=== PATIENT | female | born 1985 | race African-American/Black ===

== ENCOUNTER 2016-09-02 09:17 | Emergency (ER) | payer MEDICAID ==
[2016-09-02] MEDS ORDERED: NORMAL SALINE 1000 ML 1,000 ML IV ONE (11:27)
[2016-09-02] MEDS ORDERED: ACETAMINOPHEN 325 MG TABLET PO ONE (11:27)
[2016-09-02] MEDS ORDERED: DIPHENHYDRAMINE HCL 50 MG/ML VIAL IV ONE (11:27)
[2016-09-02 11:41] LABS: ABSOLUTE EOSINOPHILS # (AUTO) 0.1 10^3/uL (0.0-0.6); ABSOLUTE LYMPHOCYTES (AUTO) 2.1 10^3/uL (0.5-4.7); ABSOLUTE MONOCYTES (AUTO) 0.3 10^3/uL (0.1-1.4); ABSOLUTE NEUT (AUTO) 4.3 10^3/uL (1.7-8.2); BASOPHILS % (AUTO) 0.5 % (0-2); EOSINOPHILS % (AUTO) 0.8 % (0-6); HEMATOCRIT 40.6 % (36.0-47.0); HEMOGLOBIN 12.8 g/dL (12.0-15.5); HGB HCT DIFFERENCE -2.2; LYMPHOCYTES % (AUTO) 30.5 % (13-45); MEAN CORPUSCULAR HEMOGLOBIN 24.3 pg (27.0-33.4); MEAN CORPUSCULAR HGB CONC 31.4 g/dL (32.0-36.0); MEAN CORPUSCULAR VOLUME 77 fl (80-97); RED BLOOD COUNT 5.26 10^6/uL (3.72-5.28); RED CELL DISTRIBUTION WIDTH 18.1 % (11.5-14.0); SEGMENTED NEUTROPHILS % (AUTO) 63.2 % (42-78); WHITE BLOOD COUNT 6.9 10^3/uL (4.0-10.5)
[2016-09-02 12:00] LABS: ADD ON TESTING BLD IN LAB ACKNOWLEDGE; ALANINE AMINOTRANSFERASE 39 U/L (9-52); ALBUMIN 4.6 g/dL (3.5-5.0); ALKALINE PHOSPHATASE 85 U/L (38-126); ANION GAP 15 (5-19); ASPARTATE AMINO TRANSFERASE 22 U/L (14-36); BILIRUBIN,TOTAL 0.9 mg/dL (0.2-1.3); BLOOD UREA NITROGEN 7 mg/dL (7-20); CALCIUM 9.8 mg/dL (8.4-10.2); CARBON DIOXIDE 22 mmol/L (22-30); CHLORIDE 102 mmol/L (98-107); CREATININE RESULT 0.82 mg/dL (0.52-1.25); GLUCOSE 80 mg/dL (75-110); LIPASE 46.3 U/L (23-300); POTASSIUM 3.8 mmol/L (3.6-5.0); SODIUM 139.3 mmol/L (137-145)
[2016-09-02 12:26] LABS: AMORPHOUS SEDIMENT,URINE TRACE /HPF; APPEARANCE,URINE TURBID; BILIRUBIN,URINE NEGATIVE (NEGATIVE); GLUCOSE, URINE NEGATIVE (NEGATIVE); KETONES,URINE TRACE mg/dL (NEGATIVE); LEUKOCYTE ESTERASE,URINE NEGATIVE (NEGATIVE); NITRITE,URINE NEGATIVE (NEGATIVE); PROTEIN,URINE 30 mg/dL (NEGATIVE); URINE SPECIFIC GRAVITY 1.027; UROBILINOGEN,URINE NEGATIVE mg/dL (<2.0)
--- NOTE | 2016-09-02 12:34 | ER Document Report ---
ED GI/ - General Chief Complaint: Vomiting Stated Complaint: NAUSEA/HEADACHE Mode of Arrival: Ambulatory Information source: Patient Notes: Patient presents complaining of headache pain off and on daily for the past 2 months. Patient also reports nausea and vomiting for the past week. Patient reports vomiting 2 episodes today. Patient denies any fever or urinary symptoms. Patient does report lower abdominal pain for the past 2-3 days that wraps around to her lower back area. Patient denies any vaginal bleeding or discharge. Patient is concerned that she may be as her last menstrual period was in June. TRAVEL OUTSIDE OF THE [place] IN LAST 30 DAYS: No - HPI Patient complains to provider of: Abdominal pain. No: Vaginal bleeding, Vaginal discharge Onset: Other - Abdominal pain x1 week, headache 2 months off and on Timing/Duration: Gradual Quality of pain: Cramping Pain Level: 5 Location: Low back, Pelvis Vaginal bleeding (Compared to normal period): None Sexual history: Active, Unprotected intercourse Associated symptoms: Nausea, Vomiting. denies: Dysuria, Fever, Urinary hesitancy, Urinary frequency, Urinary retention, Urinary urgency, Vaginal discharge Exacerbated by: Denies Relieved by: Denies Similar symptoms previously: Yes Recently seen / treated by doctor: No - Related Data Allergies/Adverse Reactions: No Known Allergies Allergy (Verified 09/02/16 09:34) Past Medical History - General Information source: Patient Last Menstrual Period: 06/2016 - Social History Smoking Status: Current Some Day Smoker Chew tobacco use (# tins/day): No Frequency of alcohol use: None Drug Abuse: None Occupation: none Lives with: Family Family History: Reviewed & Not Pertinent Patient has suicidal ideation: No Patient has homicidal ideation: No - Past Medical History Cardiac Medical History: Reports: Hx Hypertension - preclampsia Pulmonary Medical History: Denies: Hx Tuberculosis Endocrine Medical History: Reports: Hx Diabetes Mellitus Type 2 - gestational Renal/ Medical History: Denies: Hx Peritoneal Dialysis Skin Medical History: Reports Hx MRSA Surgical Hx: Negative - Immunizations Immunizations up to date: Yes Hx Diphtheria, Pertussis, Tetanus Vaccination: Yes Review of Systems - Review of Systems Constitutional: No symptoms reported. denies: Fever, Recent illness EENT: No symptoms reported. denies: Blurred vision Cardiovascular: No symptoms reported. denies: Chest pain Respiratory: No symptoms reported. denies: Cough, Short of breath Gastrointestinal: Abdominal pain, Nausea, Vomiting Genitourinary: No symptoms reported. denies: Dysuria, Flank pain Female Genitourinary: - Possible. denies: Vaginal discharge, Vaginal bleeding Musculoskeletal: Back pain Skin: No symptoms reported Hematologic/Lymphatic: No symptoms reported Neurological/Psychological: No symptoms reported Physical Exam - Vital signs Vitals: Temp Pulse Resp BP Pulse Ox 98.0 F 77 18 149/85 H 100 09/02/16 09:32 09/02/16 09:32 09/02/16 09:32 09/02/16 09:32 09/02/16 09:32 - General General appearance: Appears well, Alert In distress: None Notes: PHYSICAL EXAMINATION: GENERAL: Morbidly obese, Well-appearing and in no acute distress. HEAD: Atraumatic, normocephalic. EYES: sclera anicteric, conjunctiva are normal.PERRL ENT: nares patent. Moist mucous membranes. NECK: Normal range of motion, supple without lymphadenopathy, no meningismus LUNGS: CTAB and equal. No wheezes rales or rhonchi. HEART: Regular rate and rhythm without murmurs ABDOMEN: Soft, lower pelvic tenderness, normal bowel sounds, no guarding. EXTREMITIES: Normal range of motion, no pitting edema. No cyanosis. BACK: No midline tenderness, no step-off or deformity. No CVA tenderness, lower lumbar paraspinal tenderness NEUROLOGICAL: Cranial nerves grossly intact. Normal speech. Normal gait. PSYCH: Normal mood, normal affect. SKIN: Warm, Dry, normal turgor, no rashes or lesions noted Course - Re-evaluation Re-evalutation: 09/02/16 12:[address] Perez regarding patient presentation, exam findings and history. Agrees with plan for US of abd if preg test positive and recommends CT imaging of the head. 09/02/16 15:09 Reviewed patient's diagnostic studies as well as repeat blood pressure with Dr. Perez. Manual blood pressure 152/89. Recommends consultation with [facility] [employer] on- call. Consulted with Dr. Hauser and discussed patient's history, presentation symptoms. Reviewed patient's diagnostics. Recommends having patient start labetalol 200 mg orally twice a day and to follow-up with the health department on Monday. 09/02/16 15:[address] Perez consultation with Dr. Hauser, and the planned medication regimen. Advises only placing patient on labetalol 100 mg orally twice a day (given BP reading) and to have the [facility] service titrate her medication as needed. Discussed plan of care with patient. Patient encouraged to follow-up with health Department on Monday for further evaluation. - Vital Signs Vital signs: Temp Pulse Resp BP Pulse Ox 97.8 F 64 18 139/67 H 100 09/02/16 15:27 09/02/16 15:27 09/02/16 15:27 09/02/16 15:27 09/02/16 15:27 - Laboratory Result Diagrams: 09/02/16 09:50 09/02/16 09:50 Laboratory results interpreted by me: 09/02/16 09/02/16 09/02/16 09:50 09:50 09:50 MCV 77 L MCH 24.3 L MCHC 31.4 L RDW 18.1 H Serum HCG, Qual POSITIVE H Beta HCG, Quant Urine Protein 30 H Urine Ketones TRACE H 09/02/16 09:50 MCV MCH MCHC RDW Serum HCG, Qual Beta HCG, Quant 58983.00 H Urine Protein Urine Ketones 09/02/16 14:49 Labs- Entire Visit 09/02/16 09/02/16 09/02/16 09:50 09:50 09:50 WBC 6.9 RBC 5.26 Hgb 12.8 Hct 40.6 MCV 77 L MCH 24.3 L MCHC 31.4 L RDW 18.1 H Plt Count 446 Seg Neutrophils % 63.2 Lymphocytes % 30.5 Monocytes % 5.0 Eosinophils % 0.8 Basophils % 0.5 Absolute Neutrophils 4.3 Absolute Lymphocytes 2.1 Absolute Monocytes 0.3 Absolute Eosinophils 0.1 Absolute Basophils 0.0 Sodium 139.3 Potassium 3.8 Chloride 102 Carbon Dioxide 22 Anion Gap 15 BUN 7 Creatinine 0.82 Est GFR ( Amer) > 60 Est GFR (Non-Af Amer) > 60 Glucose 80 Calcium 9.8 Total Bilirubin 0.9 Direct Bilirubin 0.0 AST 22 ALT 39 Alkaline Phosphatase 85 Total Protein 8.0 Albumin 4.6 Lipase 46.3 Serum HCG, Qual POSITIVE H Beta HCG, Quant Total Beta HCG Urine Color Urine Appearance Urine pH Ur Specific [place] Urine Protein Urine Glucose (UA) Urine Ketones Urine Blood Urine Nitrite Urine Bilirubin Urine Urobilinogen Ur Leukocyte Esterase Urine WBC (Auto) Urine RBC (Auto) Squamous Epi Cells Auto Amorphous Sediment Auto Urine Mucus (Auto) Urine Ascorbic Acid 09/02/16 09/02/16 09:50 09:50 WBC RBC Hgb Hct MCV MCH MCHC RDW Plt Count Seg Neutrophils % Lymphocytes % Monocytes % Eosinophils % Basophils % Absolute Neutrophils Absolute Lymphocytes Absolute Monocytes Absolute Eosinophils Absolute Basophils Sodium Potassium Chloride Carbon Dioxide Anion Gap BUN Creatinine Est GFR ( Amer) Est GFR (Non-Af Amer) Glucose Calcium Total Bilirubin Direct Bilirubin AST ALT Alkaline Phosphatase Total Protein Albumin Lipase Serum HCG, Qual Beta HCG, Quant 66953.00 H Total Beta HCG POSITIVE Urine Color YELLOW Urine Appearance TURBID Urine pH 5.0 Ur Specific [place] 1.027 Urine Protein 30 H Urine Glucose (UA) NEGATIVE Urine Ketones TRACE H Urine Blood NEGATIVE Urine Nitrite NEGATIVE Urine Bilirubin NEGATIVE Urine Urobilinogen NEGATIVE Ur Leukocyte Esterase NEGATIVE Urine WBC (Auto) 4 Urine RBC (Auto) 1 Squamous Epi Cells Auto 7 Amorphous Sediment Auto TRACE Urine Mucus (Auto) MANY Urine Ascorbic Acid NEGATIVE 09/02/16 14:50 09/02/16 15:10 09/02/16 18:54 - Diagnostic Test Radiology reviewed: Reports reviewed Discharge - Discharge Clinical Impression: Hypertension affecting in first trimester Qualifiers: Weeks of gestation: 8 weeks Qualified Code(s): Z3A.08 - 8 weeks gestation of Head ache Qualifiers: Headache type: unspecified Headache chronicity pattern: unspecified pattern Intractability: not intractable Qualified Code(s): R51 - Headache Subchorionic bleed Qualifiers: Fetus number: single or unspecified fetus Trimester: first trimester Qualified Code(s): O41.8X10 - Other specified disorders of amniotic fluid and membranes, first trimester, not applicable or unspecified Condition: Stable Disposition: HOME, SELF-CARE Instructions: ([facility]), Pelvic Pain in ([facility]), Hypertension in ([facility]), Headache ([facility]), Nausea or Vomiting, Nonspecific ([facility]), Use of Diphenhydramine Additional Instructions: Return immediately for any new or worsening symptoms Followup with the health department on Monday for recheck You may take Benadryl [id number] as directed to help with her nausea and vomiting symptoms Take Tylenol [id number] to help with headache pain. Prescriptions: Labetalol HCl 100 mg PO BID #60 tablet Labetalol HCl [Normodyne 200 mg Tablet] 200 mg PO Q12 #60 tablet Referrals: JOAO ROLLE MD [Primary Care Provider] - Follow up as needed [facility]NO LOCAL MD] - 09/05/16
[2016-09-02 15:39] VITALS: BP 139/67
== END 2016-09-02 15:45 | disposition home or self-care (01) ==
LOC: ER 09:17
DX: O16.1 Unspecified maternal hypertension, first trimester (principal); O26.891 Other specified pregnancy related conditions, first trimester; R51 Headache; R10.30 Lower abdominal pain, unspecified; O20.8 Other hemorrhage in early pregnancy; O99.331 Smoking (tobacco) complicating pregnancy, first trimester; F17.200 Nicotine dependence, unspecified, uncomplicated; Z86.14 Personal history of Methicillin resistant Staphylococcus aureus infection; Z3A.08 8 weeks gestation of pregnancy
CPT/HCPCS: 99284; 96361; 96374; 36415; 84702; 83690; 84703; 85025; 80053; 81001; 76817; 70450; J3490; J1200; J7030

== ENCOUNTER 2017-01-28 17:53 | Outpatient (CLI) | payer MEDICAID ==
[2017-01-28 18:45] LABS: APPEARANCE,URINE SLIGHTLY-CLOUDY; BILIRUBIN,URINE NEGATIVE (NEGATIVE); GLUCOSE, URINE NEGATIVE (NEGATIVE); KETONES,URINE NEGATIVE (NEGATIVE); LEUKOCYTE ESTERASE,URINE NEGATIVE (NEGATIVE); NITRITE,URINE NEGATIVE (NEGATIVE); PROTEIN,URINE 30 mg/dL (NEGATIVE); URINE SPECIFIC GRAVITY 1.034
[2017-01-28 19:06] LABS: URINE BARBITURATES SCREEN NEGATIVE; URINE METHADONE SCREEN NEGATIVE; URINE OPIATES LOW NEGATIVE; URINE PHENCYCLIDINE SCREEN NEGATIVE
[2017-01-28] MEDS ORDERED: HYDROXYZINE PAMOATE 50 MG CAPSULE PO PRN (19:07)
[2017-01-28 20:09] LABS: ABSOLUTE BASOPHILS # (AUTO) 0.1 10^3/uL (0.0-0.2); ABSOLUTE EOSINOPHILS # (AUTO) 0.1 10^3/uL (0.0-0.6); ABSOLUTE LYMPHOCYTES (AUTO) 2.1 10^3/uL (0.5-4.7); ABSOLUTE MONOCYTES (AUTO) 0.7 10^3/uL (0.1-1.4); ABSOLUTE NEUT (AUTO) 7.3 10^3/uL (1.7-8.2); BASOPHILS % (AUTO) 0.5 % (0-2); EOSINOPHILS % (AUTO) 1.3 % (0-6); HEMATOCRIT 33.2 % (36.0-47.0); HEMOGLOBIN 10.8 g/dL (12.0-15.5); HGB HCT DIFFERENCE -0.8; LYMPHOCYTES % (AUTO) 20.3 % (13-45); MEAN CORPUSCULAR HEMOGLOBIN 26.7 pg (27.0-33.4); MEAN CORPUSCULAR HGB CONC 32.4 g/dL (32.0-36.0); MEAN CORPUSCULAR VOLUME 82 fl (80-97); MONOCYTES % (AUTO) 6.6 % (3-13); RED BLOOD COUNT 4.03 10^6/uL (3.72-5.28); RED CELL DISTRIBUTION WIDTH 15.1 % (11.5-14.0); SEGMENTED NEUTROPHILS % (AUTO) 71.3 % (42-78); WHITE BLOOD COUNT 10.3 10^3/uL (4.0-10.5)
[2017-01-28 20:25] LABS: ALANINE AMINOTRANSFERASE 22 U/L (9-52); ALBUMIN 3.4 g/dL (3.5-5.0); ALKALINE PHOSPHATASE 103 U/L (38-126); ANION GAP 9 (5-19); ASPARTATE AMINO TRANSFERASE 14 U/L (14-36); BILIRUBIN,DIRECT 0.3 mg/dL (0.0-0.4); BILIRUBIN,TOTAL 0.4 mg/dL (0.2-1.3); BLOOD UREA NITROGEN 8 mg/dL (7-20); CALCIUM 9.1 mg/dL (8.4-10.2); CARBON DIOXIDE 22 mmol/L (22-30); CHLORIDE 108 mmol/L (98-107); CREATININE RESULT 0.71 mg/dL (0.52-1.25); GLUCOSE 70 mg/dL (75-110); LDH 373 U/L (313-618); POTASSIUM 4.3 mmol/L (3.6-5.0); SODIUM 139.2 mmol/L (137-145); URIC ACID 2.6 mg/dL (2.5-6.2)
[2017-01-28 20:38] LABS: URINE PROTEIN 10.1 mg/dL (<12)
--- NOTE | 2017-01-28 20:53 | RADIOLOGY REPORT (SQ) ---
EXAM DESCRIPTION: U/S OB LIMITED COMPLETED DATE/TIME: 01/28/2017 8:33 pm REASON FOR STUDY: 29.6wk IUP, cramping, cervical length, placenta COMPARISON: None. TECHNIQUE: Limited transabdominal grayscale ultrasound for evaluation of specific requested obstetri ashely parameters. LIMITATIONS: None. FINDINGS: CERVICAL LENGTH: 3.1 cm Closed. BELKIS: Not performed. FHR: 143 beats per minute. PRESENTATION: Transverse OTHER: No other significant findings. IMPRESSION: LIMITED OBSTETRICAL ULTRASOUND WITH MEASURED PARAMETERS DELINEATED ABOVE. Trimester of : Third trimester - 28 weeks to delivery. TECHNICAL DOCUMENTATION: JOB ID: [id number] [employer]- All Rights Reserved
[2017-01-28 21:12] LABS: ADD HIVPANEL? NO; HIV (1 AND 2) ANTIBODY NEGATIVE (NEGATIVE)
[2017-01-28 21:29] LABS: URINE CREATININE 380.2 mg/dL (16-327)
[2017-01-30 15:37] LABS: HEPATITIS C VIRUS AB <0.1 s/co ratio (0.0-0.9)
== END 2017-01-28 20:49 | disposition home or self-care (01) ==
LOC: EDSTATUS 18:20 → LC 18:22
PROVIDERS: ATTEND Obstetrics & Gynecology
DX: O47.02 False labor before 37 completed weeks of gestation, second trimester (principal); O24.419 Gestational diabetes mellitus in pregnancy, unspecified control; Z3A.29 29 weeks gestation of pregnancy
CPT/HCPCS: 36415; 76815; 80053; 80307; 81001; 82570; 82962; 83036; 83615; 84156; 84550; 85025; 86592; 86701; 86762; 86803; 86804; 87340

== ENCOUNTER 2017-02-06 14:14 | Emergency (ER) | payer MEDICAID ==
--- NOTE | 2017-02-06 15:54 | ER Document Report ---
ED Medical Screen (RME) - General Chief Complaint: Rectal Pain Stated Complaint: BACK PAIN Time Seen by Provider: 02/06/17 15:49 Notes: Is a 31-year-old female, 31 weeks , presents with rectal pain and feeling like there is a nail in her rectum for the past week. She said that she swallowed a nail when she was younger and thinks that this may be causing her symptoms. She noticed a small amount of blood in her stool the other day. She is having soft stools. PE: NAD. Abdomen soft and non-tender. I have greeted and performed a rapid initial assessment of this patient. A comprehensive ED assessment and evaluation of the patient, analysis of test results and completion of the medical decision making process will be conducted by additional ED providers. TRAVEL OUTSIDE OF THE [place] IN LAST 30 DAYS: No - Related Data Allergies/Adverse Reactions: No Known Allergies Allergy (Verified 02/06/17 14:20) Past Medical History - Past Medical History Cardiac Medical History: Reports: Hx Hypertension - preclampsia Pulmonary Medical History: Denies: Hx Tuberculosis Endocrine Medical History: Reports: Hx Diabetes Mellitus Type 2 - gestational Renal/ Medical History: Denies: Hx Peritoneal Dialysis Skin Medical History: Reports Hx MRSA - Immunizations Immunizations up to date: Yes Hx Diphtheria, Pertussis, Tetanus Vaccination: Yes Physical Exam - Vital signs Vitals: Temp Pulse Resp BP Pulse Ox 97.9 F 104 H 20 145/85 H 98 02/06/17 14:20 02/06/17 14:20 02/06/17 14:20 02/06/17 14:20 02/06/17 14:20 Course - Vital Signs Vital signs: Temp Pulse Resp BP Pulse Ox 97.9 F 104 H 20 145/85 H 98 02/06/17 14:20 02/06/17 14:20 02/06/17 14:20 02/06/17 14:20 02/06/17 14:20
--- NOTE | 2017-02-06 16:30 | ER Document Report ---
ED General - General Mode of Arrival: Ambulatory Information source: Patient TRAVEL OUTSIDE OF THE [place] IN LAST 30 DAYS: No - HPI Onset: Other - 1 week Quality of pain: Achy, Burning, Sharp, Stabbing, Throbbing Exacerbated by: Other - pain is worse at night time - General Chief Complaint: Rectal Pain Stated Complaint: BACK PAIN Time Seen by Provider: 02/06/17 15:49 Notes: 1616 Patient is a 31 year old female who presents to the ED with complaints of rectal pain followed by low back pain with onset 1 week ago. Patient states the pain is in the bilateral sides of her back and is constant and worse at night. Patient states the pain is sharp, stabbing, aching, burning and throbbing. Patient states when she was younger she swallowed a 9cm nail and upon being evaluated she was told it disappeared and it was unknown where it was located. Patient states she believes the nail is in her bowels and that is causing the pain she is feeling. Patient states she has dealt with constipation ever since this incident. Patient is currently 31 weeks . Patient is G6, P3, A2. Patient denies any burning with urination or hematuria. Patient states 2 days ago she had blood in her stool. Patient states her only complication with is that she has protein in her urine that she was informed of 2 days ago. Patient states she was being seen at the health department but was given a referral to [facility]. Patient states she has had normal movement. Patient has not taken Tylenol or anything for her pain and denies pain medication at this time. No other concerns or complaints at this time. (JOVITA BASHIR) - Related Data Allergies/Adverse Reactions: No Known Allergies Allergy (Verified 02/06/17 14:20) Past Medical History - General Information source: Patient - Social History Smoking Status: Current Every Day Smoker Cigarette use (# per day): Yes Chew tobacco use (# tins/day): No Frequency of alcohol use: None Drug Abuse: None Family History: Reviewed & Not Pertinent Patient has suicidal ideation: No Patient has homicidal ideation: No - Medical History Medical History: Negative - Past Medical History Cardiac Medical History: Reports: Hx Hypertension - preclampsia Pulmonary Medical History: Denies: Hx Tuberculosis Endocrine Medical History: Reports: Hx Diabetes Mellitus Type 2 - gestational Renal/ Medical History: Denies: Hx Peritoneal Dialysis Skin Medical History: Reports Hx MRSA - Immunizations Immunizations up to date: Yes Hx Diphtheria, Pertussis, Tetanus Vaccination: Yes Review of Systems - Review of Systems Constitutional: No symptoms reported EENT: No symptoms reported Cardiovascular: No symptoms reported Respiratory: No symptoms reported Gastrointestinal: See HPI, Constipation, Rectal bleeding - 2 days ago Genitourinary: No symptoms reported. denies: Burning, Hematuria Female Genitourinary: No symptoms reported Musculoskeletal: See HPI, Back pain - low Skin: No symptoms reported Hematologic/Lymphatic: No symptoms reported Neurological/Psychological: No symptoms reported Physical Exam - Vital signs Vitals: Temp Pulse Resp BP Pulse Ox 97.9 F 104 H 20 145/85 H 98 02/06/17 14:20 02/06/17 14:20 02/06/17 14:20 02/06/17 14:20 02/06/17 14:20 - Notes Notes: GENERAL: Alert, interacts well. No acute distress. Overweight HEAD: Normocephalic, atraumatic. EYES: Pupils equal, round, and reactive to light. Extraocular movements intact. ENT: Oral mucosa moist, tongue midline. NECK: Full range of motion. Supple. Trachea midline. LUNGS: Clear to auscultation bilaterally, no wheezes, rales, or rhonchi. No respiratory distress. HEART: Regular rate and rhythm. No murmurs, gallops, or rubs. ABDOMEN: Abdomen is gravid consistent with dates, RLQ tenderness to palpation. Bowel sounds present in all 4 quadrants. No guarding, rebound or rigidity. BACK: tenderness to palpation over right SI joint RECTAL: appears to have mild tenderness on rectal exam, no blood present, 1 non thrombosed external hemorrhoid at the 6 o'clock position, no evidence of nail foreign body in rectum after ingestion of foreign body 15 years ago; Chaperoned by Justina Singh EXTREMITIES: Moves all 4 extremities spontaneously. No edema, radial and dorsalis pedis pulses 2/4 bilaterally. No cyanosis. NEUROLOGICAL: Alert and oriented x3. Normal speech. Biceps and patellar DTRs 2+ bilaterally. PSYCH: Normal affect, normal mood. SKIN: Warm, dry, normal turgor. No rashes or lesions noted. (JOVITA BASHIR) Course - Re-evaluation Re-evalutation: 02/06/17 17:55 Urinalysis shows minimal protein but no signs of infection or blood. At present symptoms are not consistent with a nail that she swallowed 15 years ago possibly causing her pain. Given the fact that she is I do not feel it is prudent to perform an x-ray to look for radiopaque foreign body that was ingested 15 years ago. Presentation is more consistent with SI joint pain related to . Discussed stretches and positioning techniques that can reduce this pain. Discharged home. (GABRIEL GARCIA) - Vital Signs Vital signs: Temp Pulse Resp BP Pulse Ox 97.9 F 101 H 19 132/82 H 99 02/06/17 14:20 02/06/17 18:15 02/06/17 18:15 02/06/17 18:15 02/06/17 18:15 - Laboratory Laboratory results interpreted by me: 02/06/17 16:35 Urine Protein 30 H Urine Urobilinogen 4.0 H Discharge - Discharge Clinical Impression: Pain of right sacroiliac joint, Third trimester Condition: Stable Disposition: HOME, SELF-CARE Additional Instructions: Please try sleeping on your side with a pillow between her knees. This can decrease some of the pain that you are having in your back. Please also try arching her back into a cat like position several times a day to stretch your back. This can also help to relieve your pain. Referrals: SHAI ACUNA MD [ACTIVE STAFF] - Follow up as needed Scribe Attestation: 02/06/17 20:20 I personally performed the services described in the documentation, reviewed and edited the documentation which was dictated to the scribe in my presence, and it accurately records my words and actions. (GABRIEL GARCIA) Scribe Documentation - Scribe Written by Rachel:: rachel Walton, 02/06/2017, 1809 acting as scribe for :: Tiffany
[2017-02-06 16:51] LABS: APPEARANCE,URINE SLIGHTLY-CLOUDY; BILIRUBIN,URINE NEGATIVE (NEGATIVE); GLUCOSE, URINE NEGATIVE (NEGATIVE); KETONES,URINE NEGATIVE (NEGATIVE); LEUKOCYTE ESTERASE,URINE NEGATIVE (NEGATIVE); NITRITE,URINE NEGATIVE (NEGATIVE); PROTEIN,URINE 30 mg/dL (NEGATIVE); URINE SPECIFIC GRAVITY 1.031
[2017-02-06 18:16] VITALS: BP 132/82
== END 2017-02-06 18:15 | disposition home or self-care (01) ==
LOC: ER 14:14
DX: O26.893 Other specified pregnancy related conditions, third trimester (principal); M53.3 Sacrococcygeal disorders, not elsewhere classified; O99.333 Smoking (tobacco) complicating pregnancy, third trimester; F17.213 Nicotine dependence, cigarettes, with withdrawal; O14.93 Unspecified pre-eclampsia, third trimester; O24.419 Gestational diabetes mellitus in pregnancy, unspecified control; Z3A.31 31 weeks gestation of pregnancy; Z86.14 Personal history of Methicillin resistant Staphylococcus aureus infection
CPT/HCPCS: 81001; 99283

== ENCOUNTER → 2017-02-09 | Outpatient (CLI) | payer MEDICAID ==
--- NOTE | 2017-02-09 18:03 | RADIOLOGY REPORT (SQ) ---
EXAM DESCRIPTION: U/S OB 14+ TRNABD 1GES W/O DOP COMPLETED DATE/TIME: 02/09/2017 5:09 pm REASON FOR STUDY: THIRD TRIMESTER SIZE AND DATES AND ANATOMY SCAN Z34.83 ENCOUNTER FOR SUPRVSN OF N ORMAL , THIRD TRIM COMPARISON: 09/02/2016, 01/28/2017 TECHNIQUE: Static and Dynamic grayscale imaging performed of gravid uterus using transabdominal appr oach. Additional selected color Doppler and spectral images recorded. All stored on PACS. LIMITATIONS: None. FINDINGS: EGA: By multiple measurements, estimated age is 31 weeks 4 days ELIANA: 04/09/2017 EFW: 1739 g PERCENTILE: 42nd percentile BELKIS: 7.7 cm PLACENTA: Fundal PRESENTATION: Breech ANATOMY: HEART RATE: 162 beats per minute. FOUR CHAMBER HEART: Visualized. THREE VESSEL CORD: Yes. CORD INSERTION: Visualized. KIDNEYS AND BLADDER: Visualized. Appear normal. STOMACH: Visualized. Appears normal. SPINE: Normal as visualized. BRAIN AND LATERAL VENTRICLES: Visualized. Appear normal. OTHER: No other significant finding. MATERNAL ADNEXA: Maternal ovaries not visualized. CERVICAL LENGTH: 3.7 cm Closed. OTHER: No other significant finding. IMPRESSION: LIVING INTRAUTERINE . ESTIMATED GESTATIONAL AGE 31 weeks 4 days NO VISUALIZED ANOMALIES. Trimester of : Third trimester - 28 weeks to delivery. TECHNICAL DOCUMENTATION: JOB ID: [id number] [employer]- All Rights Reserved
== END ==
LOC: RAD 15:06
PROVIDERS: ATTEND Nurse Practitioner Women's Health
DX: Z34.83 Encounter for supervision of other normal pregnancy, third trimester (principal)
CPT/HCPCS: 76805

== ENCOUNTER 2017-02-10 22:04 | Outpatient (CLI) | payer MEDICAID ==
[2017-02-10 22:53] LABS: APPEARANCE,URINE SLIGHTLY-CLOUDY; BILIRUBIN,URINE NEGATIVE (NEGATIVE); GLUCOSE, URINE NEGATIVE (NEGATIVE); KETONES,URINE 20 mg/dL (NEGATIVE); LEUKOCYTE ESTERASE,URINE SMALL (NEGATIVE); NITRITE,URINE NEGATIVE (NEGATIVE); PROTEIN,URINE 100 mg/dL (NEGATIVE); URINE SPECIFIC GRAVITY 1.035
[2017-02-10 23:02] LABS: URINE BARBITURATES SCREEN NEGATIVE; URINE METHADONE SCREEN NEGATIVE; URINE OPIATES LOW NEGATIVE; URINE PHENCYCLIDINE SCREEN NEGATIVE
[2017-02-10] MEDS ORDERED: ACETAMINOPHEN 325 MG TABLET PO ONE (23:08)
[2017-02-10] MEDS ORDERED: PROCHLORPERAZINE MALEATE 10 MG TABLET PO ONE (23:08)
[2017-02-10] MEDS ORDERED: PROCHLORPERAZINE MALEATE 10 MG TABLET ONE (23:12)
[2017-02-10] MEDS ORDERED: ACETAMINOPHEN 325 MG TABLET ONE (23:13)
== END 2017-02-11 00:15 | disposition home or self-care (01) ==
LOC: LC 22:04
PROVIDERS: ATTEND Obstetrics & Gynecology
PROC: 4A1HXCZ Monitoring of Products of Conception, Cardiac Rate, External Approach (ICD-10-PCS; principal; 2017-02-10)
DX: O47.03 False labor before 37 completed weeks of gestation, third trimester (principal); Z3A.31 31 weeks gestation of pregnancy
CPT/HCPCS: 59899; 81001; 80307; J3490; S0183

== ENCOUNTER 2017-02-14 08:15 | Emergency (ER) | payer MEDICAID ==
[2017-02-14] MEDS ORDERED: DIPH/PERTUSS(ACELL)/TETANUS VAC/PF 0.5 ML SYR (>=10YO) IM ONE (08:59)
--- NOTE | 2017-02-14 09:17 | ER Document Report ---
ED Animal Bite - General Chief Complaint: Cat Bite Stated Complaint: LEFT HAND CAT BITE Time Seen by Provider: 02/14/17 08:41 Mode of Arrival: Ambulatory Information source: Patient Notes: Pt is a 31 year old female 32 weeks , who presents to the ER today for bite to her left hand that occurred 2 days ago while trying to help a friend get a stray cat out of her car. Patient's daughter was also with her and bitten by the cat. She states that they did not catch the cat as it ran away after the incident. She states the animal control is aware and still has not coughed. She went to her STAFF FIELD ENGINEER who recommended that she be seen by someone. She denies any redness, drainage from the bite, fever or chills. She states that it does not really hurt anymore. TRAVEL OUTSIDE OF THE [place] IN LAST 30 DAYS: No - Related Data Allergies/Adverse Reactions: No Known Allergies Allergy (Verified 02/06/17 14:20) Past Medical History - General Information source: Patient - Social History Smoking Status: Never Smoker Chew tobacco use (# tins/day): No Frequency of alcohol use: None Drug Abuse: None Family History: Reviewed & Not Pertinent - Past Medical History Cardiac Medical History: Reports: Hx Hypertension - preclampsia Pulmonary Medical History: Denies: Hx Tuberculosis Endocrine Medical History: Reports: Hx Diabetes Mellitus Type 2 - gestational Renal/ Medical History: Denies: Hx Peritoneal Dialysis Skin Medical History: Reports Hx MRSA - Immunizations Immunizations up to date: Yes Hx Diphtheria, Pertussis, Tetanus Vaccination: Yes Review of Systems - Review of Systems Constitutional: No symptoms reported EENT: No symptoms reported Cardiovascular: No symptoms reported Respiratory: No symptoms reported Gastrointestinal: No symptoms reported Genitourinary: No symptoms reported Female Genitourinary: No symptoms reported Musculoskeletal: No symptoms reported Skin: See HPI Hematologic/Lymphatic: No symptoms reported Neurological/Psychological: No symptoms reported Physical Exam - Vital signs Vitals: Temp Pulse Resp BP Pulse Ox 98.1 F 87 16 141/80 H 97 02/14/17 08:22 02/14/17 08:22 02/14/17 08:22 02/14/17 08:22 02/14/17 08:22 - Notes Notes: PHYSICAL EXAMINATION: GENERAL: Well-appearing and in no acute distress. HEAD: Atraumatic, normocephalic. EYES: Pupils equal round and reactive to light, extraocular movements intact, sclera anicteric, conjunctiva are normal. NECK: Normal range of motion, supple without lymphadenopathy LUNGS: CTAB and equal. No wheezes rales or rhonchi. HEART: Regular rate and rhythm without murmurs EXTREMITIES: Normal range of motion, no pitting edema. No cyanosis. NEUROLOGICAL: Cranial nerves grossly intact. Normal sensory/motor exams. PSYCH: Normal mood, normal affect. SKIN: Warm, Dry, normal turgor, 3 tiny puncture anthony with scabs overlying to left dorsal hand at base of 1st digit, no drainage, no erythema, no tenderness to palpation Course - Re-evaluation Re-evalutation: 02/14/17 10:29 Pt refused rabies prophylaxis although I strongly encouraged it due to not having the cat to observe for rabies. She states her STAFF FIELD ENGINEER sent her here to be admitted for rabies injections to "monitor the baby." I did advise her that there is no risk noted with rabies post exposure prophylaxis and that there is no reason to admit her for rabies immunoglobulin and vaccination, she still wants to go back to [place] where her STAFF FIELD ENGINEER is. She states that " [facility] will admit me." I did start her on Augmentin. - Vital Signs Vital signs: Temp Pulse Resp BP Pulse Ox 98.1 F 80 16 142/79 H 98 02/14/17 08:22 02/14/17 09:37 02/14/17 09:37 02/14/17 09:37 02/14/17 09:37 Discharge - Discharge Clinical Impression: Cat bite Qualifiers: Encounter type: initial encounter Qualified Code(s): W55.01XA - Bitten by cat, initial encounter Condition: Stable Disposition: HOME, SELF-CARE Additional Instructions: Return immediately for any new or worsening symptoms. Follow up with primary care provider, call tomorrow to make followup appointment. Prescriptions: Amox Tr/Potassium Clavulanate [Augmentin 875-125 Tablet] 1 tab PO BID 10 Days
[2017-02-14 09:42] VITALS: BP 142/79
== END 2017-02-14 09:38 | disposition home or self-care (01) ==
LOC: ER 08:15
DX: O9A.213 Injury, poisoning and certain other consequences of external causes complicating pregnancy, third trimester (principal); S61.452A Open bite of left hand, initial encounter; W55.01XA Bitten by cat, initial encounter; Z3A.32 32 weeks gestation of pregnancy; Z20.3 Contact with and (suspected) exposure to rabies
CPT/HCPCS: 99283

== ENCOUNTER 2017-04-04 07:16 | Inpatient (IN) | payer MEDICAID ==
[2017-04-04 07:46] LABS: APPEARANCE,URINE SLIGHTLY-CLOUDY; BILIRUBIN,URINE NEGATIVE (NEGATIVE); GLUCOSE, URINE NEGATIVE (NEGATIVE); KETONES,URINE NEGATIVE (NEGATIVE); LEUKOCYTE ESTERASE,URINE MODERATE (NEGATIVE); NITRITE,URINE NEGATIVE (NEGATIVE); PROTEIN,URINE 30 mg/dL (NEGATIVE); URINE SPECIFIC GRAVITY 1.016; UROBILINOGEN,URINE NEGATIVE mg/dL (<2.0)
[2017-04-04 08:05] LABS: URINE BARBITURATES SCREEN NEGATIVE; URINE METHADONE SCREEN NEGATIVE; URINE OPIATES LOW NEGATIVE; URINE PHENCYCLIDINE SCREEN NEGATIVE
[2017-04-04 09:25] LABS: ABSOLUTE BASOPHILS # (AUTO) 0.1 10^3/uL (0.0-0.2); ABSOLUTE EOSINOPHILS # (AUTO) 0.1 10^3/uL (0.0-0.6); ABSOLUTE LYMPHOCYTES (AUTO) 1.6 10^3/uL (0.5-4.7); ABSOLUTE MONOCYTES (AUTO) 0.5 10^3/uL (0.1-1.4); ABSOLUTE NEUT (AUTO) 8.8 10^3/uL (1.7-8.2); BASOPHILS % (AUTO) 0.7 % (0-2); HEMATOCRIT 34.2 % (36.0-47.0); HEMOGLOBIN 11.1 g/dL (12.0-15.5); HGB HCT DIFFERENCE -0.9; LYMPHOCYTES % (AUTO) 14.7 % (13-45); MEAN CORPUSCULAR HEMOGLOBIN 25.7 pg (27.0-33.4); MEAN CORPUSCULAR HGB CONC 32.4 g/dL (32.0-36.0); MEAN CORPUSCULAR VOLUME 79 fl (80-97); MONOCYTES % (AUTO) 4.2 % (3-13); RED BLOOD COUNT 4.31 10^6/uL (3.72-5.28); RED CELL DISTRIBUTION WIDTH 16.2 % (11.5-14.0); SEGMENTED NEUTROPHILS % (AUTO) 79.4 % (42-78)
[2017-04-04 09:43] LABS: URINE CREATININE 223.3 mg/dL (16-327); URINE PROTEIN 17.1 mg/dL (<12)
[2017-04-04 09:45] LABS: ALANINE AMINOTRANSFERASE 21 U/L (9-52); ALBUMIN 3.6 g/dL (3.5-5.0); ALKALINE PHOSPHATASE 172 U/L (38-126); ANION GAP 10 (5-19); ASPARTATE AMINO TRANSFERASE 17 U/L (14-36); BILIRUBIN,DIRECT 0.4 mg/dL (0.0-0.4); BILIRUBIN,TOTAL 0.5 mg/dL (0.2-1.3); BLOOD UREA NITROGEN 5 mg/dL (7-20); CALCIUM 9.3 mg/dL (8.4-10.2); CARBON DIOXIDE 21 mmol/L (22-30); CHLORIDE 107 mmol/L (98-107); CREATININE RESULT 0.63 mg/dL (0.52-1.25); GLUCOSE 74 mg/dL (75-110); LDH 447 U/L (313-618); SODIUM 138.2 mmol/L (137-145); TOTAL PROTEIN 7.2 g/dL (6.3-8.2); URIC ACID 2.8 mg/dL (2.5-6.2)
[2017-04-04 10:26] LABS: ADD HIVPANEL? NO; HIV (1 AND 2) ANTIBODY NEGATIVE (NEGATIVE)
[2017-04-04 10:35] LABS: CHLAM PCR NOT DETECTED (NOT DETECT)
[2017-04-04] MEDS ORDERED: CITRIC ACID/SODIUM CITRATE ORAL SOLN 15 ML UDCUP ONE (12:07)
[2017-04-04] MEDS ORDERED: CEFAZOLIN 2 GM/D5W RTU 2 GM/50 ML RTUPB IV ONE (12:07)
[2017-04-04] MEDS ORDERED: PROPOFOL INJ 200 MG/20 ML VIAL IV ONE (12:11)
[2017-04-04] MEDS ORDERED: OXYTOCIN 10 UNIT/ML VIAL ONE (12:11)
[2017-04-04] MEDS ORDERED: FENTANYL CITRATE INJ/PF 100 MCG/2 ML AMPUL ONE (12:12)
[2017-04-04] MEDS ORDERED: MIDAZOLAM 2 MG/2 ML INJ ONE (12:12)
[2017-04-04] MEDS ORDERED: EPHEDRINE SULFATE INJ 50 MG/1 ML AMPULE ONE (12:12)
[2017-04-04] MEDS ORDERED: KETAMINE HCL INJ 500 MG/10 ML VIAL ONE (12:20)
[2017-04-04] MEDS ORDERED: NALBUPHINE HCL INJ 10 MG/1 ML AMPULE ONE (12:59)
[2017-04-04] MEDS ORDERED: NA PHOS,M-B/NA PHOS,DI-BA (ADULT) 133 ML ENEMA PR PRN (13:15)
[2017-04-04] MEDS ORDERED: BENZOCAINE/MENTHOL AEROSOL SPRAY 56 ML TOP PRN (13:15)
[2017-04-04] MEDS ORDERED: DIPH/PERTUSS(ACELL)/TETANUS VAC/PF 0.5 ML SYR (>=10YO) IM PRN (13:15)
[2017-04-04] MEDS ORDERED: OXYTOCIN/NORMAL SALINE 20 UNIT/1,000 ML RTUINJ IV PRN (13:15)
[2017-04-04] MEDS ORDERED: PROMETHAZINE HCL 25 MG TABLET PO PRN (13:15)
[2017-04-04] MEDS ORDERED: MEASLES,MUMPS&RUBELLA VACC/PF 0.5 ML VIAL SUBCUT PRN (13:15)
[2017-04-04] MEDS ORDERED: PROMETHAZINE HCL INJ 25 MG/1 ML VIAL IV PRN (13:15)
[2017-04-04] MEDS ORDERED: GLYCERIN/WITCH HAZEL LEAF 1 EACH MED..PAD TP PRN (13:15)
[2017-04-04] MEDS ORDERED: MAGNESIUM HYDROXIDE SUSP 30 ML UDCUP PO PRN (13:15)
[2017-04-04] MEDS ORDERED: ZOLPIDEM TARTRATE 5 MG TABLET PO PRN (13:15)
[2017-04-04] MEDS ORDERED: ACETAMINOPHEN WITH CODEINE #3 TABLET PO PRN (13:15)
[2017-04-04] MEDS ORDERED: DIBUCAINE 1% OINTMENT 28 GM TP PRN (13:15)
[2017-04-04] MEDS ORDERED: PSEUDOEPHEDRINE HCL 30 MG TABLET PO PRN (13:15)
[2017-04-04] MEDS ORDERED: DIPHENHYDRAMINE HCL 25 MG CAPSULE PO PRN (13:15)
[2017-04-04] MEDS ORDERED: ACETAMINOPHEN 650 MG SUPP.RECT PR PRN (13:15)
[2017-04-04] MEDS ORDERED: PROMETHAZINE HCL 25 MG SUPP.RECT PR PRN (13:15)
--- NOTE | 2017-04-04 13:32 | OPERATIVE REPORT E ---
Operative Report NAME: KRISTA GALVEZ : 1985 AGE: 31Y DATE OF SURGERY: 04/04/2017 ROOM: LR200 SURGEON: JOLANTA PUGH M.D. DESCRIPTION OF PROCEDURE: I was called emergently to the patient's room for a term labor with ruptured membranes, completely dilated, and a palpable foot in the vagina. At this point, I called emergency . Anesthesia arrived and we were taking her back to the OR when she began pushing and the foot and leg came out of the vagina while she was still in the hospital bed prior to moving her to the OR table. With a subsequent push, both legs were out with the babys' waist at the vagina. At this point, we abandoned the effort to do a and I asked the nurses available to call Dr. Huitron for assistance to have a second doctor in the room. Next, we had the patient push to deliver the baby up to the level of the scapula. After several pushes, she was able to push the baby out to the level of the scapula. The baby's left arm was reduced and delivered. The right arm was very high and difficult to reach at this point. Therefore, I rotated the baby in a counter clockwise motion to attempt to bring the arm down and was able to grasp the elbow and deliver the right arm. We had Piper forceps available. I had the nurse try to hold the baby up so I could place the Piper forceps, but the application was very difficult and the space was very tight. At this point, Dr. Huitron arrived and I held the baby up while he applied the Piper forceps with some difficulty, but he was able to get a good application and deliver the baby. During this time, we also had someone on the abdomen trying to flex the baby's head. The baby was delivered, the cord was cut, and the baby was taken to the nursery. The placenta spontaneously delivered. I examined the perineum and cervix vaginal wu and I saw no lacerations and bleeding was not very heavy. Her uterus was well contracted at this point. The patient was taken back to her room and her care was continued. DICTATING PHYSICIAN: JOLANTA PUGH M.D. [id number] PHY#: [id number] ID: [id number] JOB#: [id number] ACCT: [id number] cc:JOLANTA PUGH M.D. > ERAN
[2017-04-04] MEDS: IBUPROFEN 800 MG TABLET PO SCH (14:00)
[2017-04-04] MEDS ORDERED: ACETAMINOPHEN 100 ML IV ONE (14:06)
[2017-04-04] MEDS ORDERED: ACETAMINOPHEN 100 ML IV SCH (14:45)
[2017-04-04] MEDS ORDERED: MISOPROSTOL 0.2 MG TABLET ONE (15:02)
--- NOTE | 2017-04-04 15:29 | Delivery Summary ---
Del Sum A-C Datetime Report Generated by CPN: 04/04/2017 15:28 DELIVERY PERSONNEL DELIVERY PERSONNEL: ,[id number] Delivery Doctor:: Lavon Huitron MD Anesthesiologist:: Solitario Elizalde MD AUTOMATIC BUFFER:: Brook Olivier CRNA Labor and Delivery Nurse:: ASHOK Amin Labor and Delivery Nurse:: Nicole Leggett RN Environmental Tech:: ASHOK Amin Nurse Practitioner:: HERIBERTO Moody Nursery Nurse:: Nicole Veliz RN Nursery Nurse:: Aby Mitchell RN Student Observers:: [facility] [employer] TECHNICAL MANAGER: ST Becky [employer] TECHNICAL MANAGER: Denise Story CST Additional Personnel: : Dr Elo Singh MATERNAL INFORMATION Delivery Anesthesia: None Medications During Delivery: Ketamine pushed by anesthesia at delivery Medications After Delivery: Pitocin Drip 20 Units/1000ml NSS; Other-Please Comment Meds After Delivery Comment: Cytotec 1000 per rectum placed by Bernard Cross CNM Maternal Complications: Precipitous Labor (<3hrs); Other Other Maternal Complications: Breech No care LABOR SUMMARY EDC: 04/09/2017 00:00 No. Babies in Womb: 1 Attempted: No Labor Anesthesia: None LABOR INFORMATION Reason for Induction: Not Applicable Onset of Labor: 04/03/2017 01:00 Complete Dilatation: 04/04/2017 12:12 Oxytocin: N/A Group B Beta Strep: unknown Antibiotics # of Doses: ancef Antibiotics Time of Last Dose: 1210 Name of Antibiotic Given: Ancef Steroids Given: None Reason Steroids Not Administered: Not Applicable MEMBRANES Membranes Rupture Method: Spontaneous Rupture of Membranes: 04/04/2017 12:00 Length of Rupture (hr): 0.45 Amniotic Fluid Color: Clear Amniotic Fluid Amount: Large Amniotic Fluid Odor: Normal STAGES OF LABOR Stage 1 hr: 35 Stage 1 min: 12 Stage 2 hr: 0 Stage 2 min: 15 Stage 3 hr: 0 Stage 3 min: 4 Total Time in Labor hr: 35 Total Time in Labor min: 31 VAGINAL DELIVERY Episiotomy: None Laceration Extension: N/A Laceration Type: None Laceration Repair: Not Applicable Sponge Count Correct: Yes Sharps Count Correct: Yes BABY A INFORMATION Infant Delivery Date/Time: 04/04/2017 12:27 Method of Delivery: Vaginal Born in Route : No : N/A Forceps: Outlet Vacuum Extraction: N/A Shoulder Dystocia : No SHOULDER DYSTOCIA BABY A Shoulder Dystocia Comments: Delivery of feet and body of baby boy up to underarms with spontaneous push by patient at 1213 and maneuvers to resolve; suprapubic;forceps/pipers;Praneeth by MDs x 2 [address] Tomy called and in OR to help Nuchal cord reduced PRESENTATION/POSITION BABY A Presentation: Breech Cephalic Presentation: N/A Breech Presentation: Double Footling PLACENTA INFORMATION BABY A Placenta Delivery Time : 04/04/2017 12:31 Placenta Method of Delivery: Spontaneous Placenta Status: Delivered SCORES BABY A Heart Rate 1 min: Slow, Below 100 bpm Resp Effort 1 min: Absent Reflex Irritability 1 min: No Response Muscle Tone 1 min: Flaccid Color 1 min: Blue/Pale Resuscitation Effort 1 min: Tactile Stimulation; Oxygen SCORE 1 MIN: 1 Heart Rate 5 min: >100 bpm Resp Effort 5 min: Good Cry Reflex Irritability 5 min: No Response Muscle Tone 5 min: Flaccid Color 5 min: Body [place], Extremities Blue Resuscitation Effort 5 min: PPV/NCPAP; Endotracheal Intubation SCORE 5 MIN: 5 Heart Rate 10 min: >100 bpm Resp Effort 10 min: Good Cry Reflex Irritability 10 min: Grimace Muscle Tone 10 min: Some Flexion of Extremities Color 10 min: Body [place], Extremities Blue Resuscitation Effort 10 min: PPV/NCPAP SCORE 10 MIN: 7 INFANT INFORMATION BABY A Gestational Age at Delivery: 39.2 Gestational Status: Full Term- 39- 40.6 Weeks Outcome : Liveborn (Annotations: Data stored by [facility] on behalf of user) Condition : Stable Sex: Male IDENTIFICATION BABY A Verification Date/Time: 04/04/2017 12:44 ID Band Number: [id number] Mother's Name Verified: Yes Infant RN Verifying : V Monk RN Additional Verifying Personnel: Binh Javier RN WEIGHT/LENGTH BABY A Infant Birthweight (gm): 2670 Infant Weight (lb): 5 Infant Weight (oz): 14 Infant Length (in): 18.50 Infant Length (cm): 46.99 CORD INFORMATION BABY A No. Cord Vessels: 3 Nuchal Cord : Around Neck x1, Tight Cord Blood Taken: Yes-For Storage (Mom's Blood type +) Suction: Mouth; Nose ASSESSMENT BABY A Complications: Cord Prolapse; Other Complications- Other: Head entrapment Physical Findings at Delivery: Within Normal Limits Skin to Skin: No Medical Assistant Secretary/ALS Called : Yes Care By: Binh Joseph RUCHING MACHINE OPERATOR Transferred To: NICU RESUSCITATION BABY A Resuscitation Effort: see nicu record
[2017-04-04] MEDS ORDERED: MISOPROSTOL 0.2 MG TABLET PR ONE (15:33)
[2017-04-04] MEDS ORDERED: OXYTOCIN/NORMAL SALINE 20 UNIT/1,000 ML RTUINJ ONE (15:39)
--- NOTE | 2017-04-04 16:05 | L&D Progress Notes ---
PROGRESS NOTES Datetime Report Generated by CPN: 04/04/2017 16:05 PROGRESS NOTE Impression Other: hemorrhage Procedures: Sterile Vag Exam Procedures: Sterile Vag Exam Plan Other: manual removal of clots at cervix Informed Consent Obtained: Risks, Benefits and Alternatives Discussed Comment: Called into room -Pt. with increased bleeding and clots with fundual massage. fundus firm with massage. Large amount of clots noted on chux pad vaginal exam with large amounts of clots at cervix, clots out and bleeding stable 1000mcg cytotec placed rectally VAGINAL EXAM Dilatation: 10 Effacement: 100 Station: breech Contractions: irregular MEMBRANES Membranes: Ruptured Amniotic Fluid Color: Bloody FETUS A Presentation: Breech SIGNATURE SIGNATURE: ,[id number] SIGNATURE: [id number] Assignment: Leatha Singh MD Signature: with User ID: [email or web address] : with User ID: [email or web address]
[2017-04-04 16:11] LABS: ABSOLUTE BASOPHILS # (AUTO) 0.1 10^3/uL (0.0-0.2); ABSOLUTE LYMPHOCYTES (AUTO) 1.1 10^3/uL (0.5-4.7); ABSOLUTE MONOCYTES (AUTO) 0.4 10^3/uL (0.1-1.4); ABSOLUTE NEUT (AUTO) 15.2 10^3/uL (1.7-8.2); BASOPHILS % (AUTO) 0.3 % (0-2); EOSINOPHILS % (AUTO) 0.3 % (0-6); HEMATOCRIT 32.3 % (36.0-47.0); HEMOGLOBIN 10.3 g/dL (12.0-15.5); HGB HCT DIFFERENCE -1.4; LYMPHOCYTES % (AUTO) 6.5 % (13-45); MEAN CORPUSCULAR HEMOGLOBIN 25.5 pg (27.0-33.4); MEAN CORPUSCULAR HGB CONC 31.8 g/dL (32.0-36.0); MEAN CORPUSCULAR VOLUME 80 fl (80-97); MONOCYTES % (AUTO) 2.4 % (3-13); RED BLOOD COUNT 4.02 10^6/uL (3.72-5.28); RED CELL DISTRIBUTION WIDTH 16.5 % (11.5-14.0); SEGMENTED NEUTROPHILS % (AUTO) 90.5 % (42-78); WHITE BLOOD COUNT 16.7 10^3/uL (4.0-10.5)
[2017-04-04] MEDS ORDERED: CARBOPROST TROMETHAMINE INJ 250 MCG/1 ML AMPULE ONE (16:40)
[2017-04-04] MEDS ORDERED: HYDROMORPHONE HCL INJ/PF 2 MG/ML AMPULE ONE (16:51)
[2017-04-04] MEDS ORDERED: METHYLERGONOVINE MALEATE 0.2 MG TABLET ONE (18:05)
[2017-04-04] MEDS ORDERED: ACETAMINOPHEN WITH CODEINE #3 TABLET ONE (20:39)
[2017-04-04] MEDS: ACETAMINOPHEN WITH CODEINE #3 TABLET PO PRN (20:41)
--- NOTE | 2017-04-04 21:38 | Admission Physical ---
Datetime Report Generated by CPN: 04/04/2017 21:38 CURRENT ADMISSION Hx Assessment: No Care Chief Complaint: Uterine Contractions Indication for Induction: Not Applicable Admit Plan: Admit to Unit; Initiate Labor Protocol; Initiate Section Protocol ALLERGIES Medication Allergies: No Medication Allergies: No Known Allergies (04/04/2017) Medication Allergies: No Known Allergies (02/06/2017) Medication Allergies: No Known Allergies (01/28/2017) Latex: No Latex Allergies Food Allergies: None Environmental Allergies: None OBSTETRICAL HISTORY EDC: 04/09/2017 00:00 : 6 Para: 4 Term: 3 : 1 SAB: 1 IAB: 0 Ectopic: 0 Livin Cesareans: 0 VBACs: 0 Multiple Births: 0 Gestational Diabetes: Yes Rh Sensitization: No Incompetent Cervix: No KOLTON: No Infertility: No ART Treatment: No Uterine Anomaly: No IUGR: Yes Hx Previous C/S: No Macrosomia: No Hx Loss/Stillborn: Yes PIH: Yes Hx : No Placenta Previa/Abruption: No Depression/PP Depression: No PTL/PROM: Yes Post Hemorrhage: No Current Procedures: Ultrasound Obstetrical History Comments: G1 - 2010 - 5lbs 6oz, PreE, GDM - uncontrolled G2 - 2012 - 5lbs 7oz, GDM - uncontrolled G3 - 2013 - IUFD, 20wks G4 - 2015 - , 5lbs 11oz - GDM G5 - 2015 - SAB 2016 - current , no care SEE RECORDS Alcohol: No Marijuana : No Cocaine: No Other Illicit Drugs: No Cigarettes: Former Smoker. [id number] MEDICAL HISTORY Diabetes: Yes Diabetes Type: Gestational Diabetes Blood Transfusion: No Pulmonary Disease (Asthma, TB): No Breast Disease: No Hypertension: No Can Capper Surgery: No Heart Disease: No Hosp/Surgery: Yes Autoimmune Disorder: No Anesthetic Complications: No Kidney Disease: No Abnormal Pap Smear: No Neuro/Epilepsy: No Psychiatric Disorders: No Other Medical Diseases: No Hepatitis/Liver Disease: No Significant Family History: No Varicosities/Phlebitis: No Trauma/Violence : No Thyroid Dysfunction: No Medical History Comments: Hospitalized for childbirth INFECTIOUS HISTORY Gonorrhea: Yes Genital Herpes: No Chlamydia: Yes Tuberculosis: No Syphilis: No Hepatitis: No HIV/AIDS Exposure: No Rash or Viral Illness: No HPV: No PHYSICAL EXAM General: Normal HEENT: Deferred Neurologic: Normal Thyroid: Deferred Heart: Normal Lungs: Normal Breast: Deferred Back: Normal Abdomen: Normal Genitourinary Exam: Normal Extremities: Normal DTRs: Normal Pelvic Type: Adequate Vital Signs: Reviewed Details Vital Signs: normal-mild range with hx of PIH/mild pre-e VAGINAL EXAM Dilatation: 10 Effacement: 100 Station: breech Contraction Comments: irregular MEMBRANES Membranes: Ruptured Amniotic Fluid Color: Bloody FETUS A EGA: 39.2 Monitoring: External US FHR- Baseline: 140 FHR Comments: difficulty tracing Presentation: Breech Admit Comment: 31yo A pos, rubella immune, GBS unknown with no care. Presented to L_D this am with contractions and found to be 1cm dilated. No care labs ordered and U/S found in system from 02/09/17 which dates her at 39.2 today. Baby was breech on that u/s. Pt. was rechecked at 1027 per RN and found to be 2cm with bloody show. U/S brought to room to establish position and patient found to be in a lot more pain and asking for pain medication. Pt. found to be complete and breech with foot as the presenting part. SROM on exam. Dr. Singh called to unit for STAT . Medical hx is also significant for obesity, hx of GDM x2 and treated with insulin and hx of PIH/pre-e. Mild range BPs today will continue to observe. PIH Labs drawn on admission. PLANS FOR LABOR AND DELIVERY Labor and Delivery: None Pain Management: Epidural Feeding Preference: Both Benefit of Breast Feed Discussed: Yes Circumcision: N/A INFORMED CONSENT Informed Consent Obtained: Risks, Benefits and Alternatives Discussed Assignment: Leatha Singh MD Signature: with User ID: Ela : with User ID: [email or web address]
[2017-04-04] MEDS ORDERED: DIPHENOXYLATE HCL/ATROP SULF 2.5-0.025 MG TABLET PO PRN (23:45)
[2017-04-05] MEDS: DOCUSATE SODIUM 100 MG CAPSULE PO SCH ×3 (00:52→18:13)
[2017-04-05] MEDS: IBUPROFEN 800 MG TABLET PO SCH ×4 (00:52→21:36)
[2017-04-05] MEDS: FERROUS SULFATE 325 MG TABLET PO SCH ×3 (00:52→18:13)
[2017-04-05] MEDS: FAMOTIDINE 20 MG TABLET PO SCH ×3 (00:52→21:37)
[2017-04-05] MEDS: ACETAMINOPHEN WITH CODEINE #3 TABLET PO PRN ×4 (05:26→20:42)
[2017-04-05 07:51] LABS: HEMOGLOBIN 9.1 g/dL (12.0-15.5); HGB HCT DIFFERENCE -0.7; MEAN CORPUSCULAR HGB CONC 32.6 g/dL (32.0-36.0); MEAN CORPUSCULAR VOLUME 80 fl (80-97); RED BLOOD COUNT 3.51 10^6/uL (3.72-5.28); WHITE BLOOD COUNT 11.5 10^3/uL (4.0-10.5)
[2017-04-05] MEDS: PRENATAL VITAMIN W-O CA NO5/FE FUMARATE/FA CAPSULE PO SCH (10:05)
[2017-04-05] MEDS: SENNOSIDES/DOCUSATE 8.6-50 MG 1 EACH TABLET PO SCH (10:06)
--- NOTE | 2017-04-05 11:50 | PDOC PROGRESS REPORT ---
Subjective-OB Subjective: Post Delivery Day: 31 year old. Denies any needs at this time Sitting up in bed, plan to breast feed, baby coming back form [facility] today, no increase in bleeding, no c/o Physical Exam (OB) Vital Signs: Temp Pulse Resp BP Pulse Ox 98.3 F 81 18 147/78 H 100 04/05/17 08:20 04/05/17 08:20 04/05/17 08:20 04/05/17 08:20 04/05/17 08:20 Intake & Output 04/04/17 04/05/17 04/06/17 06:59 06:59 06:59 Intake Total 100 Output Total 1999 275 Balance -1900 -275 Weight 122.45 kg - PIH/Pre-Eclampsia DTR's: 1 + Clonus: Negative Headache: Present Epigastric Pain: No Visual Changes: No - Lochia Lochia Amount: Scant < 10 ml Lochia Color: Rubra/Red - Abdomen Description: Soft Hernia Present: No Fundal Description: Firm, Midline Fundal Height: u/u - u/2 Objective-Diagnostic Laboratory: 04/05/17 07:43 04/04/17 09:14 04/04/17 04/05/17 16:00 07:43 WBC 16.7 H 11.5 H RBC 4.02 3.51 L Hgb 10.3 L 9.1 L Hct 32.3 L 28.0 L MCV 80 80 MCH 25.5 L 26.0 L MCHC 31.8 L 32.6 RDW 16.5 H 16.0 H Plt Count 336 321 Seg Neutrophils % 90.5 H Lymphocytes % 6.5 L Monocytes % 2.4 L Eosinophils % 0.3 Basophils % 0.3 Absolute Neutrophils 15.2 H Absolute Lymphocytes 1.1 Absolute Monocytes 0.4 Absolute Eosinophils 0.0 Absolute Basophils 0.1 Assessment and Plan(PN) - Assessment and Plan (1) Breech presentation of fetus delivered Is this a current diagnosis for this admission?: Yes (2) Mental health impairment Is this a current diagnosis for this admission?: Yes (3) No care in current Qualifiers: Trimester: third trimester Qualified Code(s): O09.33 - Supervision of with insufficient care, third trimester Is this a current diagnosis for this admission?: Yes Plan: no care - Time Spent with Patient Time with patient: Less than 15 minutes Medications reviewed and adjusted accordingly: Yes - Disposition Anticipated Discharge: Home Within: within 24 hours
[2017-04-05 15:32] LABS: HEPATITIS C VIRUS AB <0.1 s/co ratio (0.0-0.9)
[2017-04-06] MEDS: IBUPROFEN 800 MG TABLET PO SCH ×2 (05:04→13:59)
[2017-04-06] MEDS: FAMOTIDINE 20 MG TABLET PO SCH (10:19)
[2017-04-06] MEDS: FERROUS SULFATE 325 MG TABLET PO SCH ×2 (10:19→18:54)
[2017-04-06] MEDS: PRENATAL VITAMIN W-O CA NO5/FE FUMARATE/FA CAPSULE PO SCH (10:19)
[2017-04-06] MEDS: SENNOSIDES/DOCUSATE 8.6-50 MG 1 EACH TABLET PO SCH (10:20)
[2017-04-06] MEDS: ACETAMINOPHEN WITH CODEINE #3 TABLET PO PRN (10:20)
[2017-04-06] MEDS: DOCUSATE SODIUM 100 MG CAPSULE PO SCH ×2 (10:20→18:54)
--- NOTE | 2017-04-06 11:56 | PDOC PROGRESS REPORT ---
Subjective-OB Subjective: Post Delivery Day: 2 31 year old. Denies any needs at this time, states lump on left breast. Physical Exam (OB) Vital Signs: Temp Pulse Resp BP Pulse Ox 97.9 F 78 16 135/88 H 100 04/06/17 07:48 04/06/17 07:48 04/06/17 07:48 04/06/17 07:48 04/06/17 07:48 Intake & Output 04/05/17 04/06/17 04/07/17 06:59 06:59 06:59 Intake Total 100 500 Output Total 1999 275 Balance -1900 225 Weight 122.45 kg - PIH/Pre-Eclampsia DTR's: 1 + Clonus: Negative Headache: Absent Epigastric Pain: No Visual Changes: No - Lochia Lochia Amount: Scant < 10 ml Lochia Color: Rubra/Red - Abdomen Description: Tender, Soft Hernia Present: No Fundal Description: Firm, Midline Fundal Height: u/u - u/2 - Skin Skin note:: left breast enlarged gland above nipple, rx for keflex and rev. warning sign Objective-Diagnostic Laboratory: 04/05/17 07:43 04/04/17 09:14 04/04/17 08:50 Vaginal/Anorectal Group B Streptococcus Culture - Final GROUP B BETA HEMOLYTIC STREPTOCOCCUS RECOVERED Assessment and Plan(PN) - Assessment and Plan (1) Acute blood loss anemia Is this a current diagnosis for this admission?: Yes Plan: ferrous sulfate increase dietary iron (2) Breech presentation of fetus delivered Is this a current diagnosis for this admission?: Yes Plan: routine pp care (3) Mental health impairment Is this a current diagnosis for this admission?: Yes Plan: discharger kit planner (4) No care in current Qualifiers: Trimester: third trimester Qualified Code(s): O09.33 - Supervision of with insufficient care, third trimester Is this a current diagnosis for this admission?: Yes Plan: discharge planning (5) Vaginal delivery Is this a current diagnosis for this admission?: Yes Plan: routine pp care - Time Spent with Patient Time with patient: Less than 15 minutes Critical Time spent with patient: Less than 15 minutes Medications reviewed and adjusted accordingly: Yes - Disposition Anticipated Discharge: Home Within: within 24 hours - late discharge home tonight, nesting room as she would like to breastfeed
--- NOTE | 2017-04-06 12:02 | PDOC DISCHARGE SUMMARY ---
Final Diagnosis Discharge Date: 04/06/17 - Final Diagnosis (1) Acute blood loss anemia Is this a current diagnosis for this admission?: Yes (2) Breech presentation of fetus delivered Is this a current diagnosis for this admission?: Yes (3) Mental health impairment Is this a current diagnosis for this admission?: Yes (4) No care in current Is this a current diagnosis for this admission?: Yes (5) Vaginal delivery Is this a current diagnosis for this admission?: Yes Discharge Data - Discharge Medication Home Medications: Vit#96/Ferrous Fum/FA [ Tablet] 1 tab PO DAILY 01/28/17 Cephalexin Monohydrate [Keflex 500 mg Capsule] 500 mg PO QID #28 capsule Docusate Sodium [Colace 100 mg Capsule] 100 mg PO BID #60 capsule 04/06/17 Ferrous Sulfate [Feosol 325 mg Tablet] 325 mg PO BID #60 tablet 04/06/17 Ibuprofen [Motrin 800 mg Tablet] 800 mg PO Q8 #60 tablet 04/06/17 Gestational Age: 39.2 Reason(s) for Admission: Onset of Labor - gbs unk Procedures: NST Intrapartum Procedure(s): Forceps-to Extract Breech - Data Baby 1 Male at 1 minute: 1 at 5 minutes: 5 at 10 minutes: 7 Weight: 2670 kg Home with Mother: No Complications: Yes - breech ext. need resuc, transfer to special care hospital - Diagnosis Test Laboratory: Temp Pulse Resp BP Pulse Ox 97.9 F 78 16 135/88 H 100 04/06/17 07:48 04/06/17 07:48 04/06/17 07:48 04/06/17 07:48 04/06/17 07:48 04/04/17 04/04/17 04/04/17 07:25 09:14 16:00 RBC 4.31 4.02 Hgb 11.1 L 10.3 L Hct 34.2 L 32.3 L Urine Opiates Screen NEGATIVE 04/05/17 07:43 RBC 3.51 L Hgb 9.1 L Hct 28.0 L Urine Opiates Screen - Discharge information/Instructions Discharge Activity: Activity As Tolerated, Pelvic Rest, No tub bath Discharge Diet: Regular Disposition: HOME, SELF-CARE Follow up with: [facility] in: 1, Weeks - needs week follow up
[2017-04-06 17:20] VITALS: BP 136/80
== END 2017-04-06 19:30 | disposition home or self-care (01) | DRG 775 ==
LOC: LC 07:16 → LR 12:06 → 2N 21:35
PROVIDERS: ADMIT Obstetrics & Gynecology; ATTEND Obstetrics & Gynecology
PROC: 10D07Z3 Extraction of Products of Conception, Low Forceps, Via Natural or Artificial Opening (ICD-10-PCS; principal; 2017-04-04)
PROC: 0UCG7ZZ Extirpation of Matter from Vagina, Via Natural or Artificial Opening (ICD-10-PCS; 2017-04-04)
PROC: 4A1HXCZ Monitoring of Products of Conception, Cardiac Rate, External Approach (ICD-10-PCS; 2017-04-04)
DX: O32.8XX0 Maternal care for other malpresentation of fetus, not applicable or unspecified (principal); D62 Acute posthemorrhagic anemia; Z68.41 Body mass index [BMI] 40.0-44.9, adult; Z37.0 Single live birth; O99.02 Anemia complicating childbirth; F79 Unspecified intellectual disabilities; O75.89 Other specified complications of labor and delivery; O62.3 Precipitate labor; O69.1XX0 Labor and delivery complicated by cord around neck, with compression, not applicable or unspecified; O69.0XX0 Labor and delivery complicated by prolapse of cord, not applicable or unspecified; O99.214 Obesity complicating childbirth; E66.09 Other obesity due to excess calories; Z87.891 Personal history of nicotine dependence; Z3A.39 39 weeks gestation of pregnancy
CPT/HCPCS: 36415; 80053; 80307; 81005; 82570; 83615; 84156; 84550; 85025; 85027; 86592; 86701; 86762; 86803; 86804; 86850; 86900; 86901; 87077; 87081; 87340; 87491; 87591; 88307; J0131; J0690; J1170; J2250; J2300; J2590; J2704; J3010; J3490

== ENCOUNTER 2017-07-31 12:18 | Emergency (ER) | payer MEDICAID ==
--- NOTE | 2017-07-31 13:30 | ER Document Report ---
ED GI/ - General Chief Complaint: Vag Bleeding, +preg <12wks Stated Complaint: VAGINAL CRAMPING AND BLEEDING Time Seen by Provider: 07/31/17 13:10 Mode of Arrival: Ambulatory Information source: Patient TRAVEL OUTSIDE OF THE [place] IN LAST 30 DAYS: No - HPI Patient complains to provider of: Pelvic pain, Vaginal bleeding Onset: This morning Timing/Duration: Sudden Quality of pain: Cramping Severity at maximum: Moderate Severity in ED: Mild Vaginal bleeding (Compared to normal period): Similar Menstrual period history: LMP: 05/2017 : 7 Para: 4 Abortions: 2 Sexual history: Active Associated symptoms: Nausea. denies: Chest pain, Shortness of breath, Vomiting Exacerbated by: Denies Relieved by: Denies Similar symptoms previously: No Recently seen / treated by doctor: No - Related Data Allergies/Adverse Reactions: No Known Allergies Allergy (Verified 07/31/17 12:21) Home Medications: Current Home Medications No Home Medications 07/31/17 [History] Past Medical History - General Information source: Patient - Social History Smoking Status: Current Every Day Smoker Smoking Education Provided: No Frequency of alcohol use: None Drug Abuse: None Lives with: Spouse/Significant other Family History: Reviewed & Not Pertinent Patient has suicidal ideation: No Patient has homicidal ideation: No - Past Medical History Cardiac Medical History: Reports: Hx Hypertension - preclampsia Pulmonary Medical History: Reports: None Denies: Hx Tuberculosis EENT Medical History: Reports: None Neurological Medical History: Reports: None Endocrine Medical History: Reports: Hx Diabetes Mellitus Type 2 - gestational Renal/ Medical History: Denies: Hx Peritoneal Dialysis Malignancy Medical History: Reports: None GI Medical History: Reports: None Musculoskeltal Medical History: Reports None Skin Medical History: Reports Hx MRSA Psychiatric Medical History: Reports: None Surgical Hx: Negative - Immunizations Immunizations up to date: Yes Hx Diphtheria, Pertussis, Tetanus Vaccination: Yes Review of Systems - Review of Systems Constitutional: No symptoms reported EENT: No symptoms reported Cardiovascular: No symptoms reported. denies: Chest pain, Dizziness, Lightheaded, Edema Respiratory: No symptoms reported Gastrointestinal: No symptoms reported Genitourinary: No symptoms reported Female Genitourinary: See HPI Musculoskeletal: No symptoms reported Skin: No symptoms reported Neurological/Psychological: No symptoms reported Physical Exam - Vital signs Vitals: Temp Pulse Resp BP Pulse Ox 98.4 F 116 H 18 149/103 H 99 07/31/17 12:34 07/31/17 12:34 07/31/17 12:34 07/31/17 12:34 07/31/17 12:34 Interpretation: Hypertensive, Tachycardic. No: Hypoxic, Tachypneic - General General appearance: Appears well, Alert In distress: None - HEENT Head: Normocephalic Eyes: Normal Conjunctiva: Normal Ears: Normal Nasal: Normal Mouth/Lips: Normal Mucous membranes: Normal Pharynx: Normal Neck: Normal - Respiratory Respiratory status: No respiratory distress Breath sounds: Normal - Cardiovascular Rhythm: Regular - Abdominal Inspection: Normal Distension: No distension - Extremities General upper extremity: Normal inspection General lower extremity: Normal inspection. No: Tender - Neurological Neuro grossly intact: Yes Cognition: Normal Orientation: AAOx4 - Psychological Associated symptoms: Normal affect, Normal mood - Skin Skin Temperature: Warm Skin Moisture: Dry Skin Color: Normal Skin Turgor: Elastic Course - Vital Signs Vital signs: Temp Pulse Resp BP Pulse Ox 98.4 F 116 H 18 149/103 H 99 07/31/17 12:34 07/31/17 12:34 07/31/17 12:34 07/31/17 12:34 07/31/17 12:34 - Laboratory Result Diagrams: 07/31/17 14:00 07/31/17 14:00 Laboratory results interpreted by me: 07/31/17 07/31/17 07/31/17 14:00 14:00 14:14 WBC 10.9 H Hgb 10.1 L Hct 32.0 L MCV 63 L MCH 19.8 L MCHC 31.5 L RDW 25.9 H Absolute Neutrophils 8.5 H Potassium 3.4 L Beta HCG, Quant 531733.00 H Urine Protein 100 H Urine Ketones 80 H Urine Bilirubin SMALL H Urine Urobilinogen 4.0 H Urine Ascorbic Acid 20 H Blood type is A+, program not indicated. - Diagnostic Test Radiology reviewed: Image reviewed, Reports reviewed - Consults DR. TAVERAS Time consulted: 16:20 Consulted provider: follow-up in office Discharge - Discharge Clinical Impression: Vaginal bleeding in patient at less than 20 weeks gestation Condition: Stable Disposition: HOME, SELF-CARE Instructions: Bleeding During Early ([facility]), Threatened Miscarriage ( [facility]) Additional Instructions: STRICT BED REST WITH FEET ELEVATED, NO SEX, NO TAMPONS, NO DOUCHES. FOLLOW UP TOMORROW (MONDAY) WITH [facility], CALL AFTER 8: 30 A.M. FOR APPOINTMENT TIME. RETURN TO E.R. PROMPTLY IF YOU GET WORSE IN ANY WAY, ANY TIME. Referrals: CARLOS TAVERAS MD [[facility]] - Follow up tomorrow
[2017-07-31 14:05] LABS: ABSOLUTE BASOPHILS # (AUTO) 0.1 10^3/uL (0.0-0.2); ABSOLUTE EOSINOPHILS # (AUTO) 0.1 10^3/uL (0.0-0.6); ABSOLUTE LYMPHOCYTES (AUTO) 1.8 10^3/uL (0.5-4.7); ABSOLUTE MONOCYTES (AUTO) 0.5 10^3/uL (0.1-1.4); ABSOLUTE NEUT (AUTO) 8.5 10^3/uL (1.7-8.2); BASOPHILS % (AUTO) 0.8 % (0-2); EOSINOPHILS % (AUTO) 0.5 % (0-6); HEMOGLOBIN 10.1 g/dL (12.0-15.5); HGB HCT DIFFERENCE -1.7; LYMPHOCYTES % (AUTO) 16.2 % (13-45); MEAN CORPUSCULAR HEMOGLOBIN 19.8 pg (27.0-33.4); MEAN CORPUSCULAR HGB CONC 31.5 g/dL (32.0-36.0); MONOCYTES % (AUTO) 4.9 % (3-13); RED CELL DISTRIBUTION WIDTH 25.9 % (11.5-14.0); SEGMENTED NEUTROPHILS % (AUTO) 77.6 % (42-78); WHITE BLOOD COUNT 10.9 10^3/uL (4.0-10.5)
[2017-07-31 14:08] LABS: MEAN CORPUSCULAR VOLUME 63 fl (80-97)
[2017-07-31 14:24] LABS: ALANINE AMINOTRANSFERASE 44 U/L (9-52); ALBUMIN 4.1 g/dL (3.5-5.0); ALKALINE PHOSPHATASE 74 U/L (38-126); ANION GAP 14 (5-19); ASPARTATE AMINO TRANSFERASE 19 U/L (14-36); BILIRUBIN,DIRECT 0.2 mg/dL (0.0-0.4); BILIRUBIN,TOTAL 0.7 mg/dL (0.2-1.3); BLOOD UREA NITROGEN 7 mg/dL (7-20); CALCIUM 9.6 mg/dL (8.4-10.2); CARBON DIOXIDE 24 mmol/L (22-30); CHLORIDE 103 mmol/L (98-107); CREATININE RESULT 0.72 mg/dL (0.52-1.25); GLUCOSE 78 mg/dL (75-110); POTASSIUM 3.4 mmol/L (3.6-5.0); SODIUM 141.3 mmol/L (137-145); TOTAL PROTEIN 7.5 g/dL (6.3-8.2)
[2017-07-31 14:30] LABS: ANISOCYTOSIS 3+; HYPOCHROMASIA 3+; MICROCYTOSIS 3+; OVALOCYTES 1+; POIKILOCYTOSIS 1+
[2017-07-31 14:31] LABS: ROULEAUX SLIGHT; TARGET CELLS SLIGHT
[2017-07-31 14:37] LABS: APPEARANCE,URINE SLIGHTLY-CLOUDY; BILIRUBIN,URINE SMALL (NEGATIVE); GLUCOSE, URINE NEGATIVE (NEGATIVE); KETONES,URINE 80 mg/dL (NEGATIVE); LEUKOCYTE ESTERASE,URINE NEGATIVE (NEGATIVE); NITRITE,URINE NEGATIVE (NEGATIVE); PROTEIN,URINE 100 mg/dL (NEGATIVE); URINE SPECIFIC GRAVITY 1.033
--- NOTE | 2017-07-31 16:00 | RADIOLOGY REPORT (SQ) ---
EXAM DESCRIPTION: U/S OB TRANSVAGINAL W/O DOP COMPLETED DATE/TIME: 07/31/2017 3:50 pm REASON FOR STUDY: PELVIC PAIN, BLEEDING, LMP 05/2017 COMPARISON: None. TECHNIQUE: Transvaginal static and realtime grayscale images acquired of the pelvis. Additional bong cted spectral and color Doppler images recorded. All images stored on PACs. bHCG: Not applicable. LIMITATIONS: None. FINDINGS: FETUS: EGA: 10 week 5 day. ELIANA: 02/21/2018. EFW: Not applicable. FHR: 180 beats per minute. BELKIS: Adequate amount. PLACENTA: Early placental development. Currently has the appearance of placenta previa. CERVICAL LENGTH: 2.7 cm. Closed. UTERUS: No masses. RIGHT ADNEXA: Ovary not identified. No adnexal free fluid. No adnexal masses. LEFT ADNEXA: Ovary not identified. No adnexal free fluid. No adnexal masses. FREE FLUID: None. OTHER: No other significant finding. IMPRESSION: LIVING INTRAUTERINE . ESTIMATED GESTATIONAL AGE:10 WEEK 5 DAY. EARLY PLACENTAL DEVELOPMENT. CURRENTLY THE PLACENTA IS OVERLYING THE INTERNAL CERVICAL OS CONSISTENT WITH PREVIA. RECOMMEND FOLLOW-UP ULTRASOUND LATER DURING TO DETERMINE IF FINDINGS OF PREV IA RESOLVE THE PLACENTA FURTHER DEVELOPS. Trimester of : First trimester - 0 to 13 weeks. TECHNICAL DOCUMENTATION: JOB ID: [id number] Contactually- All Rights Reserved
[2017-07-31 16:42] VITALS: BP 136/78
[2017-08-01 11:04] LABS: PATH REVIEW PATHOLOGIST REVIEWED
== END 2017-07-31 16:43 | disposition home or self-care (01) ==
LOC: ER 12:18
DX: O20.9 Hemorrhage in early pregnancy, unspecified (principal); O99.331 Smoking (tobacco) complicating pregnancy, first trimester
CPT/HCPCS: 36415; 76817; 80053; 81001; 84702; 85025; 86900; 86901; 99284

== ENCOUNTER 2017-08-28 15:55 | Emergency (ER) | payer MEDICAID ==
--- NOTE | 2017-08-28 16:47 | ER Document Report ---
ED Medical Screen (RME) - General Chief Complaint: Vaginal Bleeding Stated Complaint: VAGINAL BLEEDING, BACK PAIN Time Seen by Provider: 08/28/17 16:46 TRAVEL OUTSIDE OF THE [place] IN LAST 30 DAYS: No - HPI Notes: 08/28/17 16:48 Patient is a 31-year-old female with 2 abortions who presents the ED approximately 15 weeks complaining of continued vaginal bleeding, lower pelvic cramping, and lower back pain. Patient states that she has had intermittent bleeding since her visit on . Patient has not been evaluated by an VALIDATION TECHNICIAN as of yet. Patient states that she has gone through about 5 pads since this morning around 8 AM. Patient states that the bleeding worsened today. She is still eating and drinking without any difficulties otherwise. She is urinating normally and having normal bowel movements. No other concerns or complaints. Denies any headache, fever, neck pain, URI, sore throat, chest pain, palpitations, syncope, cough, shortness of breath, wheeze, dyspnea, nausea/vomiting/diarrhea, urinary retention, dysuria, hematuria, loss of control of bowel or bladder, numbness/tingling, saddle anesthesia, muscle paralysis/weakness, or rash. I have treated and performed a rapid initial assessment of this patient. A comprehensive ED assessment and evaluation of the patient, analysis of test results and completion of medical decision making process will be conducted by additional ED providers. - Related Data Allergies/Adverse Reactions: No Known Allergies Allergy (Verified 07/31/17 12:21) Past Medical History - Past Medical History Cardiac Medical History: Reports: Hx Hypertension - preclampsia Pulmonary Medical History: Denies: Hx Tuberculosis Endocrine Medical History: Reports: Hx Diabetes Mellitus Type 2 - gestational Renal/ Medical History: Denies: Hx Peritoneal Dialysis Skin Medical History: Reports Hx MRSA - Immunizations Immunizations up to date: Yes Hx Diphtheria, Pertussis, Tetanus Vaccination: Yes Physical Exam - Vital signs Vitals: Temp Pulse Resp BP Pulse Ox 98.5 F 121 H 20 147/98 H 100 08/28/17 15:59 08/28/17 15:59 08/28/17 15:59 08/28/17 15:59 08/28/17 15:59 - Respiratory Respiratory status: No respiratory distress Breath sounds: Normal - Cardiovascular Rhythm: Regular Heart sounds: Normal auscultation Course - Vital Signs Vital signs: Temp Pulse Resp BP Pulse Ox 98.5 F 121 H 20 147/98 H 100 08/28/17 15:59 08/28/17 15:59 08/28/17 15:59 08/28/17 15:59 08/28/17 15:59
[2017-08-28] MEDS ORDERED: NORMAL SALINE 1000 ML 1,000 ML IV ONE (16:50)
[2017-08-28 17:45] LABS: ABSOLUTE BASOPHILS # (AUTO) 0.1 10^3/uL (0.0-0.2); ABSOLUTE EOSINOPHILS # (AUTO) 0.1 10^3/uL (0.0-0.6); ABSOLUTE LYMPHOCYTES (AUTO) 2.5 10^3/uL (0.5-4.7); ABSOLUTE MONOCYTES (AUTO) 0.5 10^3/uL (0.1-1.4); ABSOLUTE NEUT (AUTO) 7.5 10^3/uL (1.7-8.2); APPEARANCE,URINE CLOUDY; BASOPHILS % (AUTO) 0.6 % (0-2); BILIRUBIN,URINE SMALL (NEGATIVE); GLUCOSE, URINE NEGATIVE (NEGATIVE); HEMATOCRIT 33.2 % (36.0-47.0); HEMOGLOBIN 10.5 g/dL (12.0-15.5); KETONES,URINE NEGATIVE (NEGATIVE); LEUKOCYTE ESTERASE,URINE MODERATE (NEGATIVE); LYMPHOCYTES % (AUTO) 23.5 % (13-45); MEAN CORPUSCULAR HEMOGLOBIN 20.9 pg (27.0-33.4); MEAN CORPUSCULAR HGB CONC 31.8 g/dL (32.0-36.0); MEAN CORPUSCULAR VOLUME 66 fl (80-97); MONOCYTES % (AUTO) 4.7 % (3-13); NITRITE,URINE NEGATIVE (NEGATIVE); PLATELET COUNT 533 10^3/uL (150-450); PROTEIN,URINE 30 mg/dL (NEGATIVE); RED BLOOD COUNT 5.05 10^6/uL (3.72-5.28); RED CELL DISTRIBUTION WIDTH 27.2 % (11.5-14.0); SEGMENTED NEUTROPHILS % (AUTO) 70.2 % (42-78); TOTAL CELLS COUNTED % (AUTO) 100 %; URINE SPECIFIC GRAVITY 1.033; WHITE BLOOD COUNT 10.7 10^3/uL (4.0-10.5)
[2017-08-28 17:46] LABS: COLOR,URINE DARK YELLOW
[2017-08-28 18:02] LABS: ALANINE AMINOTRANSFERASE 25 U/L (9-52); ALBUMIN 3.8 g/dL (3.5-5.0); ALKALINE PHOSPHATASE 72 U/L (38-126); ANION GAP 9 (5-19); ASPARTATE AMINO TRANSFERASE 18 U/L (14-36); BILIRUBIN,DIRECT 0.2 mg/dL (0.0-0.4); BILIRUBIN,TOTAL 0.4 mg/dL (0.2-1.3); BLOOD UREA NITROGEN 7 mg/dL (7-20); CALCIUM 9.6 mg/dL (8.4-10.2); CARBON DIOXIDE 22 mmol/L (22-30); CHLORIDE 106 mmol/L (98-107); GLUCOSE 87 mg/dL (75-110); POTASSIUM 3.7 mmol/L (3.6-5.0); SODIUM 137.2 mmol/L (137-145); TOTAL PROTEIN 7.2 g/dL (6.3-8.2)
[2017-08-28 18:10] LABS: ANISOCYTOSIS 2+; HYPOCHROMASIA 2+; POIKILOCYTOSIS 1+; TOXIC GRANULATION SLIGHT
[2017-08-28 18:11] LABS: OVALOCYTES SLIGHT; PLATELET COMMENT INCREASED; TARGET CELLS SLIGHT
--- NOTE | 2017-08-28 21:41 | RADIOLOGY REPORT (SQ) ---
EXAM DESCRIPTION: U/S OB 14+ TRNABD 1GES W/O DOP COMPLETED DATE/TIME: 08/28/2017 9:30 pm REASON FOR STUDY: and bleeding COMPARISON: 07/31/2017. TECHNIQUE: Static and Dynamic grayscale imaging performed of gravid uterus using transabdominal appr oach. Additional selected color Doppler and spectral images recorded. All stored on PACS. LIMITATIONS: Markedly limited study due to the patient's obesity. FINDINGS: EGA: 15 week 2 day. ELIANA: 02/17/2018. BELKIS: Largest pocket 4.4 cm. PLACENTA: Posterior. Placenta previa is present. PRESENTATION: Variable. ANATOMY: HEART RATE: 165 beats per minute. FOUR CHAMBER HEART: Not adequately visualized. THREE VESSEL CORD: Not adequately visualized. CORD INSERTION: Visualized. KIDNEYS AND BLADDER: Not adequately visualized. STOMACH: Not adequately visualized. SPINE: Not adequately visualized. BRAIN AND LATERAL VENTRICLES: Not adequately visualize. OTHER: No other significant finding. MATERNAL ADNEXA: Maternal ovaries not visualized. CERVICAL LENGTH: Not adequately visualized. OTHER: No other significant finding. IMPRESSION: LIVING INTRAUTERINE . ESTIMATED GESTATIONAL AGE 15 WEEK 2 DAY. MARKEDLY LIMITED STUDY. PLACENTA PREVIA IS PRESENT. Trimester of : Second trimester - 13 weeks 1 day to 27 weeks 6 days. TECHNICAL DOCUMENTATION: JOB ID: [id number] [employer]- All Rights Reserved
--- NOTE | 2017-08-28 21:51 | ER Document Report ---
ED General - General Chief Complaint: Vaginal Bleeding Stated Complaint: VAGINAL BLEEDING, BACK PAIN Time Seen by Provider: 08/28/17 16:46 Notes: Patient is a 31-year-old female at 15 weeks by LMP, has not established OB /DOOR HANGER follow-up who presents with ongoing vaginal bleeding. Patient was first seen in the emergency department for this complaint on July 31, 2017. She states that since that time she has continued to have bleeding when she wipes but denies ever saturating through a pad. Nothing seems to improve or worsen her bleeding. She does note an intermittent dull, aching, cramping pain to her lower abdomen. Denies a history of similar symptoms during her prior pregnancies. She denies any syncope or lightheadedness. No abdominal trauma. No fever or constitutional symptoms. TRAVEL OUTSIDE OF THE [place] IN LAST 30 DAYS: No - Related Data Allergies/Adverse Reactions: No Known Allergies Allergy (Verified 07/31/17 12:21) Past Medical History - General Information source: Patient - Social History Smoking Status: Former Smoker Frequency of alcohol use: None Drug Abuse: None Lives with: Family Family History: Reviewed & Not Pertinent Patient has suicidal ideation: No Patient has homicidal ideation: No - Past Medical History Cardiac Medical History: Reports: Hx Hypertension - preclampsia Pulmonary Medical History: Denies: Hx Tuberculosis Endocrine Medical History: Reports: Hx Diabetes Mellitus Type 2 - gestational Renal/ Medical History: Denies: Hx Peritoneal Dialysis Skin Medical History: Reports Hx MRSA - Immunizations Immunizations up to date: Yes Hx Diphtheria, Pertussis, Tetanus Vaccination: Yes Review of Systems - Review of Systems Notes: Constitutional: Negative for fever. HENT: Negative for sore throat. Eyes: Negative for visual changes. Cardiovascular: Negative for chest pain. Respiratory: Negative for shortness of breath. Gastrointestinal: Positive for abdominal cramping Genitourinary: Positive for vaginal bleeding Musculoskeletal: Negative for back pain. Skin: Negative for rash. Neurological: Negative for headaches, weakness or numbness. 10 point ROS negative except as marked above and in HPI. Physical Exam - Vital signs Vitals: Temp Pulse Resp BP Pulse Ox 98.5 F 121 H 20 147/98 H 100 08/28/17 15:59 08/28/17 15:59 08/28/17 15:59 08/28/17 15:59 08/28/17 15:59 Interpretation: Tachycardic Notes: PHYSICAL EXAMINATION: GENERAL: Well-appearing, well-nourished and in no acute distress. HEAD: Atraumatic, normocephalic. EYES: Pupils equal round and reactive to light, extraocular movements intact, sclera anicteric, conjunctiva are normal. ENT: nares patent, oropharynx clear without exudates. Moist mucous membranes. NECK: Normal range of motion, supple without lymphadenopathy LUNGS: Breath sounds clear to auscultation bilaterally and equal. No wheezes rales or rhonchi. HEART: Regular rate and rhythm without murmurs ABDOMEN: Soft, nontender, normoactive bowel sounds. No guarding, no rebound. No masses appreciated. EXTREMITIES: Normal range of motion, no pitting or edema. No cyanosis. NEUROLOGICAL: No focal neurological deficits. Moves all extremities spontaneously and on command. PSYCH: Normal mood, normal affect. SKIN: Warm, Dry, normal turgor, no rashes or lesions noted. Course - Re-evaluation Re-evalutation: 08/28/17 21:49 Patient presents with ongoing vaginal bleeding in the setting of a central previa confirmed an ultrasound with a viable intrauterine . Her hemoglobin is improved from 07/31/17. Her abdominal exam is otherwise benign. Pelvic exam deferred given placenta previa. I have provided the patient a copy of her ultrasound report and emphasized with her the critical importance that she follow up with health department given her very high risk . She is Rh+. No indication for RhoGam. At this time will discharge with return precautions and follow-up recommendations. Verbal discharge instructions given a the bedside and opportunity for questions given. Medication warnings reviewed. Patient is in agreement with this plan and has verbalized understanding of return precautions and the need for primary care follow-up in the next 24-72 hours. I also discussed this case with the attending QUOTATION CHECKER on- call Dr. Perdomo who recommended health department follow-up. - Vital Signs Vital signs: Temp Pulse Resp BP Pulse Ox 98.7 F 78 18 155/87 H 100 08/28/17 18:14 08/28/17 21:53 08/28/17 21:53 08/28/17 21:53 08/28/17 21:53 - Laboratory Result Diagrams: 08/28/17 17:24 08/28/17 17:24 Laboratory results interpreted by me: 08/28/17 08/28/17 08/28/17 17:24 17:24 17:24 WBC 10.7 H Hgb 10.5 L Hct 33.2 L MCV 66 L MCH 20.9 L MCHC 31.8 L RDW 27.2 H Plt Count 533 H Beta HCG, Quant 93806.00 H Urine Protein 30 H Urine Blood MODERATE H Urine Bilirubin SMALL H Urine Urobilinogen 4.0 H Ur Leukocyte Esterase MODERATE H Urine Ascorbic Acid 40 H - Diagnostic Test Radiology reviewed: Reports reviewed Discharge - Discharge Clinical Impression: Vaginal bleeding during , antepartum Placenta previa Qualifiers: Trimester: second trimester Qualified Code(s): O44.02 - Complete placenta previa NOS or without hemorrhage, second trimester No care in current Qualifiers: Trimester: second trimester Qualified Code(s): O09.32 - Supervision of with insufficient care, second trimester Condition: Good Disposition: HOME, SELF-CARE Additional Instructions: You have a placenta that is sitting in front of your cervix. The skull placenta previa and is why you are bleeding. You need to follow-up with health department as we discussed. It is very important that she get OB follow-up as this is an extremely high risk . Please return if you develop severe abdominal pain, bleeding that goes through more than 2 pads for more than 2 hours, pass out, or have any other symptoms that are concerning to you. Please follow-up closely with your OBGYN regarding todays visit.
[2017-08-28 21:54] VITALS: BP 155/87
== END 2017-08-28 22:05 | disposition home or self-care (01) ==
LOC: ER 15:55
DX: O44.12 Complete placenta previa with hemorrhage, second trimester (principal); O26.892 Other specified pregnancy related conditions, second trimester; R10.30 Lower abdominal pain, unspecified; O09.32 Supervision of pregnancy with insufficient antenatal care, second trimester; Z3A.15 15 weeks gestation of pregnancy; Z87.891 Personal history of nicotine dependence
CPT/HCPCS: 99284; 96360; 36415; 87086; 84702; 85025; 87088; 80053; 81001; 76805; J7030

== ENCOUNTER 2017-11-26 17:56 | Emergency (ER) | payer MEDICAID ==
[2017-11-26 18:15] VITALS: BP 143/73
[2017-11-26] MEDS ORDERED: LIDOCAINE 1% INJ-PF (10 MG/ML) 30 ML SDV INJ ONE (19:34)
--- NOTE | 2017-11-26 19:35 | ER Document Report ---
HPI - HPI Pain Level: 4 Context: Patient is a 30 week 32-year-old female presents emergency department the chief complaint of abscess in her right axilla. Patient states it has been there for a closer to a month but increased in size and started hurting 3 days ago. She denies any active drainage, redness or surrounding swelling, fevers or chills. She denies any previous history of abscesses. Denies any previous history of MRSA. - CONSTITUTIONAL Constitutional: DENIES: Fever, Chills - EENT EENT: DENIES: Sore Throat, Ear Pain, Eye problems - NEURO Neurology: DENIES: Headache, Weakness, Vision blurred, Dizzinesss / Vertigo - CARDIOVASCULAR Cardiovascular: DENIES: Chest pain - RESPIRATORY Respiratory: DENIES: Trouble Breathing, Coughing - GASTROINTESTINAL Gastrointestinal: DENIES: Abdominal Pain, Black / Bloody Stools - URINARY Urinary: DENIES: Dysuria, Urgency, Frequency - REPRODUCTIVE Reproductive: REPORTS: : - MUSCULOSKELETAL Musculoskeletal: DENIES: Extremity pain Past Medical History - Social History Smoking Status: Unknown if Ever Smoked Family History: Reviewed & Not Pertinent Patient has suicidal ideation: No Patient has homicidal ideation: No - Past Medical History Cardiac Medical History: Reports: Hx Hypertension - preclampsia Pulmonary Medical History: Denies: Hx Tuberculosis Endocrine Medical History: Reports: Hx Diabetes Mellitus Type 2 - gestational Renal/ Medical History: Denies: Hx Peritoneal Dialysis Skin Medical History: Reports Hx MRSA - Immunizations Immunizations up to date: Yes Hx Diphtheria, Pertussis, Tetanus Vaccination: Yes Vertical Provider Document - CONSTITUTIONAL Agree With Documented VS: Yes Notes: PHYSICAL EXAM GENERAL: Alert, interacts well. HEAD: Normocephalic, atraumatic. EXTREMITIES: Moves all 4 extremities spontaneously. No edema, radial and dorsalis pedis pulses 2/4 bilaterally. No cyanosis. NEUROLOGICAL: Alert and oriented x4. Normal speech. PSYCH: Normal affect, normal mood. SKIN: Warm, dry, normal turgor. Right axilla with a 3 cm in diameter with central fluctuance. No surrounding erythema, induration. - INFECTION CONTROL TRAVEL OUTSIDE OF THE [place] IN LAST 30 DAYS: No Course - Re-evaluation Re-evalutation: 11/26/17 20:39 Patient is a 30 week 32-year-old female is hemodynamically stable, no acute distress afebrile. Wound was I&D for purulent material. Wound culture sent. Patient stable for discharge home - Vital Signs Vital signs: Temp Pulse Resp BP Pulse Ox 98.0 F 99 16 143/73 H 100 11/26/17 18:14 11/26/17 18:14 11/26/17 18:14 11/26/17 18:14 11/26/17 18:14 Procedures - Incision and Drainage Right Arm Type: Simple Anesthetic type: 1% Lidocaine mL's of anesthetic: 10 Blade size: 11 I&D procedure: Betadine prep applied Incision Method: Incision made by scalpel Amount/type of drainage: 10cc purulent material Discharge - Discharge Clinical Impression: Abscess Condition: Good Disposition: HOME, SELF-CARE Instructions: Abscess ([facility]), Post Incision and Drainage Referrals: RISA PATEL MD [Primary Care Provider] - Follow up as needed
== END 2017-11-26 20:57 | disposition home or self-care (01) ==
LOC: ER 17:56
DX: O99.713 Diseases of the skin and subcutaneous tissue complicating pregnancy, third trimester (principal); Z3A.30 30 weeks gestation of pregnancy; L02.411 Cutaneous abscess of right axilla; Z86.14 Personal history of Methicillin resistant Staphylococcus aureus infection
CPT/HCPCS: 99283; 87070; 87205; 87075; 87077; 10060; J3490

== ENCOUNTER 2018-08-28 23:47 | Emergency (ER) | payer MEDICAID ==
[2018-08-29] MEDS ORDERED: ACETAMINOPHEN 325 MG TABLET PO ONE (07:14)
--- NOTE | 2018-08-29 07:20 | ER Document Report ---
ED General - General Chief Complaint: Headache Stated Complaint: HEADACHE Time Seen by Provider: 08/29/18 07:13 Primary Care Provider: RISA PATEL MD [Primary Care Provider] - Follow up as needed TRAVEL OUTSIDE OF THE [place] IN LAST 30 DAYS: No - HPI Notes: Patient is a 32-year-old female that presents to the emergency department for chief complaint of headache. Patient reports intermittent headaches over the last 3-4 weeks. She states are usually located on the right side but sometimes they are on the left. Her current headache started last night. She describes it as a throbbing sensation in the right side of her head. She denies associated photophobia, phonophobia, vision changes, numbness, weakness, nausea and vomiting. She denies any fevers, chills and neck pain. She states she has had headaches in the past but this is more severe. She states she took a Tylenol one time but it did not help so she stopped taking any medications. She states she does not like to take medications. She has not seen a specialist for her headaches in the past. She denies head injury. Past Medical History: Negative Past Surgical History: Social History: Denies drug use. Daily tobacco. Denies alcohol. Family History: Reviewed and noncontributory for presenting illness Allergies: Reviewed, see documented allergy list. REVIEW OF SYSTEMS: CONSTITUTIONAL : No fever No chills No diaphoresis No recent illness EENT: No vision changes No congestion No sore throat CARDIOVASCULAR: No chest pain No palpitations RESPIRATORY: No shortness of breath No cough No difficulty breathing GASTROINTESTINAL: No abdominal pain No nausea No vomiting No diarrhea GENITOURINARY: No dysuria No hematuria No difficulty urinating MUSCULOSKELETAL: No back pain No leg pain No arm pain SKIN: No rashes No lesions LYMPHATIC: No swollen, enlarged glands. NEUROLOGICAL: No lightheadedness headache No weakness No paresthesias PSYCHIATRIC: No anxiety No depression PHYSICAL EXAMINATION: Vital signs reviewed, nursing noted reviewed. GENERAL: Well-appearing, well-nourished and in no acute distress. HEAD: Atraumatic, normocephalic. EYES: Eyes appear normal, extraocular movements intact, sclera anicteric, conjunctiva are normal. ENT: nares patent, oropharynx clear without exudates. Moist mucous membranes. NECK: Normal range of motion, supple without lymphadenopathy LUNGS: Breath sounds clear to auscultation bilaterally and equal. No wheezes rales or rhonchi. HEART: Regular rate and rhythm without murmurs ABDOMEN: Soft, nontender, normoactive bowel sounds. No rebound, guarding, or rigidity. No masses appreciated. EXTREMITIES: Nontender, good range of motion, no pitting or edema. NEUROLOGICAL: No focal neurological deficits. Moves all extremities spontaneously Motor and sensory grossly intact on exam. PSYCH: Normal mood, normal affect. SKIN: Warm, Dry, normal turgor, no rashes or lesions noted on exposed skin - Related Data Allergies/Adverse Reactions: No Known Allergies Allergy (Verified 11/26/17 17:56) Past Medical History - Social History Smoking Status: Unknown if Ever Smoked Family History: Reviewed & Not Pertinent Patient has suicidal ideation: No Patient has homicidal ideation: No - Past Medical History Cardiac Medical History: Reports: Hx Hypertension - preclampsia Pulmonary Medical History: Denies: Hx Tuberculosis Endocrine Medical History: Reports: Hx Diabetes Mellitus Type 2 - gestational Renal/ Medical History: Denies: Hx Peritoneal Dialysis Skin Medical History: Reports Hx MRSA - Immunizations Immunizations up to date: Yes Hx Diphtheria, Pertussis, Tetanus Vaccination: Yes Physical Exam - Vital signs Vitals: Temp Pulse Resp BP Pulse Ox 98.2 F 74 16 151/94 H 100 08/29/18 00:11 08/29/18 00:11 08/29/18 00:11 08/29/18 00:11 08/29/18 00:11 Course - Re-evaluation Re-evalutation: 08/29/18 07:22 Vitals reviewed. Nursing notes reviewed. Patient afebrile and nontoxic in appearance. She has been sleeping in the emergency room for the last 6 hours. She has been here for over 7 hours total. Patient has not requested pain medication since arrival. She is nontoxic in appearance. She is afebrile with no neck pain and I do not suspect meningitis. Chart review does show she has had [address] brain's at this facility in the past. I do not suspect intracranial mass lesion or bleeding. She has no history of trauma to necessitate further imaging of her brain. Patient was given Tylenol for her headache. She was counseled on the importance of primary care and return precautions. She will be discharged home in stable condition. - Vital Signs Vital signs: Temp Pulse Resp BP Pulse Ox 98.2 F 74 16 151/94 H 100 08/29/18 00:11 08/29/18 00:11 08/29/18 00:11 08/29/18 00:11 08/29/18 00:11 Discharge - Discharge Clinical Impression: Cephalgia Qualifiers: Headache type: unspecified Headache chronicity pattern: acute headache Intractability: not intractable Qualified Code(s): R51 - Headache Condition: Stable Disposition: HOME, SELF-CARE Instructions: Headache ([facility]), Family Physicians / Practices Additional Instructions: Please return to the emergency department if you have any worsening, or concern of your symptoms. Please return to the emergency department if you develop chest pain, difficulty breathing, severe abdominal pain, or ongoing vomiting. Please follow-up with your primary care physician in 2-3 days and any other recommended physicians. If prescribed, take all medications as directed. If you have any questions or concerns do not hesitate to return the emergency department for evaluation. Take Tylenol or ibuprofen at home for your headaches Return to the emergency room if your headaches are not improving with home medications or if you have new concerning symptoms including vision changes, intractable vomiting, and new numbness or weakness Referrals: RISA PATEL MD [Primary Care Provider] - Follow up in 3-5 days
[2018-08-29 08:15] VITALS: BP 152/98
== END 2018-08-29 08:15 | disposition home or self-care (01) ==
LOC: ER 23:47
DX: R51 Headache (principal); I10 Essential (primary) hypertension
CPT/HCPCS: 99283

== ENCOUNTER 2018-10-23 10:11 | Emergency (ER) | payer MEDICAID ==
[2018-10-23 10:46] LABS: ABSOLUTE BASOPHILS # (AUTO) 0.1 10^3/uL (0.0-0.2); ABSOLUTE EOSINOPHILS # (AUTO) 0.1 10^3/uL (0.0-0.6); ABSOLUTE LYMPHOCYTES (AUTO) 1.8 10^3/uL (0.5-4.7); ABSOLUTE MONOCYTES (AUTO) 0.4 10^3/uL (0.1-1.4); ABSOLUTE NEUT (AUTO) 4.8 10^3/uL (1.7-8.2); BASOPHILS % (AUTO) 1.8 % (0-2); HEMATOCRIT 33.7 % (36.0-47.0); HEMOGLOBIN 10.9 g/dL (12.0-15.5); LYMPHOCYTES % (AUTO) 25.2 % (13-45); MEAN CORPUSCULAR HEMOGLOBIN 22.3 pg (27.0-33.4); MEAN CORPUSCULAR HGB CONC 32.3 g/dL (32.0-36.0); MEAN CORPUSCULAR VOLUME 69 fl (80-97); MONOCYTES % (AUTO) 5.3 % (3-13); PLATELET COUNT 435 10^3/uL (150-450); RED BLOOD COUNT 4.87 10^6/uL (3.72-5.28); RED CELL DISTRIBUTION WIDTH 21.7 % (11.5-14.0); SEGMENTED NEUTROPHILS % (AUTO) 66.7 % (42-78); TOTAL CELLS COUNTED % (AUTO) 100 %; WHITE BLOOD COUNT 7.2 10^3/uL (4.0-10.5)
[2018-10-23 11:09] LABS: ACETAMINOPHEN < 10 ug/mL (10-30); ALANINE AMINOTRANSFERASE 30 U/L (9-52); ALBUMIN 4.2 g/dL (3.5-5.0); ALKALINE PHOSPHATASE 83 U/L (38-126); ANION GAP 11 (5-19); ASPARTATE AMINO TRANSFERASE 20 U/L (14-36); BILIRUBIN,DIRECT 0.2 mg/dL (0.0-0.4); BILIRUBIN,TOTAL 0.6 mg/dL (0.2-1.3); BLOOD UREA NITROGEN 11 mg/dL (7-20); CALCIUM 9.6 mg/dL (8.4-10.2); CARBON DIOXIDE 24 mmol/L (22-30); CHLORIDE 104 mmol/L (98-107); GLUCOSE 103 mg/dL (75-110); POTASSIUM 3.8 mmol/L (3.6-5.0); SODIUM 138.6 mmol/L (137-145); TOTAL PROTEIN 7.8 g/dL (6.3-8.2)
[2018-10-23 11:41] LABS: AMORPHOUS SEDIMENT,URINE 1+ /HPF; APPEARANCE,URINE TURBID; BILIRUBIN,URINE NEGATIVE (NEGATIVE); COLOR,URINE YELLOW; GLUCOSE, URINE NEGATIVE (NEGATIVE); KETONES,URINE TRACE mg/dL (NEGATIVE); LEUKOCYTE ESTERASE,URINE NEGATIVE (NEGATIVE); NITRITE,URINE NEGATIVE (NEGATIVE); PROTEIN,URINE 30 mg/dL (NEGATIVE)
[2018-10-23 11:43] LABS: URINE AMPHETAMINES SCREEN NEGATIVE; URINE BARBITURATES SCREEN NEGATIVE; URINE BENZODIAZEPINES SCREEN NEGATIVE; URINE COCAINE SCREEN NEGATIVE; URINE MARIJUANA (THC) SCREEN UNCONFIRMED POSITIVE; URINE METHADONE SCREEN NEGATIVE; URINE PHENCYCLIDINE SCREEN NEGATIVE
[2018-10-23 12:45] LABS: CHLAM PCR NOT DETECTED (NOT DETECT); GON PCR NOT DETECTED (NOT DETECT)
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
[2018-10-23 16:37] VITALS: BP 136/75
--- NOTE | 2018-10-23 16:53 | RADIOLOGY REPORT (SQ) ---
EXAM DESCRIPTION: U/S [id number] TRNABD 1GES W/ODOP COMPLETED DATE/TIME: 10/23/2018 4:12 pm REASON FOR STUDY: Pelvic pain with nausea and vomiting COMPARISON: None. TECHNIQUE: Transabdominal static and realtime grayscale images acquired of the pelvis. Additional se lected spectral and color Doppler images recorded. All images stored on PACs. bHCG: Not available. CLINICAL DATES: The patient is unsure of her last LMP. LIMITATIONS: None. FINDINGS: FETUS: Single Living intrauterine . ULTRASOUND EGA: 7 weeks 1 day ULTRASOUND ELIANA: 06/10/2019 EFW: Not applicable less than 20 weeks. CRL: 1.0 cm FHR: 152 beats per minute. SURVEY: To early to access. AMNIOTIC FLUID: Adequate amount. PLACENTA: Not yet developed due to early gestation. SUBCHORIONIC BLEED: Yes. SIZE OF BLEED: 3.1 x 1.9 x 1.3 cm UTERUS: The uterus measures 10.0 x 7.6 x 6.7 cm. No masses. No anomalies. CERVICAL LENGTH: 3.5 cm Closed. RIGHT ADNEXA: The right ovary measures 3.1 x 3.0 x 2.4 cm. A small 1.1 x 1.6 x 1.3 cm corpus luteum cyst of . No adnexal free fluid. LEFT ADNEXA: Not visualized due to overlying bowel gas. FREE FLUID: None. OTHER: No other significant finding. IMPRESSION: LIVING INTRAUTERINE . EGA: 7 weeks 1 day Subchorionic bleed as above. Trimester of : First - 0 to 13 weeks. TECHNICAL DOCUMENTATION: JOB ID: [id number]- All Rights Reserved rev-12/22 Reading location - IP/workstation name: [email or web address]
--- NOTE | 2018-10-23 17:42 | ER Document Report ---
Entered by LESLI GOVEA SCRIBE 10/23/18 1019 Acting as scribe for:OMER SALEH MD ED GI/ <MECCA HARGROVE - Last Filed: 10/23/18 15:31> - General Mode of Arrival: Medic Information source: Patient, [facility] Records TRAVEL OUTSIDE OF THE [place] IN LAST 30 DAYS: No <OMER SALEH - Last Filed: 10/23/18 16:19> - General Stated Complaint: ABDOMINAL PAIN Time Seen by Provider: 10/23/18 10:15 Primary Care Provider: [facility] [Provider Group] - Follow up as needed RISA PATEL MD [ACTIVE STAFF] - Follow up as needed Notes: 32-year-old female who presents to the emergency department today with complaints of lower abdomen and pelvic pain beginning x4 days ago with associated nausea and vomiting which began a few hours later. Patient states that her last menstrual period was in early August although she cannot remember a specific date. Patient states she is not sure if she is or not. Patient is A2. Patient received Zofran in route by EMS which she states did relieve her nausea. Patient also mentions that she has had white vaginal discharge for approximately x1 week that she describes as "cottage cheese or spoiled milk". Patient denies fevers. (LESLI GOVEA) 32-year-old female who presents to the emergency department today with complaints of lower abdomen and pelvic pain beginning x4 days ago with associated nausea and vomiting which began a few hours later. Patient states that her last menstrual period was in early August although she cannot remember a specific date. Patient states she is not sure if she is or not. Patient is A2. Patient received Zofran in route by EMS which she states did relieve her nausea. Patient also mentions that she has had white vaginal discharge for approximately x1 week that she describes as "cottage cheese or spoiled milk". Patient denies fevers. Patient also reports that she has been feeling depressed for at least the last 2 weeks without any particular trigger. He states "I just feel suicidal" for the past few days. She states the only reason she does not do anything are her children. She does have 5 children at home, and she lives with her mother in a 2 bedroom apartment. She states she has not felt suicidal in the past other than many years ago in her teenage years. She denies having a plan. (OMER SALEH) - Related Data Allergies/Adverse Reactions: No Known Allergies Allergy (Verified 11/26/17 17:56) Past Medical History - General Information source: Patient, [facility] Records - Social History Smoking Status: Current Every Day Smoker - 1/2 ppd Cigarette use (# per day): Yes Frequency of alcohol use: None Drug Abuse: None Occupation: unemployed Family History: Reviewed & Not Pertinent - Past Medical History Cardiac Medical History: Reports: Hx Hypertension - preclampsia Endocrine Medical History: Reports: Hx Diabetes Mellitus Type 2 - gestational Skin Medical History: Reports Hx MRSA Past Surgical History: Reports: Hx Section - x1 - Immunizations Immunizations up to date: Yes Hx Diphtheria, Pertussis, Tetanus Vaccination: Yes <OMER SALEH - Last Filed: 10/23/18 16:19> Review of Systems - Review of Systems Constitutional: denies: Fever EENT: No symptoms reported Cardiovascular: No symptoms reported Respiratory: No symptoms reported Gastrointestinal: See HPI, Abdominal pain, Nausea, Vomiting Genitourinary: No symptoms reported Female Genitourinary: See HPI, Last menstrual period - Early August, unsure of date, - ? Musculoskeletal: No symptoms reported Skin: No symptoms reported Hematologic/Lymphatic: No symptoms reported Neurological/Psychological: No symptoms reported -: Yes All other systems reviewed and negative <OMER SALEH - Last Filed: 10/23/18 16:19> Physical Exam <OMER SALEH - Last Filed: 10/23/18 16:19> - Vital signs Vitals: Temp Pulse BP Pulse Ox 97.8 F 97 168/88 H 99 10/23/18 10:15 10/23/18 10:15 10/23/18 10:15 10/23/18 10:15 - Notes Notes: Physical Exam: General: Alert, obese. HEENT: Normocephalic. Atraumatic. PERRL. Extraocular movements intact. Oropharynx clear. Neck: Supple. Non-tender. Respiratory: No respiratory distress. Clear and equal breath sounds bilaterally. Cardiovascular: Regular rate and rhythm. Abdominal: Diffuse lower abdominal tenderness with palpation, worsened in the suprapubic region and right lower quadrant. No distension. Normal Bowel Sounds. Back: Non-tender. No deformity or step off. Extremities: Moves all four extremities. Upper extremities: Normal inspection. Normal ROM. Lower extremities: Normal inspection. No edema. Normal ROM. Neurological: Normal cognition. AAOx4. Normal speech. Psychological: Normal affect. Normal Mood. Skin: Warm. Dry. Normal color. (LESLI GOVEA) Physical Exam: General: Alert, obese. HEENT: Normocephalic. Atraumatic. PERRL. Extraocular movements intact. Oropharynx clear. Neck: Supple. Non-tender. Respiratory: No respiratory distress. Clear and equal breath sounds bilaterally. Cardiovascular: Regular rate and rhythm. Abdominal: Diffuse lower abdominal tenderness with palpation, worsened in the suprapubic region and right lower quadrant. No distension. Normal Bowel Sounds. Back: Non-tender. No deformity or step off. Extremities: Moves all four extremities. Upper extremities: Normal inspection. Normal ROM. Lower extremities: Normal inspection. No edema. Normal ROM. Neurological: Normal cognition. AAOx4. Normal speech. Psychological: Normal affect. Normal Mood. Skin: Warm. Dry. Normal color. (OMER SALEH) Course - Laboratory Result Diagrams: 10/23/18 10:20 10/23/18 10:20 <MECCA HARGROVE - Last Filed: 10/23/18 15:31> - Laboratory Result Diagrams: 10/23/18 10:20 10/23/18 10:20 - Diagnostic Test Radiology reviewed: Image reviewed, Reports reviewed - Ultrasound shows a 7-week 5-day intrauterine with a heart rate of 152. There is a subchorionic bleed. <OMER SALEH - Last Filed: 10/23/18 16:19> - Vital Signs Vital signs: Temp Pulse Resp BP Pulse Ox 97.8 F 80 16 140/90 H 100 10/23/18 10:15 10/23/18 15:06 10/23/18 15:06 10/23/18 15:06 10/23/18 15:06 - Laboratory Laboratory results interpreted by va: 10/23/18 10/23/18 10/23/18 10:20 10:20 10:20 Hgb 10.9 L Hct 33.7 L MCV 69 L MCH 22.3 L RDW 21.7 H Serum HCG, Qual POSITIVE H Beta HCG, Quant Urine Protein Urine Ketones Urine Urobilinogen Acetaminophen < 10 L 10/23/18 10/23/18 10:20 10:20 Hgb Hct MCV MCH RDW Serum HCG, Qual Beta HCG, Quant 62210.00 H Urine Protein 30 H Urine Ketones TRACE H Urine Urobilinogen 2.0 H Acetaminophen Discharge <MECCA HARGROVE - Last Filed: 10/23/18 15:31> <OMER SALEH - Last Filed: 10/23/18 16:19> - Discharge Clinical Impression: Pelvic pain affecting in first trimester, antepartum, with 7 completed weeks gestation Depression Qualifiers: Depression Type: unspecified Qualified Code(s): F32.9 - Major depressive disorder, single episode, unspecified Condition: Stable Disposition: HOME, SELF-CARE Additional Instructions: (1) Pelvic Pain in : Lower abdominal pain during can have many causes. We look for serious causes such as appendicitis, tubal , miscarriage, placental separation, or urinary tract infection. Less serious causes of pain include corpus luteum cyst (ovarian cyst of ) or stretching of the pelvic tissues by the enlarging uterus. Sometimes the pain comes from the bowels. Call us or come back for reexamination if any problems occur, such as: (1) Pain that becomes more severe, steady, or becomes concentrated in one specific area. Also, pain that is more severe with movement or coughing. (2) Vomiting that persists or becomes more frequent. (3) Blood in the vomitus, urine, or bowel movements. Blood in the stool may have a tarry or black appearance. (4) Shaking chills or fever greater than 100 degrees. (5) The abdomen becomes more distended or swollen. (6) Bowel movements cease. (7) Vaginal bleeding. (2) You have been evaluated and assessed at [facility] Emergency Department by both the medical and behavioral health teams after presenting for depression and suicidal thoughts and are now deemed appropriate for discharge. While in the ED, you received an initial medical screening, lab work, EKG, medications, direct staff observation, clinical evaluation, physician assessment, and outpatient resources. You were cleared from both services and Mobile crisis resources were provided to you for when these situations arise. You are encouraged to develop positive coping skills through outpatient counseling. You were also provided resources for women and children. DEPRESSION: Your evaluation reveals that you have mental depression. While symptoms may be vague, they often include disturbance of sleep, fatigue, loss of appetite, and general loss of interest in life. While depression may be a side effect of drugs, or a reaction to a major change in your life, many cases have no known cause. If depression is acute, and related to a major loss in your life, you can expect it to clear completely with time. If you have been depressed a long gabriela e, are prone to repeated bouts of depression or low mood, or have been thinking of suicide, get help. Depression can be treated with anti-depressant medication and counselling. Long-term depression will often take a few weeks to clear, even with appropriate medication. Follow-up care is important. SUICIDAL IDEATION: Suicidal ideation is a common medical term for thoughts about suicide, which may be as detailed as a formulated plan, without the suicidal act itself. Although most people who undergo suicidal ideation do not commit suicide, some go on to make suicide attempts. The range of suicidal ideation varies greatly from fleeting to detailed planning, role playing, and unsuccessful attempts. While thoughts about suicide are common, most people do not carry out serious actions to commit suicide. Based upon your evaluation and discussion with you, we do not believe you are currently at risk to act upon your thoughts of suicide. You have agreed to return to the Emergency Department, at any time, if you feel inclined to act upon your suicidal thoughts. FOLLOW-UP CARE: If you have been referred to a physician for follow-up care, call the physicians office for an appointment as you were instructed or within the next two days. If you experience worsening or a significant change in your symptoms, notify the physician immediately or return to the Emergency Department at any time for re-evaluation. Your ultrasound shows a 7-week 5-day intrauterine with a normal heartbeat. There is also a small subchorionic bleed. Testing for chlamydia and gonorrhea was negative. Take Tylenol for pelvic pain. Drink plenty of fluids. [facility] for recheck of your pelvic pain. Referrals: [facility] [Provider Group] - Follow up as needed RISA PATEL MD [ACTIVE STAFF] - 10/25/18 Scribe Attestation: 10/23/18 11:48 I personally performed the services described in the documentation, reviewed and edited the documentation which was dictated to the scribe in my presence, and it accurately records my words and actions. (OMER SALEH) I personally performed the services described in the documentation, reviewed and edited the documentation which was dictated to the scribe in my presence, and it accurately records my words and actions.
== END 2018-10-23 16:37 | disposition home or self-care (01) ==
LOC: ER 10:11
DX: O26.891 Other specified pregnancy related conditions, first trimester (principal); R10.2 Pelvic and perineal pain; O99.341 Other mental disorders complicating pregnancy, first trimester; F32.9 Major depressive disorder, single episode, unspecified; O21.9 Vomiting of pregnancy, unspecified; O20.8 Other hemorrhage in early pregnancy; O99.331 Smoking (tobacco) complicating pregnancy, first trimester; F17.210 Nicotine dependence, cigarettes, uncomplicated; O99.211 Obesity complicating pregnancy, first trimester; E66.9 Obesity, unspecified; Z3A.01 Less than 8 weeks gestation of pregnancy; N89.8 Other specified noninflammatory disorders of vagina; Z86.32 Personal history of gestational diabetes
CPT/HCPCS: 36415; 76801; 80053; 80307; 81001; 84702; 84703; 85025; 87491; 87591; 99285

== ENCOUNTER 2018-12-18 08:36 | Emergency (ER) | payer MEDICAID ==
[2018-12-18] MEDS ORDERED: NORMAL SALINE 1000 ML 1,000 ML IV ONE (09:21)
[2018-12-18] MEDS ORDERED: PYRIDOXINE HCL INJ 100 MG/1 ML VIAL IM ONE (09:22)
[2018-12-18] MEDS ORDERED: METOCLOPRAMIDE HCL INJ/PF 10 MG/2 ML SDV IV ONE (09:22)
--- NOTE | 2018-12-18 09:24 | ER Document Report ---
ED Medical Screen (RME) - General Chief Complaint: Abdominal Pain Stated Complaint: VOMITING Time Seen by Provider: 12/18/18 09:21 Mode of Arrival: Ambulatory Information source: Patient Notes: 33-year-old female presented to ED for complaint of nausea vomiting diarrhea and stomach cramping she is 15 weeks . She states she is at least vomited 30 times over the last 24 hours and had 15 diarrhea stools. She states she is not able to keep anything down. She states she is 15 weeks . Will repeat blood work IV fluids vitamin B6 and Reglan. I have greeted and performed a rapid initial assessment of this patient. A comprehensive ED assessment and evaluation of the patient, analysis of test results and completion of medical decision making process will be conducted by a n additional ED providers. Dictation of this chart was performed using voice recognition software; therefore, there may be some unintended grammatical errors. TRAVEL OUTSIDE OF THE [place] IN LAST 30 DAYS: No - Related Data Allergies/Adverse Reactions: No Known Allergies Allergy (Verified 12/18/18 08:40) Past Medical History - Social History Frequency of alcohol use: None Drug Abuse: None - Past Medical History Cardiac Medical History: Reports: Hx Hypertension - preclampsia Pulmonary Medical History: Denies: Hx Tuberculosis Endocrine Medical History: Reports: Hx Diabetes Mellitus Type 2 - gestational Renal/ Medical History: Denies: Hx Peritoneal Dialysis Skin Medical History: Reports Hx MRSA Past Surgical History: Reports: Hx Section - x1 - Immunizations Immunizations up to date: Yes Hx Diphtheria, Pertussis, Tetanus Vaccination: Yes Physical Exam - Vital signs Vitals: Temp Pulse Resp BP Pulse Ox 98.5 F 84 17 150/79 H 99 12/18/18 08:57 12/18/18 08:57 12/18/18 08:57 12/18/18 08:57 12/18/18 08:57 Course - Vital Signs Vital signs: Temp Pulse Resp BP Pulse Ox 98.5 F 84 17 150/79 H 99 12/18/18 08:57 12/18/18 08:57 12/18/18 08:57 12/18/18 08:57 12/18/18 08:57
[2018-12-18 09:26] LABS: APPEARANCE,URINE SLIGHTLY-CLOUDY; BILIRUBIN,URINE NEGATIVE (NEGATIVE); COLOR,URINE AMBER; GLUCOSE, URINE NEGATIVE (NEGATIVE); KETONES,URINE TRACE mg/dL (NEGATIVE); LEUKOCYTE ESTERASE,URINE TRACE (NEGATIVE); NITRITE,URINE NEGATIVE (NEGATIVE); PROTEIN,URINE 100 mg/dL (NEGATIVE); UROBILINOGEN,URINE NEGATIVE mg/dL (<2.0)
[2018-12-18 09:46] LABS: ABSOLUTE LYMPHOCYTES (AUTO) 0.6 10^3/uL (0.5-4.7); ABSOLUTE MONOCYTES (AUTO) 0.4 10^3/uL (0.1-1.4); ABSOLUTE NEUT (AUTO) 8.7 10^3/uL (1.7-8.2); BASOPHILS % (AUTO) 0.4 % (0-2); EOSINOPHILS % (AUTO) 0.2 % (0-6); HEMATOCRIT 35.5 % (36.0-47.0); HEMOGLOBIN 11.7 g/dL (12.0-15.5); LYMPHOCYTES % (AUTO) 6.2 % (13-45); MEAN CORPUSCULAR HEMOGLOBIN 24.7 pg (27.0-33.4); MEAN CORPUSCULAR HGB CONC 32.8 g/dL (32.0-36.0); MEAN CORPUSCULAR VOLUME 75 fl (80-97); PLATELET COUNT 354 10^3/uL (150-450); RED BLOOD COUNT 4.72 10^6/uL (3.72-5.28); RED CELL DISTRIBUTION WIDTH 23.6 % (11.5-14.0); SEGMENTED NEUTROPHILS % (AUTO) 89.2 % (42-78); TOTAL CELLS COUNTED % (AUTO) 100 %; WHITE BLOOD COUNT 9.8 10^3/uL (4.0-10.5)
[2018-12-18 10:13] LABS: ALANINE AMINOTRANSFERASE 20 U/L (9-52); ALKALINE PHOSPHATASE 70 U/L (38-126); ANION GAP 9 (5-19); ASPARTATE AMINO TRANSFERASE 22 U/L (14-36); BILIRUBIN,DIRECT 0.3 mg/dL (0.0-0.4); BILIRUBIN,TOTAL 0.8 mg/dL (0.2-1.3); BLOOD UREA NITROGEN 5 mg/dL (7-20); CALCIUM 9.5 mg/dL (8.4-10.2); CARBON DIOXIDE 23 mmol/L (22-30); CHLORIDE 106 mmol/L (98-107); GLUCOSE 87 mg/dL (75-110); POTASSIUM 4.2 mmol/L (3.6-5.0); SODIUM 138.1 mmol/L (137-145); TOTAL PROTEIN 7.6 g/dL (6.3-8.2)
--- NOTE | 2018-12-18 10:26 | ER Document Report ---
ED GI/ - General Chief Complaint: Abdominal Pain Stated Complaint: VOMITING Time Seen by Provider: 12/18/18 09:21 Mode of Arrival: Ambulatory Notes: Patient is approximately 3 to 4 months , last menstrual cycle August, , who is here complaining of vomiting and diarrhea since yesterday. It is more than her usual morning sickness nausea and vomiting. She says she is having pain all over her entire abdomen. Has not had any fever. No UTI symptoms. Patient was here and had an ultrasound done on October 23. She is previously been delivered by . Denies any current bleeding or sp otting. Not on any medications for any medical conditions. TRAVEL OUTSIDE OF THE [place] IN LAST 30 DAYS: No - Related Data Allergies/Adverse Reactions: No Known Allergies Allergy (Verified 12/18/18 08:40) Past Medical History - General Information source: Patient - Social History Smoking Status: Former Smoker Cigarette use (# per day): No Frequency of alcohol use: None Drug Abuse: None Family History: Reviewed & Not Pertinent Patient has suicidal ideation: No Patient has homicidal ideation: No - Past Medical History Cardiac Medical History: Reports: Hx Hypertension - preclampsia Endocrine Medical History: Reports: Hx Diabetes Mellitus Type 2 - gestational Skin Medical History: Reports Hx MRSA Past Surgical History: Reports: Hx Section - x1 - Immunizations Immunizations up to date: Yes Hx Diphtheria, Pertussis, Tetanus Vaccination: Yes Review of Systems - Review of Systems Notes: REVIEW OF SYSTEMS: CONSTITUTIONAL : Denies fever. EENT: Denies eye, ear, nose or mouth or throat pain or other symptoms. CARDIOVASCULAR: Denies chest pain. RESPIRATORY: Denies cough, chest congestion, or shortness of breath. GASTROINTESTINAL: See HPI. GENITOURINARY: Denies difficulty or painful urinating, urinary frequency, blood in urine. MUSCULOSKELETAL: Denies back or neck pain. Denies joint pain or swelling. SKIN: Denies rash or skin lesions. NEUROLOGICAL: Denies LOC or altered mental status. Denies headache. Denies sensory loss or motor deficits. ALL OTHER SYSTEMS REVIEWED AND NEGATIVE. Physical Exam - Vital signs Vitals: Temp Pulse Resp BP Pulse Ox 98.5 F 84 17 150/79 H 99 12/18/18 08:57 12/18/18 08:57 12/18/18 08:57 12/18/18 08:57 12/18/18 08:57 Interpretation: Hypertensive - Mild, but Notes: PHYSICAL EXAMINATION: GENERAL: Well-appearing, in no acute distress. HEAD: Atraumatic, normocephalic. EYES: Pupils equal round and reactive to light, extraocular movements intact. ENT: oropharynx clear without exudates. Moist mucous membranes. NECK: Normal range of motion, supple. LUNGS: Breath sounds clear and equal bilaterally. HEART: Regular rate and rhythm without murmurs. ABDOMEN: Soft, nontender. No guarding or rebound. No masses. BACK: No tenderness throughout entire back. EXTREMITIES: Normal range of motion without pain. NEUROLOGICAL: Normal speech, normal gait. Normal sensory, motor, and reflex exams. Awake, alert, and oriented x3. Cranial nerves normal. PSYCH: Normal mood, normal affect. SKIN: Warm, dry, no rashes. Course - Re-evaluation Re-evalutation: 12/18/18 10:26 Patient will have lab studies done. IV saline given. Ultrasound to be performed. 12/18/18 12:28 Ultrasound shows a living 16-week intrauterine . Labs are essentially unremarkable. Patient is received IV fluids. Says she feels better. Will dis charge with a prescription for Zofran. Needs OB follow-up. - Vital Signs Vital signs: Temp Pulse Resp BP Pulse Ox 98.5 F 84 17 150/79 H 99 12/18/18 08:57 12/18/18 08:57 12/18/18 08:57 12/18/18 08:57 12/18/18 08:57 - Laboratory Result Diagrams: 12/18/18 09:37 12/18/18 09:37 Laboratory results interpreted by me: 12/18/18 12/18/18 12/18/18 08:55 09:37 09:37 Hgb 11.7 L Hct 35.5 L MCV 75 L MCH 24.7 L RDW 23.6 H Seg Neutrophils % 89.2 H Lymphocytes % 6.2 L Absolute Neutrophils 8.7 H BUN 5 L Beta HCG, Quant 32193.00 H Urine Protein 100 H Urine Ketones TRACE H Ur Leukocyte Esterase TRACE H Urine HCG, Qual POSITIVE H Discharge - Discharge Clinical Impression: , Vomiting and diarrhea Condition: Stable Disposition: HOME, SELF-CARE Additional Instructions: You are . care is best started as early in as possible. If you're unsure about continuing this , you should discuss this with your physician or with fixed wing aircraft flight engineer at [facility]. You should take only medications approved by your physician. Acetaminophen can safely be taken for minor pains. As a rule, medication for chronic conditions such as asthma or seizures can safely be continued. You should dis cuss with the physician every medicine you take. Any regular exercise program can be continued. Talk to your physician, however, before engaging in competitive or demanding sports. Alcohol, smoking, and "street drugs" are dangerous to your baby. Cocaine is especially dangerous. Don't use any illicit drugs! Ultrasound showed a living intrauterine of 16 weeks and 1 day gesstat ion. VOMITING: Vomiting (or nausea without vomiting) can be caused by many other different problems. It can mean that something's wrong with the stomach, such as ulcers or inflammation or the intestinal tract, such as appendicitis. But it can also be a symptom of a problem that has nothing to do with the stomach or intestines. Vomiting is common with severe headaches, earaches, tonsillitis, and kidney infections, etc. We see it with pneumonia or heart attacks. Drugs can cause nausea and vomiting. Many abdominal problems cause vomiting; for example, gallstones, kidney stones, pancreatitis, and intestinal obstruction (blocked bowels). In most cases, curing the vomiting depends on fixing the problem that caused it. For temporary relief, we may use an anti-nausea medicine. For home use, we can prescribe suppositories, chewable pills, pills that dissolve in the mouth, or liquid anti-nausea drugs. If the vomiting seems to be caused by a problem in the stomach, acid-suppressing drugs may be prescribed as well. It's important to avoid dehydration. Sip small amounts of clear liquids (soft drinks, tea, broth, etc) . Try to take fluids frequently even if you are v omiting to prevent dehydration. Take increasing amounts of fluid and when liquids are being consumed successfully, advance to small amounts of bland food (toast, soups, mashed potatoes, etc.) until you are able to resume a regular diet. Avoid aspirin, tobacco, and alcohol. If the vomiting worsens, if the problem that's making you vomit worsens, or if there's evidence of bleeding in the stomach (such as black, tarry stool, or bloody or black vomit), you should return immediately. Also, return if abdominal pain worsens or becomes localized to one area or you develop high fever. Call your doctor if you aren't improved in 24 hours. DIARRHEA, NON-SPECIFIC: Diarrhea means frequent, watery stools. There are many causes. Any problem that keeps the intestinal tract from absorbing water from the stool can lead to diarrhea. A sudden new diarrhea problem is usually caused by a virus, food sensitivity, toxic bacteria, or drugs. In this case, we expect the problem to go away soon. Testing is done only if you seem seriously ill from the diarrhea. If you have chronic diarrhea, or diarrhea that keeps coming back, we need to find out why. Chronic diarrhea can be due to inflammation of the bowels such as Crohn's disease or ulcerative colitis, food sensitivity such as intolerance to lactose or wheat protein, irritable bowel syndrome, and other problems. If your diarrhea is a significant problem but it's not clear why you have it, we'll refer you to a specialist for further testing. During an episode of diarrhea, drink small amounts (two to six ounces) of clear liquids (soft drinks, sport drinks, herb teas, broth, etc). Take fluids frequently to prevent dehydration. It's usually not a problem to take mild anti- diarrhea medication such as Kaopectate or Pepto-Bismol. As the diarrhea eases, advance to small amounts of bland food (mashed potato, toast) for 24 hours. Call the physician if blood appears in your vomit or stool, if vomiting lasts longer than 24 hours, if the abdominal pain worsens or becomes localized to one area, if you develop high fever, or if you become lightheaded and weak. VIRAL SYNDROME: The physician has diagnosed a viral infection. Viruses not only cause "colds," but can cause many different symptoms including generalized aching, fever, headache, cough, diarrhea, nausea, vomiting, and fatigue. The treatment, for the most part, is simply relief of symptoms. This means that antibiotics are usually not given. Rest, fluids, pain medications and, occasionally, medication for the specific symptoms that are most bothersome will be prescribed. Use good handwashing to avoid passing the virus to others. Shared toys should be cleaned with disinfectant. Clean the toilets, sinks, and counter surfaces in bathrooms. Launder clothing in hot water. Contact the physician if you develop any new or unusual symptoms such as severe headache, stiff neck, high fever, chest pain, productive cough, or shortness of breath. You should be rechecked if you don't see marked improvement within seven to 10 days. INTRAVENOUS (I V) FLUIDS: As part of your care today, you received intravenous (IV) fluids. IV fluids are administered to patients who are dehydrated or to those who have certain chemical (electrolyte) abnormalities that need correcting. ANTINAUSEA MEDICATION: You have been given a medication to suppress nausea and vomiting. This type of medication can be given as a shot, pill, or suppository. It will usually last for many hours. Pills and shots usually last six to eight hours. For the ty pical illness, only one or two doses of the medication may be necessary. Mild lightheadedness may occur. This type of medicine can cause drowsiness. Do not drive or operate dangerous machinery while under its influence. Do not mix with alcohol. See your doctor at once if you have muscle spasms or tightness, or uncontrollable motions (particularly of the neck, mouth, or jaw). Persistent vomiting or severe lightheadedness should also be evaluated by the physician. FOLLOW-UP CARE: If you have been referred to a physician for follow-up care, call the physicians office for an appointment as you were instructed or within the next two days. If you experience worsening or a significant change in your symptoms, notify the physician immediately or return to the Emergency Department at any time for re-evaluation. Prescriptions: Ondansetron [Zofran Odt 4 mg Tablet] 1 - 2 tab PO Q4H PRN #15 tab.rapdis PRN Reason: For Nausea/Vomiting Referrals: [facility] [Provider Group] - Follow up in 3-5 days
--- NOTE | 2018-12-18 12:22 | RADIOLOGY REPORT (SQ) ---
EXAM DESCRIPTION: U/S OB 14+ TRNABD 1GES W/O DOP COMPLETED DATE/TIME: 12/18/2018 11:41 am REASON FOR STUDY: nvd LMP 08/14/2018. 18 weeks 0 days. COMPARISON: 10/23/2018 TECHNIQUE: Static and Dynamic grayscale imaging performed of gravid uterus using transabdominal appr oach. Additional selected color Doppler and spectral images recorded. All stored on PACS. LIMITATIONS: None. FINDINGS: FETUSES SEEN:1 EGA: 16 weeks 1 day Calculated using BPD,FL,HC,AC documented on images. 2 weeks discrepancy with cli nical dates. ELIANA: 06/03/2019 EFW: 144+/- 21 grams PERCENTILE: Not calculated BELKIS: Adequate PLACENTA: Anterior grade 1 PRESENTATION: Cephalic. ANATOMY: HEART RATE: 165 beats per minute. FOUR CHAMBER HEART: Not confirmed THREE VESSEL CORD: Yes. CORD INSERTION: Visualized. KIDNEYS AND BLADDER: Kidneys not well seen. Bladder is normal. STOMACH: Visualized. Appears normal. SPINE: Not well seen. BRAIN AND LATERAL VENTRICLES: Not well seen. OTHER: No other significant finding. MATERNAL ADNEXA: Maternal ovaries not visualized. CERVICAL LENGTH: 4.6 cm. Closed. OTHER: No other significant finding. IMPRESSION: LIVING INTRAUTERINE . ESTIMATED GESTATIONAL AGE 16 weeks 1 day NO VISUALIZED ANOMALIES. Trimester of : Second trimester - 13 weeks 1 day to 27 weeks 6 days. TECHNICAL DOCUMENTATION: JOB ID: [id number] [employer]- All Rights Reserved Reading location - IP/workstation name: [email or web address]
[2018-12-18 12:50] VITALS: BP 141/81
== END 2018-12-18 12:51 | disposition home or self-care (01) ==
LOC: ER 08:36
DX: O21.9 Vomiting of pregnancy, unspecified (principal); R19.7 Diarrhea, unspecified; Z3A.16 16 weeks gestation of pregnancy; Z86.14 Personal history of Methicillin resistant Staphylococcus aureus infection
CPT/HCPCS: 99284; 96372; 96361; 96374; 36415; 82553; 84702; 85025; 81025; 80053; 81001; 76805; J2765; J3415; J7030

== ENCOUNTER 2019-01-21 16:46 | Outpatient (CLI) | payer MEDICAID ==
[2019-01-21 18:30] LABS: APPEARANCE,URINE SLIGHTLY-CLOUDY; BILIRUBIN,URINE NEGATIVE (NEGATIVE); COLOR,URINE YELLOW; GLUCOSE, URINE NEGATIVE (NEGATIVE); KETONES,URINE NEGATIVE (NEGATIVE); LEUKOCYTE ESTERASE,URINE SMALL (NEGATIVE); NITRITE,URINE NEGATIVE (NEGATIVE); PROTEIN,URINE 30 mg/dL (NEGATIVE); URINE SPECIFIC GRAVITY 1.023
[2019-01-21 18:41] LABS: URINE AMPHETAMINES SCREEN NEGATIVE; URINE BARBITURATES SCREEN NEGATIVE; URINE BENZODIAZEPINES SCREEN NEGATIVE; URINE COCAINE SCREEN NEGATIVE; URINE METHADONE SCREEN NEGATIVE; URINE PHENCYCLIDINE SCREEN NEGATIVE
[2019-01-21 18:49] LABS: URINE MARIJUANA (THC) SCREEN UNCONFIRMED POSITIVE
[2019-01-21 20:39] LABS: ABSOLUTE BASOPHILS # (AUTO) 0.1 10^3/uL (0.0-0.2); ABSOLUTE EOSINOPHILS # (AUTO) 0.2 10^3/uL (0.0-0.6); ABSOLUTE LYMPHOCYTES (AUTO) 1.7 10^3/uL (0.5-4.7); ABSOLUTE MONOCYTES (AUTO) 0.5 10^3/uL (0.1-1.4); ABSOLUTE NEUT (AUTO) 6.5 10^3/uL (1.7-8.2); BASOPHILS % (AUTO) 0.7 % (0-2); EOSINOPHILS % (AUTO) 1.9 % (0-6); HEMOGLOBIN 10.9 g/dL (12.0-15.5); MEAN CORPUSCULAR VOLUME 78 fl (80-97); MONOCYTES % (AUTO) 5.5 % (3-13); PLATELET COUNT 358 10^3/uL (150-450); RED BLOOD COUNT 4.37 10^6/uL (3.72-5.28); RED CELL DISTRIBUTION WIDTH 19.3 % (11.5-14.0); SEGMENTED NEUTROPHILS % (AUTO) 72.9 % (42-78); TOTAL CELLS COUNTED % (AUTO) 100 %; WHITE BLOOD COUNT 8.9 10^3/uL (4.0-10.5)
[2019-01-21 22:10] LABS: CHLAM PCR NOT DETECTED (NOT DETECT); GON PCR NOT DETECTED (NOT DETECT)
[2019-01-23 11:37] LABS: HEPATITIS C VIRUS AB <0.1 s/co ratio (0.0-0.9)
[2019-01-23 11:52] LABS: HEPATITS B SURFACE ANTIGEN Negative (Negative)
== END 2019-01-21 20:24 | disposition home or self-care (01) ==
LOC: EDSTATUS 16:46 → LC 17:27
PROVIDERS: ATTEND Obstetrics & Gynecology
PROC: 4A1HXCZ Monitoring of Products of Conception, Cardiac Rate, External Approach (ICD-10-PCS; principal; 2019-01-21)
DX: O47.02 False labor before 37 completed weeks of gestation, second trimester (principal); O99.332 Smoking (tobacco) complicating pregnancy, second trimester; F17.210 Nicotine dependence, cigarettes, uncomplicated; Z3A.21 21 weeks gestation of pregnancy; Z11.4 Encounter for screening for human immunodeficiency virus [HIV]
CPT/HCPCS: 59899; 86900; 86901; 36415; 86850; 85025; 86592; 81001; 87340; 86701; 80307; 87491; 87591; 86803; 86804; G0480 ×2; 80349

== ENCOUNTER → 2019-02-13 | Outpatient (CLI) | payer MEDICAID ==
--- NOTE | 2019-02-13 14:25 | RADIOLOGY REPORT (SQ) ---
EXAM DESCRIPTION: U/S OB 14+ TRNABD 1GES W/O DOP COMPLETED DATE/TIME: 02/13/2019 2:01 pm REASON FOR STUDY: Z34.82 ENCOUNTER FOR SUPRVSN OF NORMAL , SECOND TRIMESTER Z34.82 ENCOUNT ER FOR SUPRVSN OF NORMAL , SECOND TRI COMPARISON: 12/18/2018, 10/23/2018 TECHNIQUE: Static and Dynamic grayscale imaging performed of gravid uterus using transabdominal appr oach. Additional selected color Doppler and spectral images recorded. All stored on PACS. LIMITATIONS: None. FINDINGS: FETUSES SEEN:1 EGA: 23 weeks 4 days Calculated using BPD,FL,HC,AC documented on images. No discrepancy with clinica l dates. ELIANA: 06/08/2017 EFW: 637 grams PERCENTILE: 49th percentile BELKIS: Largest pocket 5.8 cm PLACENTA: Anterior grade 1. No abruption or previa. PRESENTATION: Transverse ANATOMY: HEART RATE: 141 beats per minute. FOUR CHAMBER HEART: Visualized. THREE VESSEL CORD: Yes. CORD INSERTION: Visualized. KIDNEYS AND BLADDER: Visualized. Appear normal. STOMACH: Visualized. Appears normal. SPINE: Normal as visualized. BRAIN AND LATERAL VENTRICLES: Visualized. Appear normal. OTHER: No other significant finding. MATERNAL ADNEXA: Maternal ovaries not visualized. CERVICAL LENGTH: 4.9 cm Closed. OTHER: No other significant finding. IMPRESSION: LIVING INTRAUTERINE . ESTIMATED GESTATIONAL AGE 23 weeks 4 days NO VISUALIZED ANOMALIES. Trimester of : Second trimester - 13 weeks 1 day to 27 weeks 6 days. TECHNICAL DOCUMENTATION: JOB ID: [id number] [employer]- All Rights Reserved Reading location - IP/workstation name: [email or web address]
== END ==
LOC: RAD 12:54
PROVIDERS: ATTEND Midwife
DX: Z34.82 Encounter for supervision of other normal pregnancy, second trimester (principal)
CPT/HCPCS: 76805

== ENCOUNTER 2019-02-18 15:18 | Outpatient (CLI) | payer MEDICAID ==
[2019-02-18] MEDS ORDERED: ACETAMINOPHEN 325 MG TABLET ONE (15:40)
[2019-02-18] MEDS ORDERED: ACETAMINOPHEN 325 MG TABLET PO ONE (15:42)
[2019-02-18 16:07] LABS: APPEARANCE,URINE CLOUDY; BILIRUBIN,URINE NEGATIVE (NEGATIVE); COLOR,URINE YELLOW; GLUCOSE, URINE NEGATIVE (NEGATIVE); KETONES,URINE NEGATIVE (NEGATIVE); LEUKOCYTE ESTERASE,URINE MODERATE (NEGATIVE); NITRITE,URINE NEGATIVE (NEGATIVE); PROTEIN,URINE 30 mg/dL (NEGATIVE); URINE SPECIFIC GRAVITY 1.028
[2019-02-18 16:08] LABS: URINE AMPHETAMINES SCREEN NEGATIVE; URINE BARBITURATES SCREEN NEGATIVE; URINE BENZODIAZEPINES SCREEN NEGATIVE; URINE COCAINE SCREEN NEGATIVE; URINE MARIJUANA (THC) SCREEN NEGATIVE; URINE METHADONE SCREEN NEGATIVE; URINE PHENCYCLIDINE SCREEN NEGATIVE
== END 2019-02-18 16:01 | disposition home or self-care (01) ==
LOC: LC 15:18
PROVIDERS: ATTEND Advanced Practice Midwife
DX: O26.892 Other specified pregnancy related conditions, second trimester (principal); M54.9 Dorsalgia, unspecified; Z3A.24 24 weeks gestation of pregnancy
CPT/HCPCS: 81001; 80307; J3490

== ENCOUNTER 2019-05-02 14:09 | Observation (INO) | payer MEDICAID ==
--- NOTE | 2019-05-02 15:06 | Non Stress Test Report ---
Non Stress Test Datetime Report Generated by CPN: 05/02/2019 15:05 DEMOGRAPHIC EGA NST: 35.3 INDICATION Indication for Study: Ordered by Provider MONITORING Monitor Explained: Monitor Explained; Test Explained; Patient Verbalized Understanding Time on Monitor: 05/02/2019 14:27 Time off Monitor: 05/02/2019 14:58 NST Duration: 31 NST INTERVENTIONS NST Interventions: PO Hydration; Reposition Patient Physician Notified NST: P Degroot CNM BABY A: [id number] BABY A Movement : Present Contraction Frequency : rare FHR Baseline : 135 Accelerations : 15X15 Decelerations : None Variability : Moderate 6-25bpm NST Review: Meets Criteria for Reactive NST NST Review and Verified By : V Monk RN NST Results: Reactive NST REPORT Report Trigger: Send Report
[2019-05-02 15:55] LABS: APPEARANCE,URINE SLIGHTLY-CLOUDY; BILIRUBIN,URINE NEGATIVE (NEGATIVE); COLOR,URINE AMBER; GLUCOSE, URINE NEGATIVE (NEGATIVE); KETONES,URINE 20 mg/dL (NEGATIVE); LEUKOCYTE ESTERASE,URINE TRACE (NEGATIVE); NITRITE,URINE NEGATIVE (NEGATIVE); PROTEIN,URINE 100 mg/dL (NEGATIVE); URINE SPECIFIC GRAVITY 1.025
[2019-05-02 16:09] LABS: URINE AMPHETAMINES SCREEN NEGATIVE; URINE BARBITURATES SCREEN NEGATIVE; URINE BENZODIAZEPINES SCREEN NEGATIVE; URINE COCAINE SCREEN NEGATIVE; URINE MARIJUANA (THC) SCREEN NEGATIVE; URINE METHADONE SCREEN NEGATIVE; URINE PHENCYCLIDINE SCREEN NEGATIVE
[2019-05-02 16:17] LABS: URINE PROTEIN 25.5 mg/dL (<12)
[2019-05-02 16:23] LABS: ABSOLUTE EOSINOPHILS # (AUTO) 0.1 10^3/uL (0.0-0.6); ABSOLUTE LYMPHOCYTES (AUTO) 2.2 10^3/uL (0.5-4.7); ABSOLUTE MONOCYTES (AUTO) 0.6 10^3/uL (0.1-1.4); ABSOLUTE NEUT (AUTO) 8.2 10^3/uL (1.7-8.2); BASOPHILS % (AUTO) 0.4 % (0-2); HEMATOCRIT 32.1 % (36.0-47.0); HEMOGLOBIN 10.2 g/dL (12.0-15.5); LYMPHOCYTES % (AUTO) 19.6 % (13-45); MEAN CORPUSCULAR HEMOGLOBIN 24.8 pg (27.0-33.4); MEAN CORPUSCULAR HGB CONC 31.8 g/dL (32.0-36.0); MEAN CORPUSCULAR VOLUME 78 fl (80-97); MONOCYTES % (AUTO) 5.4 % (3-13); PLATELET COUNT 325 10^3/uL (150-450); RED BLOOD COUNT 4.11 10^6/uL (3.72-5.28); RED CELL DISTRIBUTION WIDTH 17.4 % (11.5-14.0); SEGMENTED NEUTROPHILS % (AUTO) 73.6 % (42-78); TOTAL CELLS COUNTED % (AUTO) 100 %; WHITE BLOOD COUNT 11.1 10^3/uL (4.0-10.5)
[2019-05-02 16:26] LABS: UR PRO/CREAT RATIO RESULT 0.1 mg/mg (0.0-0.2); URINE CREATININE 371.7 mg/dL (16-327)
[2019-05-02 16:46] LABS: ALBUMIN 3.2 g/dL (3.5-5.0); ALKALINE PHOSPHATASE 154 U/L (38-126); ANION GAP 8 (5-19); ASPARTATE AMINO TRANSFERASE 18 U/L (14-36); BILIRUBIN,DIRECT 0.1 mg/dL (0.0-0.4); BILIRUBIN,TOTAL 0.5 mg/dL (0.2-1.3); BLOOD UREA NITROGEN 4 mg/dL (7-20); CALCIUM 8.7 mg/dL (8.4-10.2); CARBON DIOXIDE 22 mmol/L (22-30); CHLORIDE 106 mmol/L (98-107); GLUCOSE 71 mg/dL (75-110); POTASSIUM 3.8 mmol/L (3.6-5.0); TOTAL PROTEIN 6.5 g/dL (6.3-8.2); URIC ACID 2.7 mg/dL (2.5-6.2)
[2019-05-02] MEDS ORDERED: NICOTINE 7 MG/24 HR PATCH.TD24 TD PRN (17:00)
--- NOTE | 2019-05-02 17:22 | Admission Physical ---
Datetime Report Generated by CPN: 05/02/2019 17:22 CURRENT ADMISSION Chief Complaint: Signs/Symptoms Gestational HTN Chief Complaint Other: Sent from [facility] for PIH evaluation Indication for Induction: Not Applicable Admit Impression : , Intrauterine ; Observation/Evaluation Admit Plan: Observation/Evaluation ALLERGIES Medication Allergies: No Medication Allergies: No Known Allergies (02/18/2019) Latex: No Latex Allergies OBSTETRICAL HISTORY EDC: 06/03/2019 00:00 : 8 Para: 5 Term: 5 Cesareans: 1 Gestational Diabetes: No Rh Sensitization: No Incompetent Cervix: No KOLTON: No Infertility: No ART Treatment: No Uterine Anomaly: No IUGR: No Hx Previous C/S: Yes Macrosomia: No Hx Loss/Stillborn: No PIH: No Hx : No Placenta Previa/Abruption: No Depression/PP Depression: Yes Post Hemorrhage: No Current Procedures: None Obstetrical History Comments: 07/01/2011 vaginal term, pre eclampsia 10/29/12 vaginal term 02/01/2016 vaginal term 04/04/2017 vaginal term 01/29/2018 term SEE RECORDS Alcohol: No Marijuana : No Cocaine: No Other Illicit Drugs: No Cigarettes: Current Everyday Smoker. [id number] Cigarette Frequency: 5 - 10 per day Advised to Stop: Yes Cigarette Comments: 5-5 per day MEDICAL HISTORY Diabetes: No Blood Transfusion: No Pulmonary Disease (Asthma, TB): No Breast Disease: No Hypertension: No Recovery Rn Surgery: No Heart Disease: No Hosp/Surgery: Yes Autoimmune Disorder: No Anesthetic Complications: No Kidney Disease: No Neuro/Epilepsy: No Psychiatric Disorders: No Other Medical Diseases: No Hepatitis/Liver Disease: No Significant Family History: No Varicosities/Phlebitis: No Trauma/Violence : No Thyroid Dysfunction: No Medical History Comments: previous pre-eclampsia, previous suicidal thoughts, depression, CHILDBIRTH, C/SECTION INFECTIOUS HISTORY Gonorrhea: Yes Genital Herpes: No Chlamydia: Yes Tuberculosis: No Syphilis: No Hepatitis: No HIV/AIDS Exposure: No Rash or Viral Illness: No HPV: No Infectious History Comments: treated in 2010 PHYSICAL EXAM General: Normal HEENT: Normal Neurologic: Normal Thyroid: Deferred Heart: Normal Lungs: Normal Breast: Deferred Back: Normal Abdomen: Normal Genitourinary Exam: Deferred Extremities: Normal DTRs: Normal Pelvic Type: Adequate Vital Signs: Reviewed Details Vital Signs: Elevated MEMBRANES Membranes: Intact FETUS A EGA: 35.3 Monitoring: External US FHR- Baseline: 135 Variability: Moderate 6-25bpm FHR Category: Category I Presentation: Vertex Admit Comment: 35.3 wks Sent from [facility] via ambulance for PIH evaluation-patient unsteady, seemed out of it PICA-cornstarch and baby powder Hx depression Smoker Hx depression Hx alcohol and marijuana Closely-spaced Late onset care-23 wks C/S in for SGA in breech position Antepartum records in chart-no care outside [facility] INFORMED CONSENT Assignment: Michelle Elias MD Signature: with User ID: Garry : with User ID: Garry : I personally evaluated and examined the patient in conjunction with the MLP and agree with the assessment, treatment plan and disposition.
[2019-05-02] MEDS ORDERED: BETAMET ACET/BETAMET NA INJ 6 MG/1 ML ONE (17:30)
[2019-05-02] MEDS ORDERED: NIFEDIPINE 30 MG TAB.ER.24 PO ONE (17:30)
[2019-05-02] MEDS: NIFEDIPINE 30 MG TAB.ER.24 PO SCH (17:34)
[2019-05-02] MEDS ORDERED: BETAMET ACET/BETAMET NA INJ 6 MG/1 ML IM SCH (18:00)
[2019-05-02] MEDS ORDERED: ONDANSETRON HCL INJ/PF 4 MG/2 ML SDV IV PRN (20:20)
[2019-05-02] MEDS ORDERED: ONDANSETRON HCL INJ/PF 4 MG/2 ML SDV ONE (20:20)
[2019-05-02] MEDS ORDERED: ZOLPIDEM TARTRATE 5 MG TABLET PO ONE (23:45)
[2019-05-02] MEDS ORDERED: FAMOTIDINE INJ/PF 20 MG/2 ML SDV IV ONE (23:45)
[2019-05-02] MEDS ORDERED: ONDANSETRON HCL INJ/PF 4 MG/2 ML SDV IV ONE (23:45)
[2019-05-03] MEDS ORDERED: ACETAMINOPHEN 325 MG TABLET PO ONE (14:09)
--- NOTE | 2019-05-03 14:36 | PDOC PROGRESS REPORT ---
Subjective Progress Note for:: 05/03/19 Subjective:: Doing well today. No complaints . Denies concerns overnight. Good FM. During assessment, when asked about CAMARA patient reports she does feel mild CAMARA- frontal that is 4/10 severity. Has not tried medication for this. States, " I feel like I need to smoke". Denies CP, SOB, RUQ pain, n/v. Good FM. NST currently which is reactive. Reason For Visit: PRE E EVAL/WORK UP/ 24 HOUR URINE Physical Exam - Physical Exam Vital Signs: Temp Pulse Resp BP Pulse Ox 97.7 F 108 H 16 167/99 H 97 05/03/19 12:25 05/03/19 12:25 05/03/19 12:25 05/03/19 12:25 05/03/19 12:25 Intake & Output 05/02/19 05/03/19 05/04/19 06:59 06:59 06:59 Intake Total 500 Balance 500 Weight 111.8 kg General appearance: PRESENT: no acute distress, cooperative Respiratory exam: PRESENT: clear to auscultation ayan Cardiovascular exam: PRESENT: RRR, +S1, +S2 Pulses: PRESENT: +2 pedal pulses bilateral, other - No clonus. Reflexes 1/4 patellar GI/Abdominal exam: PRESENT: normal bowel sounds, other - No tenderness or organomegally Result Laboratory Results: 05/02/19 16:10 05/02/19 16:10 05/02/19 05/02/19 05/02/19 15:00 16:10 16:10 WBC 11.1 H RBC 4.11 Hgb 10.2 L Hct 32.1 L MCV 78 L MCH 24.8 L MCHC 31.8 L RDW 17.4 H Plt Count 325 Seg Neutrophils % 73.6 Sodium 135.9 L Potassium 3.8 Chloride 106 Carbon Dioxide 22 Anion Gap 8 BUN 4 L Creatinine 0.61 Est GFR ( Amer) > 60 Glucose 71 L Uric Acid 2.7 Calcium 8.7 Total Bilirubin 0.5 AST 18 Alkaline Phosphatase 154 H Total Protein 6.5 Albumin 3.2 L Urine Color KAYODE Urine Appearance SLIGHTLY-CLOUDY Urine pH 6.0 Ur Specific [place] 1.025 Urine Protein 100 H Urine Glucose (UA) NEGATIVE Urine Ketones 20 H Urine Blood NEGATIVE Urine Nitrite NEGATIVE Ur Leukocyte Esterase TRACE H Urine WBC (Auto) 5 Urine RBC (Auto) 1 Assessment & Plan - Diagnosis (1) PIH ( induced hypertension), antepartum Is this a current diagnosis for this admission?: Yes (2) Breech presentation of fetus delivered Is this a current diagnosis for this admission?: Yes - Plan Summary Plan Summary: 33 yo at 35.4 wks DINO who is inpatient for elevated blood pressures and undergoing 24 urine evaluation to rule out preeclampsia. -Exam today negative. -Mild CAMARA, will give tylenol. -B/P since admit ranging 135-150 systolic and diastolic of 66-76. -NST Cat 1 -Discussed plan with her and mother. Continue serial b/p, 24 urine collection and BMZ at 1800 today which will be her second dose. -Desires nicotine patch-smokes 1 PPD at home. Nicotine patch ordered.
[2019-05-03] MEDS: NICOTINE 21 MG/24 HR PATCH.TD24 TD SCH (16:07)
[2019-05-03] MEDS: NIFEDIPINE 30 MG TAB.ER.24 PO SCH (17:21)
[2019-05-03 17:46] LABS: HEMATOCRIT 30.4 % (36.0-47.0); HEMOGLOBIN 9.7 g/dL (12.0-15.5); MEAN CORPUSCULAR HEMOGLOBIN 25.3 pg (27.0-33.4); MEAN CORPUSCULAR HGB CONC 32.1 g/dL (32.0-36.0); MEAN CORPUSCULAR VOLUME 79 fl (80-97); PLATELET COUNT 305 10^3/uL (150-450); RED BLOOD COUNT 3.85 10^6/uL (3.72-5.28); RED CELL DISTRIBUTION WIDTH 17.5 % (11.5-14.0); WHITE BLOOD COUNT 20.7 10^3/uL (4.0-10.5)
[2019-05-03] MEDS ORDERED: BETAMET ACET/BETAMET NA INJ 6 MG/1 ML IM SCH (18:00)
[2019-05-03 18:07] LABS: ALBUMIN 3.2 g/dL (3.5-5.0); ALKALINE PHOSPHATASE 155 U/L (38-126); ANION GAP 9 (5-19); ASPARTATE AMINO TRANSFERASE 19 U/L (14-36); BILIRUBIN,DIRECT 0.1 mg/dL (0.0-0.4); BILIRUBIN,TOTAL 0.4 mg/dL (0.2-1.3); BLOOD UREA NITROGEN 8 mg/dL (7-20); CALCIUM 9.1 mg/dL (8.4-10.2); CARBON DIOXIDE 19 mmol/L (22-30); CHLORIDE 108 mmol/L (98-107); GLUCOSE 106 mg/dL (75-110); POTASSIUM 4.1 mmol/L (3.6-5.0); TOTAL PROTEIN 6.5 g/dL (6.3-8.2); URIC ACID 2.5 mg/dL (2.5-6.2)
[2019-05-03 18:14] LABS: ABSOLUTE LYMPHOCYTES# (MANUAL) 1.2 10^3/uL (0.5-4.7); BASOPHILS % (MANUAL) 0 % (0-2); EOSINOPHILS % (MANUAL) 1 % (0-6); LYMPHOCYTES % (MANUAL) 6 % (13-45); MONOCYTES % (MANUAL) 5 % (3-13); SEGMENTED NEUTROPHILS % (MAN) 88 % (42-78); TOTAL CELLS COUNTED 100
[2019-05-03 18:15] LABS: ANISOCYTOSIS 1+; POLYCHROMASIA SLIGHT
[2019-05-03 18:16] LABS: OVALOCYTES SLIGHT; PLATELET COMMENT ADEQUATE; PLATELET LARGE PRESENT
[2019-05-03 18:26] LABS: URINE CREATININE 238.3 mg/dL (16-327)
[2019-05-03 20:47] LABS: URINE PROTEIN 18.2 mg/dL (<12)
[2019-05-03 20:48] LABS: 24 HOUR URINE PROTEIN RESULT 146 mg/day (42-225)
[2019-05-03] MEDS ORDERED: LABETALOL HCL INJ 20 MG/4 ML DISP.SYRIN IV ONE ×2 (21:29→21:45)
[2019-05-03] MEDS: LABETALOL HCL 200 MG TABLET PO SCH (21:40)
[2019-05-03] MEDS ORDERED: ZOLPIDEM TARTRATE 5 MG TABLET PO SCH (22:00)
[2019-05-04] MEDS: LABETALOL HCL 200 MG TABLET PO SCH (05:26)
[2019-05-04] MEDS: NICOTINE 21 MG/24 HR PATCH.TD24 TD SCH (09:48)
--- NOTE | 2019-05-04 10:03 | PDOC DISCHARGE SUMMARY ---
Impression - Admit/DC Date/PCP Admission Date/Primary Care Provider: 05/02/19 17:23 GERALDO PUGH CNM Discharge Date: 05/04/19 - Discharge Diagnosis (1) PIH ( induced hypertension), antepartum Is this a current diagnosis for this admission?: Yes - Assessment Summary: Pt does not have preeclampsia and will be sent home with followup in the office later in the week. - Additional Information Resuscitation Status: Full Code Discharge Diet: As Tolerated Discharge Activity: Activity As Tolerated Referrals: GERALDO PUGH CNM [Primary Care Provider] - Prescriptions: Nifedipine [Procardia XL 30 mg Tablet] 30 mg PO QPM #30 tab.er.24 Home Medications: 95/Iron Fum/Folic/Dha [ + Dha Combo Pack] 1 tab PO DAILY 01/21/19 Nifedipine [Procardia XL 30 mg Tablet] 30 mg PO QPM #30 tab.er.24 05/04/19 History of Present Illiness History of Present Illness: KRISTA GALVEZ is a 33 year old female Physical Exam - Physical Exam Vital Signs: Temp Pulse Resp BP Pulse Ox 97.9 F 78 18 120/69 97 05/04/19 08:36 05/04/19 08:36 05/04/19 08:36 05/04/19 08:36 05/04/19 08:36 Intake & Output 05/03/19 05/04/19 05/05/19 06:59 06:59 06:59 Intake Total 500 1044 Balance 500 1044 Weight 111.8 kg Results Laboratory Results: WBC 20.7 10^3/uL (4.0-10.5) H 05/03/19 17:07 RBC 3.85 10^6/uL (3.72-5.28) 05/03/19 17:07 Hgb 9.7 g/dL (12.0-15.5) L 05/03/19 17:07 Hct 30.4 % (36.0-47.0) L 05/03/19 17:07 MCV 79 fl (80-97) L 05/03/19 17:07 MCH 25.3 pg (27.0-33.4) L 05/03/19 17:07 MCHC 32.1 g/dL (32.0-36.0) 05/03/19 17:07 RDW 17.5 % (11.5-14.0) H 05/03/19 17:07 Plt Count 305 10^3/uL (150-450) 05/03/19 17:07 Lymph % (Auto) Not Reportable 05/03/19 17:07 [place] % (Auto) Not Reportable 05/03/19 17:07 Eos % (Auto) Not Reportable 05/03/19 17:07 Baso % (Auto) Not Reportable 05/03/19 17:07 Absolute Neuts (auto) Not Reportable 05/03/19 17:07 Absolute Lymphs (auto) Not Reportable 05/03/19 17:07 Absolute Monos (auto) Not Reportable 05/03/19 17:07 Absolute Eos (auto) Not Reportable 05/03/19 17:07 Absolute Basos (auto) Not Reportable 05/03/19 17:07 Total Counted 100 05/03/19 17:07 Seg Neutrophils % Not Reportable 05/03/19 17:07 Seg Neuts % (Manual) 88 % (42-78) H 05/03/19 17:07 Lymphocytes % (Manual) 6 % (13-45) L 05/03/19 17:07 Monocytes % (Manual) 5 % (3-13) 05/03/19 17:07 Eosinophils % (Manual) 1 % (0-6) 05/03/19 17:07 Basophils % (Manual) 0 % (0-2) 05/03/19 17:07 Abs Neuts (Manual) 18.2 10^3/uL (1.7-8.2) H 05/03/19 17:07 Abs Lymphs (Manual) 1.2 10^3/uL (0.5-4.7) 05/03/19 17:07 Abs Monocytes (Manual) 1.0 10^3/uL (0.1-1.4) 05/03/19 17:07 Absolute Eos (Manual) 0.2 10^3/uL (0.0-0.6) 05/03/19 17:07 Abs Basophils (Manual) 0.0 10^3/uL (0.0-0.2) 05/03/19 17:07 Large Platelets PRESENT 05/03/19 17:07 Platelet Comment ADEQUATE 05/03/19 17:07 Polychromasia SLIGHT 05/03/19 17:07 Anisocytosis 1+ 05/03/19 17:07 Microcytosis SLIGHT 05/03/19 17:07 Ovalocytes SLIGHT 05/03/19 17:07 Sodium 135.6 mmol/L (137-145) L 05/03/19 17:07 Potassium 4.1 mmol/L (3.6-5.0) 05/03/19 17:07 Chloride 108 mmol/L (98-107) H 05/03/19 17:07 Carbon Dioxide 19 mmol/L (22-30) L 05/03/19 17:07 Anion Gap 9 (5-19) 05/03/19 17:07 BUN 8 mg/dL (7-20) 05/03/19 17:07 Creatinine 0.62 mg/dL (0.52-1.25) 05/03/19 17:07 Est GFR ( Amer) > 60 (>60) 05/03/19 17:07 Est GFR (MDRD) Non-Af > 60 (>60) 05/03/19 17:07 Glucose 106 mg/dL (75-110) 05/03/19 17:07 Uric Acid 2.5 mg/dL (2.5-6.2) 05/03/19 17:07 Calcium 9.1 mg/dL (8.4-10.2) 05/03/19 17:07 Total Bilirubin 0.4 mg/dL (0.2-1.3) 05/03/19 17:07 Direct Bilirubin 0.1 mg/dL (0.0-0.4) 05/03/19 17:07 Neonat Total Bilirubin Not Reportable 05/03/19 17:07 Neonat Direct Bilirubin Not Reportable 05/03/19 17:07 Neonat Indirect Bili Not Reportable 05/03/19 17:07 AST 19 U/L (14-36) 05/03/19 17:07 ALT 14 U/L (<35) 05/03/19 17:07 Alkaline Phosphatase 155 U/L (38-126) H 05/03/19 17:07 Lactate Dehydrogenase 184 U/L (120-246) 05/03/19 17:07 Total Protein 6.5 g/dL (6.3-8.2) 05/03/19 17:07 Albumin 3.2 g/dL (3.5-5.0) L 05/03/19 17:07 Urine Color KAYODE 05/02/19 15:00 Urine Appearance SLIGHTLY-CLOUDY 05/02/19 15:00 Urine pH 6.0 (5.0-9.0) 05/02/19 15:00 Ur Specific [place] 1.025 05/02/19 15:00 Urine Protein 100 mg/dL (NEGATIVE) H 05/02/19 15:00 Urine Glucose (UA) NEGATIVE mg/dL (NEGATIVE) 05/02/19 15:00 Urine Ketones 20 mg/dL (NEGATIVE) H 05/02/19 15:00 Urine Blood NEGATIVE (NEGATIVE) 05/02/19 15:00 Urine Nitrite NEGATIVE (NEGATIVE) 05/02/19 15:00 Urine Bilirubin NEGATIVE (NEGATIVE) 05/02/19 15:00 Urine Urobilinogen 2.0 mg/dL (<2.0) H 05/02/19 15:00 Ur Leukocyte Esterase TRACE (NEGATIVE) H 05/02/19 15:00 Urine WBC (Auto) 5 /HPF 05/02/19 15:00 Urine RBC (Auto) 1 /HPF 05/02/19 15:00 Squamous Epi Cells Auto 3 /HPF 05/02/19 15:00 Urine Mucus (Auto) MANY /LPF 05/02/19 15:00 Ur 24 Hour Volume 800 mL 05/03/19 17:15 Urine Creatinine 238.3 mg/dL (16-327) 05/02/19 17:15 Ur Creatinine mg/24hr 1.9 mg/day (0.8-2.0) 05/02/19 17:15 Ur Total Protein 24 Hr 146 mg/day (42-225) 05/03/19 17:15 Protein/Creatinin Ratio 0.1 mg/mg (0.0-0.2) 05/02/19 15:05 Urine Total Protein 18.2 mg/dL (<12) H 05/03/19 17:15 Urine Ascorbic Acid NEGATIVE (NEGATIVE) 05/02/19 15:00 Urine Opiates Screen NEGATIVE 05/02/19 15:00 Urine Methadone Screen NEGATIVE 05/02/19 15:00 Ur Barbiturates Screen NEGATIVE 05/02/19 15:00 Ur Phencyclidine Scrn NEGATIVE 05/02/19 15:00 Ur Amphetamines Screen NEGATIVE 05/02/19 15:00 U Benzodiazepines Scrn NEGATIVE 05/02/19 15:00 Urine Cocaine Screen NEGATIVE 05/02/19 15:00 U Marijuana (THC) Screen NEGATIVE 05/02/19 15:00 Stroke Is this a Stroke Patient?: No Acute Heart Failure - Is this a Heart Failure Patient?: No
[2019-05-04 10:35] VITALS: BP 116/56
== END 2019-05-04 11:02 | disposition home or self-care (01) ==
LOC: LC 14:09 → LR 17:23 → 2N 21:18
PROVIDERS: ADMIT Student in an Organized Health Care Education/Training Program; ATTEND Student in an Organized Health Care Education/Training Program
DX: O13.3 Gestational [pregnancy-induced] hypertension without significant proteinuria, third trimester (principal); O32.1XX0 Maternal care for breech presentation, not applicable or unspecified; O99.333 Smoking (tobacco) complicating pregnancy, third trimester; F17.210 Nicotine dependence, cigarettes, uncomplicated; Z3A.35 35 weeks gestation of pregnancy; Z87.59 Personal history of other complications of pregnancy, childbirth and the puerperium
CPT/HCPCS: 59025; 36415 ×2; 82570 ×2; 83615 ×2; 84156 ×2; 84550 ×2; 85025 ×2; 80053 ×2; 81001; 87081; 80307; G0378 ×4; J3490 ×9; J0702 ×2; J2405 ×2; S0028

== ENCOUNTER 2019-05-30 04:42 | Inpatient (IN) | payer MEDICAID ==
[2019-05-30 05:13] LABS: APPEARANCE,URINE SLIGHTLY-CLOUDY; BILIRUBIN,URINE NEGATIVE (NEGATIVE); COLOR,URINE RED; GLUCOSE, URINE NEGATIVE (NEGATIVE); KETONES,URINE NEGATIVE (NEGATIVE); LEUKOCYTE ESTERASE,URINE SMALL (NEGATIVE); NITRITE,URINE NEGATIVE (NEGATIVE); PROTEIN,URINE 30 mg/dL (NEGATIVE); UROBILINOGEN,URINE NEGATIVE mg/dL (<2.0)
[2019-05-30 05:34] LABS: URINE AMPHETAMINES SCREEN NEGATIVE; URINE BARBITURATES SCREEN NEGATIVE; URINE BENZODIAZEPINES SCREEN NEGATIVE; URINE COCAINE SCREEN NEGATIVE; URINE MARIJUANA (THC) SCREEN NEGATIVE; URINE METHADONE SCREEN NEGATIVE; URINE PHENCYCLIDINE SCREEN NEGATIVE
[2019-05-30 07:14] LABS: ABSOLUTE EOSINOPHILS # (AUTO) 0.1 10^3/uL (0.0-0.6); ABSOLUTE LYMPHOCYTES (AUTO) 1.9 10^3/uL (0.5-4.7); ABSOLUTE MONOCYTES (AUTO) 0.6 10^3/uL (0.1-1.4); ABSOLUTE NEUT (AUTO) 7.5 10^3/uL (1.7-8.2); BASOPHILS % (AUTO) 0.3 % (0-2); HEMATOCRIT 32.2 % (36.0-47.0); HEMOGLOBIN 10.3 g/dL (12.0-15.5); LYMPHOCYTES % (AUTO) 18.7 % (13-45); MEAN CORPUSCULAR HGB CONC 32.1 g/dL (32.0-36.0); MEAN CORPUSCULAR VOLUME 78 fl (80-97); MONOCYTES % (AUTO) 6.3 % (3-13); PLATELET COUNT 305 10^3/uL (150-450); RED BLOOD COUNT 4.14 10^6/uL (3.72-5.28); RED CELL DISTRIBUTION WIDTH 17.8 % (11.5-14.0); SEGMENTED NEUTROPHILS % (AUTO) 73.7 % (42-78); TOTAL CELLS COUNTED % (AUTO) 100 %; WHITE BLOOD COUNT 10.2 10^3/uL (4.0-10.5)
[2019-05-30] MEDS ORDERED: NIFEDIPINE 30 MG TAB.ER.24 PO ONE ×3 (07:25→18:00)
[2019-05-30 07:32] LABS: ALBUMIN 3.1 g/dL (3.5-5.0); ALKALINE PHOSPHATASE 189 U/L (38-126); ANION GAP 9 (5-19); ASPARTATE AMINO TRANSFERASE 18 U/L (14-36); BILIRUBIN,DIRECT 0.1 mg/dL (0.0-0.4); BILIRUBIN,TOTAL 0.3 mg/dL (0.2-1.3); BLOOD UREA NITROGEN 7 mg/dL (7-20); CALCIUM 8.6 mg/dL (8.4-10.2); CARBON DIOXIDE 19 mmol/L (22-30); CHLORIDE 109 mmol/L (98-107); GLUCOSE 75 mg/dL (75-110); POTASSIUM 3.8 mmol/L (3.6-5.0); TOTAL PROTEIN 6.5 g/dL (6.3-8.2)
--- NOTE | 2019-05-30 07:53 | Admission Physical ---
Datetime Report Generated by CPN: 05/30/2019 07:52 CURRENT ADMISSION Hx Assessment: The History has been Reviewed and is Current Chief Complaint: Uterine Contractions; Signs/Symptoms Gestational HTN Chief Complaint Other: Presented for contractions, spotting. She has history of cHTN this on Procardia 30mg XL daily but did not take yesterday. No CAMARA, CP, SOB, RUQ pain, vision changes or n/v. Preg complicated further by hx of PCS last 15 months ago and hx of VD x 4 prior to that. Indication for Induction: Not Applicable Admit Impression : Term, Intrauterine ; Active Labor; Admit Impression- Other: Admit d/t cHTN with elevated B/Ps at 39+ wks EGA -Plan delivery. Patient trying to decide if wants or RCS. DIscussed in detail Admit Plan: Admit to Unit ALLERGIES Medication Allergies: No Medication Allergies: No Known Allergies (05/02/2019) Latex: Latex Allergies OBSTETRICAL HISTORY EDC: 06/03/2019 00:00 : 8 Para: 5 Term: 5 SAB: 2 Cesareans: 1 Gestational Diabetes: Yes Rh Sensitization: No Incompetent Cervix: No KOLTON: No Infertility: No ART Treatment: No Uterine Anomaly: No IUGR: No Hx Previous C/S: Yes Macrosomia: No Hx Loss/Stillborn: No PIH: Yes Hx : No Placenta Previa/Abruption: No Depression/PP Depression: Yes Post Hemorrhage: Yes Current Procedures: Ultrasound; NST Obstetrical History Comments: 07/01/2011 vaginal term, pre eclampsia 10/29/12 vaginal term 02/01/2016 vaginal term 04/04/2017 vaginal term-vaginal breech delivery, 13 minutes before head delivered 01/29/2018 term- baby transverse SEE RECORDS Alcohol: No Marijuana : No Cocaine: No Other Illicit Drugs: No Cigarettes: Current Everyday Smoker. [id number] Cigarette Frequency: 5 - 10 per day Advised to Stop: Yes Cigarette Comments: 5-5 per day MEDICAL HISTORY Diabetes: No Blood Transfusion: No Pulmonary Disease (Asthma, TB): No Breast Disease: No Hypertension: No Physical Therapy Director Surgery: No Heart Disease: No Hosp/Surgery: Yes Autoimmune Disorder: No Anesthetic Complications: No Kidney Disease: No Neuro/Epilepsy: No Psychiatric Disorders: No Other Medical Diseases: No Hepatitis/Liver Disease: No Significant Family History: No Varicosities/Phlebitis: No Trauma/Violence : No Thyroid Dysfunction: No Medical History Comments: previous pre-eclampsia, previous suicidal thoughts, depression, CHILDBIRTH, C/SECTION INFECTIOUS HISTORY Gonorrhea: Yes Genital Herpes: No Chlamydia: Yes Tuberculosis: No Syphilis: No Hepatitis: No HIV/AIDS Exposure: No Rash or Viral Illness: No HPV: No Infectious History Comments: treated in 2010 PHYSICAL EXAM General: Normal HEENT: Normal Neurologic: Normal Thyroid: Normal Heart: Normal Lungs: Normal Breast: Normal Back: Normal Abdomen: Normal Genitourinary Exam: Normal Extremities: Normal DTRs: Normal Pelvic Type: Adequate Vital Signs: Reviewed Details Vital Signs: Elevated B/Ps. PIH labs ordered VAGINAL EXAM Dilatation: 1 Effacement: 40 Station: -3 Contraction Comments: q 6-10 minutes MEMBRANES Pooling: Negative Membranes: Intact FETUS A EGA: 39.3 Monitoring: External US FHR- Baseline: 155 Variability: Moderate 6-25bpm Accelerations: 15X15 Decelerations: None FHR Category: Category I Presentation: Vertex Admit Comment: 39.3 wks here with CTX and vaginal spotting: latent labor? complicated by cHTN on Procardia 30mg XL daily, Hx of PCS 15 months ago and obesity -Admit to LDR, delivery indicated d/t cHTN and elevated B/P -PIH labs pending -NPO and IVFs -GBS negative - vs RCS discussed and patient is undecided currently. -Desires to talk with family and will advise. PLANS FOR LABOR AND DELIVERY Labor and Delivery: None Pain Management: None Feeding Preference: Both Benefit of Breast Feed Discussed: Yes Circumcision: Yes INFORMED CONSENT Informed Consent Obtained: Vaginal Delivery; Section Delivery; Vaginal After ; Risks, Benefits and Alternatives Discussed Assignment: Michelle Elias MD Signature: with User ID: [email or web address] : with User ID: [email or web address] : I personally evaluated and examined the patient in conjunction with the MLP and agree with the assessment, treatment plan and disposition.
[2019-05-30] MEDS ORDERED: NORMAL SALINE 250 ML IV PRN (08:12)
[2019-05-30 09:55] LABS: UR PRO/CREAT RATIO RESULT 0.2 mg/mg (0.0-0.2); URINE CREATININE 98.8 mg/dL (16-327)
[2019-05-30] MEDS ORDERED: ZOLPIDEM TARTRATE 5 MG TABLET PO PRN ×2 (09:59→17:15)
[2019-05-30] MEDS ORDERED: ACETAMINOPHEN 325 MG TABLET PO PRN ×2 (09:59→17:15)
[2019-05-30] MEDS ORDERED: MAG HYDROX/AL HYDROX/SIMETH SUSP 30 ML UDCUP PO PRN (09:59)
[2019-05-30] MEDS ORDERED: RINGERS SOLUTION,LACTATED 300 ML IV ONE (09:59)
[2019-05-30] MEDS ORDERED: RINGERS SOLUTION,LACTATED 1,000 ML IV PRN (09:59)
[2019-05-30] MEDS ORDERED: OXYTOCIN/NORMAL SALINE 20 UNIT/1,000 ML RTUINJ IV PRN ×2 (09:59→17:15)
[2019-05-30] MEDS ORDERED: LIDOCAINE 1% INJ-PF (10 MG/ML) 30 ML SDV ONE (10:00)
[2019-05-30] MEDS ORDERED: MISOPROSTOL 0.2 MG TABLET ONE (10:00)
[2019-05-30] MEDS ORDERED: OXYTOCIN 10 UNIT/ML VIAL ONE (10:00)
[2019-05-30] MEDS ORDERED: OXYTOCIN/NORMAL SALINE 20 UNIT/1,000 ML RTUINJ ONE (10:01)
[2019-05-30] MEDS ORDERED: EPHEDRINE SULFATE INJ 50 MG/1 ML AMPULE ONE (11:15)
[2019-05-30] MEDS ORDERED: HYDRALAZINE HCL INJ/PF 20 MG/1 ML SDV ONE (11:15)
[2019-05-30] MEDS ORDERED: FENTANYL/BUPIVACAINE/NS/PF 300 MCG/150 ML RTUINJ EPI ONE (11:16)
[2019-05-30] MEDS ORDERED: BUPIVACAINE HCL 0.25 % INJ/PF (2.5 MG/1 ML) 30 ML VIAL ONE (11:16)
[2019-05-30 11:37] LABS: CHLAM PCR NOT DETECTED (NOT DETECT)
[2019-05-30] MEDS ORDERED: HYDRALAZINE HCL INJ/PF 20 MG/1 ML SDV IV ONE (12:00)
[2019-05-30] MEDS ORDERED: ACETAMINOPHEN 325 MG TABLET ONE (14:58)
[2019-05-30] MEDS ORDERED: ONDANSETRON HCL INJ/PF 4 MG/2 ML SDV ONE (14:59)
[2019-05-30] MEDS ORDERED: ONDANSETRON HCL INJ/PF 4 MG/2 ML SDV IV PRN (15:02)
[2019-05-30] MEDS ORDERED: ACETAMINOPHEN 325 MG TABLET PO ONE (15:02)
[2019-05-30] MEDS ORDERED: LIDOCAINE 2% INJ-PF (20 MG/ML) 10 ML AMPUL ONE (15:24)
[2019-05-30] MEDS ORDERED: FENTANYL CITRATE INJ/PF 100 MCG/2 ML AMPUL ONE (16:59)
[2019-05-30] MEDS ORDERED: PROMETHAZINE HCL 25 MG SUPP.RECT PR PRN (17:15)
[2019-05-30] MEDS ORDERED: BENZOCAINE/MENTHOL AEROSOL SPRAY 56 ML TOP PRN (17:15)
[2019-05-30] MEDS ORDERED: DIPHENHYDRAMINE HCL 25 MG CAPSULE PO PRN (17:15)
[2019-05-30] MEDS ORDERED: ACETAMINOPHEN WITH CODEINE #3 TABLET PO PRN (17:15)
[2019-05-30] MEDS ORDERED: GLYCERIN/WITCH HAZEL LEAF 1 EACH MED..WIPE TP PRN (17:15)
[2019-05-30] MEDS ORDERED: MAGNESIUM HYDROXIDE SUSP 30 ML UDCUP PO PRN (17:15)
[2019-05-30] MEDS ORDERED: PSEUDOEPHEDRINE HCL 30 MG TABLET PO PRN (17:15)
[2019-05-30] MEDS ORDERED: NA PHOS,M-B/NA PHOS,DI-BA (ADULT) 133 ML ENEMA PR PRN (17:15)
[2019-05-30] MEDS ORDERED: PROMETHAZINE HCL INJ 25 MG/1 ML VIAL IV PRN (17:15)
[2019-05-30] MEDS ORDERED: MISOPROSTOL 0.2 MG TABLET PR PRN (17:15)
[2019-05-30] MEDS ORDERED: MEASLES,MUMPS&RUBELLA VACC/PF 0.5 ML VIAL SUBCUT PRN (17:15)
[2019-05-30] MEDS ORDERED: DIBUCAINE 1% OINTMENT 56 GM TP PRN (17:15)
[2019-05-30] MEDS ORDERED: PROMETHAZINE HCL 25 MG TABLET PO PRN (17:15)
[2019-05-30] MEDS ORDERED: DIPH/PERTUSS(ACELL)/TETANUS VAC/PF 0.5 ML SYR (>=10YO) IM PRN (17:15)
[2019-05-30] MEDS ORDERED: FENTANYL CITRATE INJ/PF 100 MCG/2 ML AMPUL IV PRN (17:18)
[2019-05-30] MEDS ORDERED: FERROUS SULFATE 325 MG TABLET PO ONE (18:00)
[2019-05-30] MEDS ORDERED: DOCUSATE SODIUM 100 MG CAPSULE ONE (18:00)
[2019-05-30] MEDS: NIFEDIPINE 30 MG TAB.ER.24 PO SCH (18:03)
[2019-05-30] MEDS: DOCUSATE SODIUM 100 MG CAPSULE PO SCH (18:03)
[2019-05-30] MEDS: FERROUS SULFATE 325 MG TABLET PO SCH (18:03)
--- NOTE | 2019-05-30 18:56 | Delivery Summary ---
Del Sum A-C Datetime Report Generated by CPN: 05/30/2019 18:56 DELIVERY PERSONNEL DELIVERY PERSONNEL: [id number] Delivery Doctor:: Michelle Elias MD Anesthesiologist:: Solitario Elizalde MD Labor and Delivery Nurse:: ASHOK Mathis Labor and Delivery Nurse:: ASHOK De La Cruz Nursery Nurse:: Vidhya Blanco RN Nursery Nurse:: eloisa torres Weight Engineer/CITY TAX AUDITOR: Cynthia Thomas, ST Additional Personnel: : CarlinPaula MATERNAL INFORMATION Medications During Delivery: fentanyl 75 mcg IVSP 300 ml pitocin bolus (Annotations: Data stored by CPN on behalf of user) Medications After Delivery: Pitocin Bolus-Please Comment; Pitocin Drip 20 Units/1000ml NSS; Cytotec 1000mcg Per Rectum/Vagina Estimated Blood Loss (ml): 200ml Delivery QBL: 200 Delivery QBL Comment: 200 Provider Comments: VMI delivered in OSMANI presentation. NO nuchal cord. Shoulders and body delivered without difficulty. Cord doubly clamped and cut. to maternal abdomen for NRP. Placenta delivered partially then remainder manually extracted due to partial avulsion of umbilical cord. crudee performed with no e/o remaining placenta. FF at U. 1000mcg cytotec MN given. Good Hemostasis. Mother and baby stable upon provider leaving the room. No perineal lacerations. LABOR SUMMARY EDC: 06/03/2019 00:00 No. Babies in Womb: 1 Labor Anesthesia: Epidural LABOR INFORMATION Reason for Induction: Chronic Primary/Essential HTN Onset of Labor: 05/30/2019 10:00 Complete Dilatation: 05/30/2019 16:50 Oxytocin: Induction Group B Beta Strep: 1 NO GROUP B STREPTOCOCCUS RECOVERED Steroids Given: None Reason Steroids Not Administered: Not Applicable MEMBRANES Membranes Rupture Method: Artificial Rupture of Membranes: 05/30/2019 13:11 Length of Rupture (hr): 3.72 Amniotic Fluid Color: Clear Amniotic Fluid Amount: Moderate Amniotic Fluid Odor: Normal STAGES OF LABOR Stage 1 hr: 6 Stage 1 min: 50 Stage 2 hr: 0 Stage 2 min: 4 Stage 3 hr: 0 Stage 3 min: 3 Total Time in Labor hr: 6 Total Time in Labor min: 57 VAGINAL DELIVERY Episiotomy: None Laceration #1: None Laceration Extension #1: N/A Laceration Repair: Not Applicable Sponge Count Correct: Yes Sharps Count Correct: Yes BABY A INFORMATION Infant Delivery Date/Time: 05/30/2019 16:54 Method of Delivery: Vaginal Born in Route : No : Successful Forceps: N/A Vacuum Extraction: N/A Shoulder Dystocia : No PRESENTATION/POSITION BABY A Presentation: Cephalic Cephalic Presentation: Vertex PLACENTA INFORMATION BABY A Placenta Delivery Time : 05/30/2019 16:57 Placenta Method of Delivery: Spontaneous Placenta Status: Delivered SCORES BABY A Heart Rate 1 min: >100 bpm Resp Effort 1 min: Good Cry Reflex Irritability 1 min: Cough or Sneeze or Pulls Away Muscle Tone 1 min: Active Motion Color 1 min: Blue/Pale Resuscitation Effort 1 min: Tactile Stimulation SCORE 1 MIN: 8 Heart Rate 5 min: >100 bpm Resp Effort 5 min: Good Cry Reflex Irritability 5 min: Cough or Sneeze or Pulls Away Muscle Tone 5 min: Active Motion Color 5 min: Blue/Pale Resuscitation Effort 5 min: Tactile Stimulation SCORE 5 MIN: 8 INFORMATION BABY A Gestational Age at Delivery: 39.0 Gestational Status: Full Term- 39- 40.6 Weeks Infant Condition : Stable Infant Sex: Male IDENTIFICATION BABY A Infant Verification Date/Time: 05/30/2019 17:20 ID Band Number: [id number] Mother's Name Verified: Yes Infant RN Verifying : MMilagro Perdomo, RN, S. Regi, RN WEIGHT/LENGTH BABY A Birthweight (gm): 2635 Weight (lb): 5 Infant Weight (oz): 13 Infant Length (in): 19.00 Infant Length (cm): 48.26 CORD INFORMATION BABY A No. Cord Vessels: 3 ASSESSMENT BABY A Complications: Multiple Variable Decels Physical Findings at Delivery: Within Normal Limits Respirations: Appears Normal Skin to Skin: Yes Coal Mine Inspector/ALS Called : No Infant Care By: Mahi Blanco RN Transferred To: Remains with Mother SIGNATURES Signature: with User ID: [email or web address] : I personally evaluated and examined the patient in conjunction with the MLP and agree with the assessment, treatment plan and disposition.
[2019-05-30] MEDS: ACETAMINOPHEN WITH CODEINE #3 TABLET PO PRN (20:51)
[2019-05-30] MEDS: FAMOTIDINE 20 MG TABLET PO SCH (21:07)
[2019-05-30] MEDS: IBUPROFEN 800 MG TABLET PO SCH (21:07)
[2019-05-31] MEDS: NIFEDIPINE 30 MG TAB.ER.24 PO SCH ×2 (06:29→17:03)
[2019-05-31 06:30] LABS: HEMATOCRIT 32.1 % (36.0-47.0); HEMOGLOBIN 10.1 g/dL (12.0-15.5); MEAN CORPUSCULAR HEMOGLOBIN 24.7 pg (27.0-33.4); MEAN CORPUSCULAR HGB CONC 31.5 g/dL (32.0-36.0); MEAN CORPUSCULAR VOLUME 78 fl (80-97); PLATELET COUNT 315 10^3/uL (150-450); RED CELL DISTRIBUTION WIDTH 18.2 % (11.5-14.0); WHITE BLOOD COUNT 13.7 10^3/uL (4.0-10.5)
[2019-05-31] MEDS: IBUPROFEN 800 MG TABLET PO SCH ×3 (06:30→21:57)
--- NOTE | 2019-05-31 08:50 | PDOC PROGRESS REPORT ---
Subjective-OB Progress Note for:: 05/31/19 Subjective: Doing well, OOB in halls walking, family at BS, bottle feeding Physical Exam (OB) Vital Signs: Temp Pulse Resp BP Pulse Ox 98.2 F 76 16 148/95 H 100 05/31/19 04:00 05/31/19 04:00 05/31/19 04:00 05/31/19 04:00 05/31/19 04:00 Intake & Output 05/30/19 05/31/19 06/01/19 06:59 06:59 06:59 Intake Total 650 Balance 650 Weight 114.8 kg - PIH/Pre-Eclampsia DTR's: 1 + Clonus: Negative Headache: Absent Epigastric Pain: No Visual Changes: No - Lochia Lochia Amount: Small 10-25 ml Lochia Color: Rubra/Red - Abdomen Description: Soft, Round Fundal Description: Firm, Midline Fundal Height: u/u - u/2 Objective-Diagnostic Laboratory: 05/31/19 05:32 05/30/19 06:54 05/31/19 05:32 WBC 13.7 H RBC 4.10 Hgb 10.1 L Hct 32.1 L MCV 78 L MCH 24.7 L MCHC 31.5 L RDW 18.2 H Plt Count 315 Assessment and Plan(PN) - Assessment and Plan (1) Vaginal after delivery Is this a current diagnosis for this admission?: Yes (2) Limited care Qualifiers: Trimester: second trimester Qualified Code(s): O09.32 - Supervision of with insufficient care, second trimester Is this a current diagnosis for this admission?: Yes (3) Chronic hypertension affecting Is this a current diagnosis for this admission?: Yes (4) PIH ( induced hypertension), antepartum Is this a current diagnosis for this admission?: Yes (5) Mental health impairment Is this a current diagnosis for this admission?: Yes - Time Spent with Patient Time with patient: Less than 15 minutes Medications reviewed and adjusted accordingly: Yes - Disposition Anticipated Discharge: Home Within: within 24 hours
[2019-05-31] MEDS: DOCUSATE SODIUM 100 MG CAPSULE PO SCH ×2 (09:32→17:03)
[2019-05-31] MEDS: ACETAMINOPHEN WITH CODEINE #3 TABLET PO PRN ×2 (09:32→20:12)
[2019-05-31] MEDS: FAMOTIDINE 20 MG TABLET PO SCH ×2 (09:32→21:57)
[2019-05-31] MEDS: FERROUS SULFATE 325 MG TABLET PO SCH ×2 (09:33→17:03)
[2019-05-31] MEDS: PRENATAL VITAMIN W DHA CAPSULE PO SCH (09:33)
[2019-05-31] MEDS: SENNOSIDES/DOCUSATE 8.6-50 MG 1 EACH TABLET PO SCH (09:33)
[2019-06-01] MEDS: IBUPROFEN 800 MG TABLET PO SCH (05:26)
[2019-06-01] MEDS: NIFEDIPINE 30 MG TAB.ER.24 PO SCH (05:26)
--- NOTE | 2019-06-01 09:09 | PDOC PROGRESS REPORT ---
Subjective-OB Progress Note for:: 06/01/19 Subjective: OOB in hlls and outside smoking, breast and bottle feeding, ambulating, voiding, ready to go home Physical Exam (OB) Vital Signs: Temp Pulse Resp BP Pulse Ox 98.3 F 77 18 141/93 H 99 06/01/19 07:40 06/01/19 07:40 06/01/19 07:40 06/01/19 07:40 06/01/19 07:40 Intake & Output 05/31/19 06/01/19 06/02/19 06:59 06:59 06:59 Intake Total 650 1000 Balance 650 1000 - PIH/Pre-Eclampsia DTR's: 1 + Clonus: Negative Headache: Absent Epigastric Pain: No Visual Changes: No - Lochia Lochia Amount: Small 10-25 ml Lochia Color: Rubra/Red - Abdomen Description: Soft, Round Hernia Present: No Fundal Description: Firm, Midline Fundal Height: u/u - u/2 Objective-Diagnostic Laboratory: 05/31/19 05:32 05/30/19 06:54 Assessment and Plan(PN) - Assessment and Plan (1) Vaginal after delivery Is this a current diagnosis for this admission?: Yes (2) Limited care Qualifiers: Trimester: second trimester Qualified Code(s): O09.32 - Supervision of with insufficient care, second trimester Is this a current diagnosis for this admission?: Yes (3) Chronic hypertension affecting Is this a current diagnosis for this admission?: Yes (4) PIH ( induced hypertension), antepartum Is this a current diagnosis for this admission?: Yes (5) Mental health impairment Is this a current diagnosis for this admission?: Yes - Time Spent with Patient Time with patient: Less than 15 minutes Smoking Education Provided: Over 5 minutes Medications reviewed and adjusted accordingly: Yes - Disposition Anticipated Discharge: Home Within: within 24 hours - discussed smoking cessation and not smoking around baby
--- NOTE | 2019-06-01 09:15 | PDOC DISCHARGE SUMMARY ---
Impression - Admit/DC Date/PCP Admission Date/Primary Care Provider: 05/30/19 07:56 GERALDO PUGH CNM Discharge Date: 06/01/19 - Discharge Diagnosis (1) Vaginal after delivery Is this a current diagnosis for this admission?: Yes (2) Limited care Is this a current diagnosis for this admission?: Yes (3) Chronic hypertension affecting Is this a current diagnosis for this admission?: Yes (4) PIH ( induced hypertension), antepartum Is this a current diagnosis for this admission?: Yes (5) Mental health impairment Is this a current diagnosis for this admission?: Yes - Additional Information Discharge Diet: As Tolerated, Regular Discharge Activity: Activity As Tolerated, No Lifting Over 10 Pounds, No Lifting/Push/Pulling, Pelvic Rest Referrals: [facility] [Provider Group] ([facility] on Monday yo check BP) Prescriptions: Nifedipine [Procardia XL 30 mg Tablet] 30 mg PO Q12A #60 tab.er.24 Home Medications: 95/Iron Fum/Folic/Dha [ + Dha Combo Pack] 1 tab PO DAILY 01/21/19 Nifedipine [Procardia XL 30 mg Tablet] 30 mg PO Q12A #60 tab.er.24 06/01/19 HPI Gestational Age: 39 Reason(s) for Admission: Induction of Labor, PIH, Group B Strep Positive Admission Note: chronic hypertension Procedures: NST, Ultrasound Intrapartum Procedure(s): Spontaneous Vaginal Delivery Hospital Course Hospital Course: routine Results Laboratory Results: WBC 13.7 10^3/uL (4.0-10.5) H 05/31/19 05:32 RBC 4.10 10^6/uL (3.72-5.28) 05/31/19 05:32 Hgb 10.1 g/dL (12.0-15.5) L 05/31/19 05:32 Hct 32.1 % (36.0-47.0) L 05/31/19 05:32 MCV 78 fl (80-97) L 05/31/19 05:32 MCH 24.7 pg (27.0-33.4) L 05/31/19 05:32 MCHC 31.5 g/dL (32.0-36.0) L 05/31/19 05:32 RDW 18.2 % (11.5-14.0) H 05/31/19 05:32 Plt Count 315 10^3/uL (150-450) 05/31/19 05:32 Lymph % (Auto) 18.7 % (13-45) 05/30/19 06:54 Gage % (Auto) 6.3 % (3-13) 05/30/19 06:54 Eos % (Auto) 1.0 % (0-6) 05/30/19 06:54 Baso % (Auto) 0.3 % (0-2) 05/30/19 06:54 Absolute Neuts (auto) 7.5 10^3/uL (1.7-8.2) 05/30/19 06:54 Absolute Lymphs (auto) 1.9 10^3/uL (0.5-4.7) 05/30/19 06:54 Absolute Monos (auto) 0.6 10^3/uL (0.1-1.4) 05/30/19 06:54 Absolute Eos (auto) 0.1 10^3/uL (0.0-0.6) 05/30/19 06:54 Absolute Basos (auto) 0.0 10^3/uL (0.0-0.2) 05/30/19 06:54 Seg Neutrophils % 73.7 % (42-78) 05/30/19 06:54 Sodium 136.6 mmol/L (137-145) L 05/30/19 06:54 Potassium 3.8 mmol/L (3.6-5.0) 05/30/19 06:54 Chloride 109 mmol/L (98-107) H 05/30/19 06:54 Carbon Dioxide 19 mmol/L (22-30) L 05/30/19 06:54 Anion Gap 9 (5-19) 05/30/19 06:54 BUN 7 mg/dL (7-20) 05/30/19 06:54 Creatinine 0.67 mg/dL (0.52-1.25) 05/30/19 06:54 Est GFR ( Amer) > 60 (>60) 05/30/19 06:54 Est GFR (MDRD) Non-Af > 60 (>60) 05/30/19 06:54 Glucose 75 mg/dL (75-110) 05/30/19 06:54 Uric Acid 3.0 mg/dL (2.5-6.2) 05/30/19 06:54 Calcium 8.6 mg/dL (8.4-10.2) 05/30/19 06:54 Total Bilirubin 0.3 mg/dL (0.2-1.3) 05/30/19 06:54 Direct Bilirubin 0.1 mg/dL (0.0-0.4) 05/30/19 06:54 Neonat Total Bilirubin Not Reportable 05/30/19 06:54 Neonat Direct Bilirubin Not Reportable 05/30/19 06:54 Neonat Indirect Bili Not Reportable 05/30/19 06:54 AST 18 U/L (14-36) 05/30/19 06:54 ALT 10 U/L (<35) 05/30/19 06:54 Alkaline Phosphatase 189 U/L (38-126) H 05/30/19 06:54 Lactate Dehydrogenase 180 U/L (120-246) 05/30/19 06:54 Total Protein 6.5 g/dL (6.3-8.2) 05/30/19 06:54 Albumin 3.1 g/dL (3.5-5.0) L 05/30/19 06:54 Urine Color RED 05/30/19 04:52 Urine Appearance SLIGHTLY-CLOUDY 05/30/19 04:52 Urine pH 6.0 (5.0-9.0) 05/30/19 04:52 Ur Specific [place] 1.010 05/30/19 04:52 Urine Protein 30 mg/dL (NEGATIVE) H 05/30/19 04:52 Urine Glucose (UA) NEGATIVE mg/dL (NEGATIVE) 05/30/19 04:52 Urine Ketones NEGATIVE mg/dL (NEGATIVE) 05/30/19 04:52 Urine Blood LARGE (NEGATIVE) H 05/30/19 04:52 Urine Nitrite NEGATIVE (NEGATIVE) 05/30/19 04:52 Urine Bilirubin NEGATIVE (NEGATIVE) 05/30/19 04:52 Urine Urobilinogen NEGATIVE mg/dL (<2.0) 05/30/19 04:52 Ur Leukocyte Esterase SMALL (NEGATIVE) H 05/30/19 04:52 Urine Creatinine 98.8 mg/dL (16-327) 05/30/19 08:50 Protein/Creatinin Ratio 0.2 mg/mg (0.0-0.2) 05/30/19 08:50 Urine Total Protein 19.0 mg/dL (<12) H 05/30/19 08:50 Urine Ascorbic Acid NEGATIVE (NEGATIVE) 05/30/19 04:52 Urine Opiates Screen NEGATIVE 05/30/19 04:52 Urine Methadone Screen NEGATIVE 05/30/19 04:52 Ur Barbiturates Screen NEGATIVE 05/30/19 04:52 Ur Phencyclidine Scrn NEGATIVE 05/30/19 04:52 Ur Amphetamines Screen NEGATIVE 05/30/19 04:52 U Benzodiazepines Scrn NEGATIVE 05/30/19 04:52 Urine Cocaine Screen NEGATIVE 05/30/19 04:52 U Marijuana (THC) Screen NEGATIVE 05/30/19 04:52 RPR NONREACTIVE (NONREACTIVE) 05/30/19 06:54 Chlamydia DNA (PCR) NOT DETECTED (NOT DETECT) 05/30/19 04:52 N.gonorrhoeae DNA (PCR) NOT DETECTED (NOT DETECT) 05/30/19 04:52 Blood Type A POSITIVE 05/30/19 06:54 Antibody Screen NEGATIVE 05/30/19 06:54 Crossmatch See Detail 05/30/19 06:54 Plan Health Concerns: chronic hypertension Plan of Treatment: D/C home, take BP medication Goals: Maintain BP within parameters, stop smoking
[2019-06-01] MEDS: FAMOTIDINE 20 MG TABLET PO SCH (09:46)
[2019-06-01] MEDS: FERROUS SULFATE 325 MG TABLET PO SCH (09:46)
[2019-06-01] MEDS: DOCUSATE SODIUM 100 MG CAPSULE PO SCH (09:46)
[2019-06-01] MEDS: SENNOSIDES/DOCUSATE 8.6-50 MG 1 EACH TABLET PO SCH (09:46)
[2019-06-01] MEDS: PRENATAL VITAMIN W DHA CAPSULE PO SCH (09:46)
[2019-06-01 11:38] VITALS: BP 131/77
== END 2019-06-01 13:49 | disposition home or self-care (01) | DRG 807 ==
LOC: LC 04:42 → LR 07:56 → 2S 18:44
PROVIDERS: ADMIT Student in an Organized Health Care Education/Training Program; ATTEND Student in an Organized Health Care Education/Training Program
PROC: 10E0XZZ Delivery of Products of Conception, External Approach (ICD-10-PCS; principal; 2019-05-30)
PROC: 3E033VJ Introduction of Other Hormone into Peripheral Vein, Percutaneous Approach (ICD-10-PCS; 2019-05-30)
PROC: 10907ZC Drainage of Amniotic Fluid, Therapeutic from Products of Conception, Via Natural or Artificial Opening (ICD-10-PCS; 2019-05-30)
DX: O13.4 Gestational [pregnancy-induced] hypertension without significant proteinuria, complicating childbirth (principal); Z37.0 Single live birth; O34.211 Maternal care for low transverse scar from previous cesarean delivery; O99.824 Streptococcus B carrier state complicating childbirth; O99.334 Smoking (tobacco) complicating childbirth; F17.210 Nicotine dependence, cigarettes, uncomplicated; Z28.21 Immunization not carried out because of patient refusal; Z3A.39 39 weeks gestation of pregnancy
CPT/HCPCS: 36415; 80053; 80307; 81005; 82570; 83615; 84156; 84550; 85025; 85027; 86592; 86850; 86900; 86901; 86920; 87491; 87591; 94760; C1726; J0360; J2405; J2590; J3010; J3490

== ENCOUNTER 2020-02-02 15:39 | Emergency (ER) | payer MEDICAID ==
[2020-02-02 15:49] VITALS: BP 163/100
--- NOTE | 2020-02-02 17:00 | ER Document Report ---
HPI - HPI Patient complains to provider of: Lump in breast Time Seen by Provider: 02/02/20 16:48 Onset: Other - Months Onset/Duration: Persistent Context: Presents complaint of tender lump to the right breast for the past 3 months. Patient also has an area under her right axilla. Patient states that every other day she has eye redness, itchiness and swelling to the sclera. Patient denies any eye symptoms at this time. Patient denies any fever. Associated Symptoms: Other - Breast lump, axillary lump. denies: Nonproductive cough, Productive cough, Fever Exacerbated by: Denies Relieved by: Denies Similar symptoms previously: No Recently seen / treated by doctor: No - ROS ROS below otherwise negative: Yes Systems Reviewed and Negative: Yes All other systems reviewed and negative - EENT EENT: REPORTS: Eye problems - CARDIOVASCULAR Cardiovascular: DENIES: Chest pain Notes: Lump in the right breast - RESPIRATORY Respiratory: DENIES: Coughing - GASTROINTESTINAL Gastrointestinal: DENIES: Nausea, Patient vomiting - DERM Skin Color: Normal Notes: Axillary lumps Past Medical History - General Information source: Patient - Social History Smoking Status: Never Smoker Frequency of alcohol use: None Drug Abuse: None Occupation: None Family History: Reviewed & Not Pertinent - Past Medical History Cardiac Medical History: Reports: Hx Hypertension - preclampsia Pulmonary Medical History: Denies: Hx Tuberculosis Endocrine Medical History: Reports: Hx Diabetes Mellitus Type 2 - gestational Renal/ Medical History: Denies: Hx Peritoneal Dialysis Skin Medical History: Reports Hx MRSA Past Surgical History: Reports: Hx Section - x1 - Immunizations Immunizations up to date: Yes Hx Diphtheria, Pertussis, Tetanus Vaccination: Yes Vertical Provider Document - CONSTITUTIONAL Agree With Documented VS: Yes Exam Limitations: No Limitations General Appearance: WD/WN, No Apparent Distress - INFECTION CONTROL TRAVEL OUTSIDE OF THE [place] IN LAST 30 DAYS: No - HEENT HEENT: Atraumatic, Normocephalic Notes: Sclera clear bilaterally - NECK Neck: Normal Inspection, Supple. negative: Lymphadenopathy-Left, Lymphadenopathy-Right - RESPIRATORY Respiratory: Breath Sounds Normal, No Respiratory Distress - CARDIOVASCULAR Cardiovascular: Regular Rate, Regular Rhythm - REPRODUCTIVE Notes: Patient with tender nodule to right breast, normal skin color and temperature overlying the area, no concern for abscess. No discharge from the nipple. - BACK Back: Normal Inspection - MUSCULOSKELETAL/EXTREMETIES Musculoskeletal/Extremeties: PARUL HOYOS - NEURO Level of Consciousness: Awake, Alert, Appropriate Motor/Sensory: No Motor Deficit - DERM Integumentary: Warm, Dry. negative: Abscess Notes: Tender palpable half centimeter nodular lesion to right axilla, no overlying erythema, no drainable abscess. Course - Re-evaluation Re-evalutation: 02/02/20 16:58 Based on history suspect patient likely with an allergic conjunctivitis, will prescribe Pataday. Patient advised that this medication is [id number]. Patient encouraged to follow-up with her primary doctor for an outpatient mammogram to further evaluate nodule to the breast. - Vital Signs Vital signs: Temp Pulse Resp BP Pulse Ox 98.3 F 79 16 163/100 H 100 02/02/20 15:47 02/02/20 15:47 02/02/20 15:47 02/02/20 15:47 02/02/20 15:47 Discharge - Discharge Clinical Impression: Breast lump Allergic conjunctivitis Qualifiers: Laterality: right Qualified Code(s): H10.11 - Acute atopic conjunctivitis, right eye Axillary lump Qualifiers: Laterality: right Qualified Code(s): R22.31 - Localized swelling, mass and lump, right upper limb Condition: Stable Disposition: HOME, SELF-CARE Instructions: Breast Lumps ([facility]), Conjunctivitis, Allergic, Trimethoprim-Sulfa ([facility]) Additional Instructions: Return immediately for any new or worsening symptoms Followup with your primary care provider, call tomorrow to make a followup appointment Apply warm compresses to the axillary area Follow-up with your primary doctor, they can set you up for an outpatient mammogram to further evaluate breast lump Prescriptions: Sulfamethoxazole/Trimethoprim [Bactrim Ds Tablet] 1 each PO BID #14 tablet Olopatadine HCl [Patanol 0.1% Oph Soln 5 Ml Bottle] 1 drop OU DAILY #1 bottle Referrals: GERALDO PUGH CNM [Primary Care Provider] - Follow up as needed HAMMAD WEBSTER DO [NO LOCAL MD] - Follow up tomorrow
== END 2020-02-02 17:16 | disposition home or self-care (01) ==
LOC: ER 15:39
DX: R22.31 Localized swelling, mass and lump, right upper limb (principal); H10.11 Acute atopic conjunctivitis, right eye; Z86.14 Personal history of Methicillin resistant Staphylococcus aureus infection
CPT/HCPCS: 99283

== ENCOUNTER 2020-02-26 09:52 | Emergency (ER) | payer MEDICAID ==
[2020-02-26 09:57] VITALS: BP 174/108
--- NOTE | 2020-02-26 10:08 | ER Document Report ---
ED Medical Screen (RME) - General Chief Complaint: Dizziness Stated Complaint: DIZZINESS Time Seen by Provider: 02/26/20 10:02 Primary Care Provider: CHELSI PIKE FNP [Primary Care Provider] - Follow up as needed Mode of Arrival: Ambulatory TRAVEL OUTSIDE OF THE [place] IN LAST 30 DAYS: No - HPI Notes: 02/26/20 10:09 34 yr old female with a hx of HTN presents today for complaints of dizziness, worst headache of life that started this morning at 7am. pt states she does not have a hx of migraines or headaches, reports only gets headaches "when my blood pressure is really high". States that she takes procardia, usually takes it mid- day, but states it hasn't been working very well. Patient has not taken her blood pressure medication today. Has not tried any irlz-bct-qwwplae medications. reports family hx of mom having a CVA, CA. unsure about father's medical history. denies any cp, sob, n/v/d. eating and drinking any issues. Pressure in triage was 170/102 heart rate 82 I have greeted and performed a rapid initial assessment of this patient. A comprehensive ED assessment and evaluation of the patient, analysis of test results and completion of the medical decision making process will be conducted by additional ED providers. PHYSICAL EXAMINATION: GENERAL: Well-appearing, well-nourished and in no acute distress. HEAD: Atraumatic, normocephalic. EYES: Pupils equal round extraocular movements intact, conjunctiva are normal. NECK: Normal range of motion CV: s1, s2 regular LUNGS: No respiratory distress NEUROLOGICAL: Normal speech, normal gait. 02/26/20 10:15 - Related Data Allergies/Adverse Reactions: No Known Allergies Allergy (Verified 02/26/20 10:00) Past Medical History - Past Medical History Cardiac Medical History: Reports: Hx Hypertension - preclampsia Pulmonary Medical History: Denies: Hx Tuberculosis Endocrine Medical History: Reports: Hx Diabetes Mellitus Type 2 - gestational Renal/ Medical History: Denies: Hx Peritoneal Dialysis Skin Medical History: Reports Hx MRSA Past Surgical History: Reports: Hx Section - x1 - Immunizations Immunizations up to date: Yes Hx Diphtheria, Pertussis, Tetanus Vaccination: Yes Physical Exam - Vital signs Vitals: Temp Pulse Resp BP Pulse Ox 98.4 F 82 16 174/108 H 100 02/26/20 09:54 07/22/20 09:54 02/26/20 09:54 02/26/20 09:54 02/26/20 09:54 Course - Vital Signs Vital signs: Temp Pulse Resp BP Pulse Ox 98.4 F 82 16 174/108 H 100 02/26/20 09:54 02/26/20 09:54 02/26/20 09:54 02/26/20 09:54 02/26/20 09:54 Doctor's Discharge - Discharge Referrals: CHELSI PIKE FNP [Primary Care Provider] - Follow up as needed
[2020-02-26 10:39] LABS: ABSOLUTE EOSINOPHILS # (AUTO) 0.2 10^3/uL (0.0-0.6); ABSOLUTE LYMPHOCYTES (AUTO) 2.2 10^3/uL (0.5-4.7); ABSOLUTE MONOCYTES (AUTO) 0.3 10^3/uL (0.1-1.4); APPEARANCE,URINE SLIGHTLY-CLOUDY; BASOPHILS % (AUTO) 0.7 % (0-2); BILIRUBIN,URINE NEGATIVE (NEGATIVE); COLOR,URINE AMBER; GLUCOSE, URINE NEGATIVE (NEGATIVE); HEMATOCRIT 40.1 % (36.0-47.0); HEMOGLOBIN 13.1 g/dL (12.0-15.5); KETONES,URINE NEGATIVE (NEGATIVE); LEUKOCYTE ESTERASE,URINE TRACE (NEGATIVE); LYMPHOCYTES % (AUTO) 38.4 % (13-45); MEAN CORPUSCULAR HEMOGLOBIN 26.1 pg (27.0-33.4); MEAN CORPUSCULAR HGB CONC 32.6 g/dL (32.0-36.0); MEAN CORPUSCULAR VOLUME 80 fl (80-97); MONOCYTES % (AUTO) 5.3 % (3-13); NITRITE,URINE NEGATIVE (NEGATIVE); PLATELET COUNT 358 10^3/uL (150-450); PROTEIN,URINE 100 mg/dL (NEGATIVE); RED BLOOD COUNT 5.01 10^6/uL (3.72-5.28); RED CELL DISTRIBUTION WIDTH 17.4 % (11.5-14.0); SEGMENTED NEUTROPHILS % (AUTO) 52.6 % (42-78); TOTAL CELLS COUNTED % (AUTO) 100 %; URINE SPECIFIC GRAVITY 1.028; WHITE BLOOD COUNT 5.7 10^3/uL (4.0-10.5)
--- NOTE | 2020-02-26 10:40 | RADIOLOGY REPORT (SQ) ---
EXAM DESCRIPTION: CT HEAD WITHOUT IMAGES COMPLETED DATE/TIME: 02/26/2020 10:26 am REASON FOR STUDY: "worst CAMARA of life", b/p 170/102 COMPARISON: None. TECHNIQUE: Axial images acquired through the brain without intravenous contrast. Images reviewed wi th bone, brain and subdural windows. Additional sagittal and coronal reconstructions were generated. Images stored on PACS. All CT scanners at this facility use dose modulation, iterative reconstruction, and/or weight based d osing when appropriate to reduce radiation dose to as low as reasonably achievable (ALARA). [facility]: Dose Right [facility]: CareDose [facility]: Dose Right [facility]: Teradose 4D [facility]: Finalta RADIATION DOSE: CT Rad equipment meets quality standard of care and radiation dose reduction techniq ues were employed. CTDIvol: 53.2 mGy. DLP: 1017 mGy-cm. mGy. LIMITATIONS: None. FINDINGS: VENTRICLES: Normal size and contour. CEREBRUM: No masses. No hemorrhage. No midline shift. No evidence for acute infarction. Normal gra y/white matter differentiation. No areas of low density in the white matter. CEREBELLUM: No masses. No hemorrhage. No alteration of density. No evidence for acute infarction. EXTRAAXIAL SPACES: No fluid collections. No masses. ORBITS AND GLOBE: No intra- or extraconal masses. Normal contour of globe without masses. CALVARIUM: No fracture. PARANASAL SINUSES: No fluid or mucosal thickening. SOFT TISSUES: No mass or hematoma. OTHER: No other significant finding. IMPRESSION: NORMAL BRAIN CT WITHOUT CONTRAST. EVIDENCE OF ACUTE STROKE: NO. COMMENT: Quality ID # [id number]: Final reports with documentation of one or more dose reduction techniques (e.g., Automated exposure control, adjustment of the mA and/or kV according to patient size, use of iterative reconstruction technique) TECHNICAL DOCUMENTATION: JOB ID: [id number] 2010 [employer]- All Rights Reserved Reading location - IP/workstation name: [email or web address]
--- NOTE | 2020-02-26 10:43 | RADIOLOGY REPORT (SQ) ---
EXAM DESCRIPTION: CHEST SINGLE VIEW IMAGES COMPLETED DATE/TIME: 02/26/2020 10:31 am REASON FOR STUDY: "worst CAMARA of life", b/p 170/102 COMPARISON: 01/13/2015 EXAM PARAMETERS: NUMBER OF VIEWS: One view. TECHNIQUE: Single frontal radiographic view of the chest acquired. RADIATION DOSE: NA LIMITATIONS: None. FINDINGS: LUNGS AND PLEURA: No opacities, masses or pneumothorax. No pleural effusion. MEDIASTINUM AND HILAR STRUCTURES: No masses. Contour normal. HEART AND VASCULAR STRUCTURES: Heart normal in size. Normal vasculature. BONES: No acute findings. HARDWARE: None in the chest. OTHER: No other significant finding. IMPRESSION: NO ACUTE RADIOGRAPHIC FINDING IN THE CHEST. TECHNICAL DOCUMENTATION: JOB ID: [id number] 2010 [employer]- All Rights Reserved Reading location - IP/workstation name: [email or web address]
[2020-02-26 11:04] LABS: ALBUMIN 4.4 g/dL (3.5-5.0); ALKALINE PHOSPHATASE 85 U/L (38-126); ANION GAP 6 (5-19); ASPARTATE AMINO TRANSFERASE 22 U/L (14-36); BILIRUBIN,TOTAL 0.8 mg/dL (0.2-1.3); BLOOD UREA NITROGEN 8 mg/dL (7-20); CALCIUM 9.3 mg/dL (8.4-10.2); CARBON DIOXIDE 26 mmol/L (22-30); CHLORIDE 106 mmol/L (98-107); GLUCOSE 96 mg/dL (75-110); POTASSIUM 4.2 mmol/L (3.6-5.0); TOTAL PROTEIN 8.1 g/dL (6.3-8.2)
--- NOTE | 2020-02-26 11:05 | ER Document Report ---
ED General - General Chief Complaint: Headache Stated Complaint: DIZZINESS Time Seen by Provider: 02/26/20 10:02 Primary Care Provider: CHELSI PIKE FNP [Primary Care Provider] - Follow up as needed Mode of Arrival: Ambulatory Notes: Patient eloped. I did not see the patient. She was seen only in triage by the triage provider. TRAVEL OUTSIDE OF THE [place] IN LAST 30 DAYS: No - Related Data Allergies/Adverse Reactions: No Known Allergies Allergy (Verified 02/26/20 10:00) Past Medical History - Social History Smoking Status: Current Every Day Smoker Chew tobacco use (# tins/day): No Frequency of alcohol use: None Drug Abuse: None Family History: Reviewed & Not Pertinent Patient has homicidal ideation: No - Past Medical History Cardiac Medical History: Reports: Hx Hypertension - preclampsia Pulmonary Medical History: Denies: Hx Tuberculosis Endocrine Medical History: Reports: Hx Diabetes Mellitus Type 2 - gestational Renal/ Medical History: Denies: Hx Peritoneal Dialysis Skin Medical History: Reports Hx MRSA Past Surgical History: Reports: Hx Section - x1 - Immunizations Immunizations up to date: Yes Hx Diphtheria, Pertussis, Tetanus Vaccination: Yes Physical Exam - Vital signs Vitals: Temp Pulse Resp BP Pulse Ox 98.4 F 82 16 174/108 H 100 02/26/20 09:54 02/26/20 09:54 02/26/20 09:54 02/26/20 09:54 02/26/20 09:54 Course - Vital Signs Vital signs: Temp Pulse Resp BP Pulse Ox 98.4 F 82 16 174/108 H 100 02/26/20 10:01 02/26/20 09:54 02/26/20 09:54 02/26/20 09:54 02/26/20 09:54 - Laboratory Result Diagrams: 02/26/20 10:15 02/26/20 10:15 Laboratory results interpreted by me: 02/26/20 02/26/20 10:15 10:15 MCH 26.1 L RDW 17.4 H Urine Protein 100 H Urine Blood LARGE H Urine Urobilinogen 2.0 H Ur Leukocyte Esterase TRACE H Urine Ascorbic Acid 40 H Discharge - Discharge Clinical Impression: Headache Qualifiers: Headache type: unspecified Headache chronicity pattern: unspecified pattern Intractability: not intractable Qualified Code(s): R51 - Headache Condition: Fair Disposition: ELOPED Referrals: CHELSI PIKE FNP [Primary Care Provider] - Follow up as needed
--- NOTE | 2020-02-27 09:19 | EKG REPORT ---
SEVERITY:- BORDERLINE ECG - SINUS RHYTHM INFERIOR Q WAVES, PROBABLY NORMAL VARIATION : Confirmed by: Kira Rust 27-Feb-2020 09:18:46
== END 2020-02-26 11:21 | disposition left against medical advice (07) ==
LOC: ER 09:52
DX: R51 Headache (principal); R42 Dizziness and giddiness; F17.200 Nicotine dependence, unspecified, uncomplicated; Z86.14 Personal history of Methicillin resistant Staphylococcus aureus infection
CPT/HCPCS: 36415; 70450; 71045; 80053; 81001; 81025; 83735; 84484; 85025; 93005; 93010; 99281

== ENCOUNTER → 2020-02-26 | Outpatient (CLI) | payer MEDICAID ==
--- NOTE | 2020-02-26 11:12 | WOMENS IMAGING REPORT ---
EXAM DESCRIPTION: 3D DX MAMMO BILAT; U/S BREAST UNILATERAL, COMPL IMAGES COMPLETED DATE/TIME: 02/26/2020 9:12 am; 02/26/2020 9:45 am REASON FOR STUDY: N64.4 MASTODYNIA; RT BREAST N64.4 N64.4 MASTODYNIA COMPARISON: None. EXAM PARAMETERS: Standard craniocaudal and mediolateral oblique views of each breast recorded using digital acquisition and breast tomosynthesis. Cone compression views right breast. Read with the assistance of CAD: .[employer] - [employer] Version 9.2 LIMITATIONS: None. FINDINGS: RIGHT BREAST MASSES: No suspicious masses. CALCIFICATIONS: No new or suspicious calcifications. ARCHITECTURAL DISTORTION: None. ASYMMETRY: None noted. OTHER: No other significant findings. LEFT BREAST MASSES: No suspicious masses. CALCIFICATIONS: No new or suspicious calcifications. ARCHITECTURAL DISTORTION: None. ASYMMETRY: None noted. OTHER: No other significant finding. Ultrasound was performed. Mildly dilated subareolar ducts without evidence of intra ductal lesion. IMPRESSION: No evidence of malignancy. BREAST DENSITY: b. There are scattered areas of fibroglandular density. BIRAD: ASSESSMENT: 2 Benign findings. RECOMMENDATION: RECOMMENDED FOLLOW UP: Clinical follow-up of any discharge. SPECIFIC INTERVENTION/IMAGING/CONSULTATION RECOMMENDED:No additional intervention/ imaging/consultati on needed at this time. COMMUNICATION:The imaging findings were not discussed with the patient. Her referring provider has be en notified of the findings. COMMENT: The patient has been notified of the results by letter per [place] requirements. Additional no tification policies are in place for contacting patient with suspicious or incomplete findings. Quality ID #[id number]: The [employer] recommends an annual screening mammogram for women aged 40 years or over. This facility utilizes a reminder system to ensure that all patients receive reminder letters, and/or direct phone calls for appointments. This includes reminders for routine scr eening mammograms, diagnostic mammograms, or other Breast Imaging Interventions when appropriate. Th is patient will be placed in the appropriate reminder system. TECHNICAL DOCUMENTATION: FINDING NUMBER: (1) ASSESSMENT: (1) JOB ID: [id number] 2010 [email or web address]- All Rights Reserved Reading location - IP/workstation name: [email or web address]
--- NOTE | 2020-02-26 11:12 | WOMENS IMAGING REPORT ---
EXAM DESCRIPTION: 3D DX MAMMO BILAT; U/S BREAST UNILATERAL, COMPL IMAGES COMPLETED DATE/TIME: 02/26/2020 9:12 am; 02/26/2020 9:45 am REASON FOR STUDY: N64.4 MASTODYNIA; RT BREAST N64.4 N64.4 MASTODYNIA COMPARISON: None. EXAM PARAMETERS: Standard craniocaudal and mediolateral oblique views of each breast recorded using digital acquisition and breast tomosynthesis. Cone compression views right breast. Read with the assistance of CAD: .[employer] Version 9.2 LIMITATIONS: None. FINDINGS: RIGHT BREAST MASSES: No suspicious masses. CALCIFICATIONS: No new or suspicious calcifications. ARCHITECTURAL DISTORTION: None. ASYMMETRY: None noted. OTHER: No other significant findings. LEFT BREAST MASSES: No suspicious masses. CALCIFICATIONS: No new or suspicious calcifications. ARCHITECTURAL DISTORTION: None. ASYMMETRY: None noted. OTHER: No other significant finding. Ultrasound was performed. Mildly dilated subareolar ducts without evidence of intra ductal lesion. IMPRESSION: No evidence of malignancy. BREAST DENSITY: b. There are scattered areas of fibroglandular density. BIRAD: ASSESSMENT: 2 Benign findings. RECOMMENDATION: RECOMMENDED FOLLOW UP: Clinical follow-up of any discharge. SPECIFIC INTERVENTION/IMAGING/CONSULTATION RECOMMENDED:No additional intervention/ imaging/consultati on needed at this time. COMMUNICATION:The imaging findings were not discussed with the patient. Her referring provider has be en notified of the findings. COMMENT: The patient has been notified of the results by letter per [place] requirements. Additional no tification policies are in place for contacting patient with suspicious or incomplete findings. Quality ID #[id number]: The [employer] recommends an annual screening mammogram for women aged 40 years or over. This facility utilizes a reminder system to ensure that all patients receive reminder letters, and/or direct phone calls for appointments. This includes reminders for routine scr eening mammograms, diagnostic mammograms, or other Breast Imaging Interventions when appropriate. Th is patient will be placed in the appropriate reminder system. TECHNICAL DOCUMENTATION: FINDING NUMBER: (1) ASSESSMENT: (1) JOB ID: [id number] 2010 [employer]- All Rights Reserved Reading location - IP/workstation name: [email or web address]
== END ==
LOC: WI 08:47
PROVIDERS: ATTEND Nurse Practitioner Family
DX: N64.4 Mastodynia (principal); N64.89 Other specified disorders of breast
CPT/HCPCS: 76641; 77066; G0279; 77062

== ENCOUNTER 2020-07-10 14:05 | Emergency (ER) | payer MEDICAID ==
[2020-07-10 14:21] VITALS: BP 145/74
--- NOTE | 2020-07-10 14:54 | ER Document Report ---
ED Medical Screen (RME) - General Chief Complaint: Breast Problem Stated Complaint: BREAST PAIN Time Seen by Provider: 07/10/20 14:49 Primary Care Provider: CHELSI PIKE FNP [Primary Care Provider] - Follow up as needed Mode of Arrival: Ambulatory Information source: Patient Notes: 34-year-old female presented to ED for complaint of pain to the right breast. She states she has had pain in this breast in the past and she went and had her ultrasound her mammogram and they told her she just had a very dense breast. She states the lump is much larger now than it was before and now it is very painful. It is at the 1 o'clock position to the nipple and goes up to the right lateral direction. She states that shape sort of like a "lollipop ". States a month ago it was leaking some blood but there is no drainage at this time. She states there is no fevers or any other discomfort. We will get blood and urine and have her seen by another provider. I have greeted and performed a rapid initial assessment of this patient. A comprehensive ED assessment and evaluation of the patient, analysis of test results and completion of medical decision making process will be conducted by an additional ED providers. TRAVEL OUTSIDE OF THE [place] IN LAST 30 DAYS: No - Related Data Allergies/Adverse Reactions: No Known Allergies Allergy (Verified 02/26/20 10:00) Past Medical History - Past Medical History Cardiac Medical History: Reports: Hx Hypertension - preclampsia Pulmonary Medical History: Denies: Hx Tuberculosis Endocrine Medical History: Reports: Hx Diabetes Mellitus Type 2 - gestational Renal/ Medical History: Denies: Hx Peritoneal Dialysis Skin Medical History: Reports Hx MRSA Past Surgical History: Reports: Hx Section - x1 - Immunizations Immunizations up to date: Yes Hx Diphtheria, Pertussis, Tetanus Vaccination: Yes Physical Exam - Vital signs Vitals: Temp Pulse Resp BP Pulse Ox 98.9 F 86 20 145/74 H 100 07/10/20 14:20 07/10/20 14:20 07/10/20 14:20 07/10/20 14:20 07/10/20 14:20 Course - Vital Signs Vital signs: Temp Pulse Resp BP Pulse Ox 98.9 F 86 20 145/74 H 100 07/10/20 14:20 07/10/20 14:20 07/10/20 14:20 07/10/20 14:20 07/10/20 14:20 Doctor's Discharge - Discharge Referrals: CHELSI PIKE FNP [Primary Care Provider] - Follow up as needed
[2020-07-10 15:24] LABS: ABSOLUTE BASOPHILS # (AUTO) 0.1 10^3/uL (0.0-0.2); ABSOLUTE EOSINOPHILS # (AUTO) 0.1 10^3/uL (0.0-0.6); ABSOLUTE LYMPHOCYTES (AUTO) 2.2 10^3/uL (0.5-4.7); ABSOLUTE MONOCYTES (AUTO) 0.3 10^3/uL (0.1-1.4); ABSOLUTE NEUT (AUTO) 3.4 10^3/uL (1.7-8.2); BASOPHILS % (AUTO) 1.4 % (0-2); EOSINOPHILS % (AUTO) 2.2 % (0-6); HEMATOCRIT 36.9 % (36.0-47.0); LYMPHOCYTES % (AUTO) 35.8 % (13-45); MEAN CORPUSCULAR HGB CONC 32.5 g/dL (32.0-36.0); MEAN CORPUSCULAR VOLUME 80 fl (80-97); MONOCYTES % (AUTO) 5.6 % (3-13); PLATELET COUNT 345 10^3/uL (150-450); TOTAL CELLS COUNTED % (AUTO) 100 %; WHITE BLOOD COUNT 6.1 10^3/uL (4.0-10.5)
[2020-07-10 15:25] LABS: APPEARANCE,URINE CLEAR; BILIRUBIN,URINE NEGATIVE (NEGATIVE); COLOR,URINE YELLOW; GLUCOSE, URINE NEGATIVE (NEGATIVE); KETONES,URINE NEGATIVE (NEGATIVE); LEUKOCYTE ESTERASE,URINE NEGATIVE (NEGATIVE); NITRITE,URINE NEGATIVE (NEGATIVE); PROTEIN,URINE NEGATIVE (NEGATIVE); URINE SPECIFIC GRAVITY 1.031
[2020-07-10 15:43] LABS: ALKALINE PHOSPHATASE 68 U/L (38-126); ANION GAP 7 (5-19); ASPARTATE AMINO TRANSFERASE 20 U/L (14-36); BILIRUBIN,DIRECT 0.1 mg/dL (0.0-0.4); BILIRUBIN,TOTAL 0.4 mg/dL (0.2-1.3); BLOOD UREA NITROGEN 12 mg/dL (7-20); CALCIUM 8.8 mg/dL (8.4-10.2); CARBON DIOXIDE 23 mmol/L (22-30); CHLORIDE 106 mmol/L (98-107); POTASSIUM 3.8 mmol/L (3.6-5.0); TOTAL PROTEIN 7.4 g/dL (6.3-8.2)
[2020-07-10 15:45] LABS: GLUCOSE 63 mg/dL (75-110)
== END 2020-07-10 17:15 | disposition left against medical advice (07) ==
LOC: ER 14:05
DX: N63.0 Unspecified lump in unspecified breast (principal); N64.4 Mastodynia; Z53.20 Procedure and treatment not carried out because of patient's decision for unspecified reasons
CPT/HCPCS: 36415; 80053; 81001; 84703; 85025; 99281

== ENCOUNTER 2020-07-31 06:46 | Emergency (ER) | payer MEDICAID ==
[2020-07-31 07:06] VITALS: BP 137/80
[2020-07-31 08:35] LABS: ABSOLUTE BASOPHILS # (AUTO) 0.1 10^3/uL (0.0-0.2); ABSOLUTE EOSINOPHILS # (AUTO) 0.1 10^3/uL (0.0-0.6); ABSOLUTE MONOCYTES (AUTO) 0.4 10^3/uL (0.1-1.4); ABSOLUTE NEUT (AUTO) 4.2 10^3/uL (1.7-8.2); EOSINOPHILS % (AUTO) 0.8 % (0-6); HEMATOCRIT 40.7 % (36.0-47.0); HEMOGLOBIN 13.4 g/dL (12.0-15.5); MEAN CORPUSCULAR HEMOGLOBIN 26.4 pg (27.0-33.4); MEAN CORPUSCULAR HGB CONC 33.1 g/dL (32.0-36.0); MEAN CORPUSCULAR VOLUME 80 fl (80-97); MONOCYTES % (AUTO) 6.2 % (3-13); PLATELET COUNT 381 10^3/uL (150-450); RED CELL DISTRIBUTION WIDTH 17.7 % (11.5-14.0); TOTAL CELLS COUNTED % (AUTO) 100 %; WHITE BLOOD COUNT 6.7 10^3/uL (4.0-10.5)
[2020-07-31 08:55] LABS: APPEARANCE,URINE SLIGHTLY-CLOUDY; BILIRUBIN,URINE NEGATIVE (NEGATIVE); COLOR,URINE AMBER; GLUCOSE, URINE NEGATIVE (NEGATIVE); KETONES,URINE 20 mg/dL (NEGATIVE); LEUKOCYTE ESTERASE,URINE SMALL (NEGATIVE); NITRITE,URINE NEGATIVE (NEGATIVE); PROTEIN,URINE 100 mg/dL (NEGATIVE); URINE SPECIFIC GRAVITY 1.038
[2020-07-31 09:06] LABS: ALBUMIN 4.6 g/dL (3.5-5.0); ALKALINE PHOSPHATASE 77 U/L (38-126); ANION GAP 11 (5-19); ASPARTATE AMINO TRANSFERASE 20 U/L (14-36); BILIRUBIN,DIRECT 0.2 mg/dL (0.0-0.4); BILIRUBIN,TOTAL 1.4 mg/dL (0.2-1.3); BLOOD UREA NITROGEN 12 mg/dL (7-20); CALCIUM 9.5 mg/dL (8.4-10.2); CARBON DIOXIDE 26 mmol/L (22-30); CHLORIDE 100 mmol/L (98-107); GLUCOSE 89 mg/dL (75-110); POTASSIUM 3.9 mmol/L (3.6-5.0); TOTAL PROTEIN 8.6 g/dL (6.3-8.2)
[2020-07-31] MEDS ORDERED: DEXTROSE 5%-LACTATED RINGERS 1,000 ML IV ONE (10:21)
[2020-07-31] MEDS ORDERED: METOCLOPRAMIDE HCL INJ/PF 10 MG/2 ML SDV IV ONE (10:21)
--- NOTE | 2020-07-31 10:28 | ER Document Report ---
ED General - General Chief Complaint: Abdominal Pain Stated Complaint: ABDOMINAL PAIN/VOMITING Time Seen by Provider: 07/31/20 10:06 Primary Care Provider: CLEO WANG MD [Primary Care Provider] - Follow up as needed TRAVEL OUTSIDE OF THE [place] IN LAST 30 DAYS: No - HPI Notes: Chief complaint: Nausea and vomiting in History of present illness: 34-year-old female 9 para 7 AB 1 with last menses "mid May" believes she is and now says that she has not been able to take anything substantially by mouth for the last 1 week presenting with ongoing nausea and generalized weakness. She denies fever chills. She denies hematemesis. Currently on no medications. No known allergies. No other significant medical history. Patient says she usually smokes cigarettes but has not smoked any in the last week. She denies alcohol consumption. She denies prior surgery. She has some mild epigastric burning and some intermittent cramping in epigastrium. No severe abdominal pain. Denies dysuria. Denies back pain. Denies any vaginal bleeding. - Related Data Allergies/Adverse Reactions: No Known Allergies Allergy (Verified 07/31/20 09:45) Past Medical History - General Information source: Patient - Social History Smoking Status: Current Some Day Smoker Chew tobacco use (# tins/day): No Frequency of alcohol use: None Drug Abuse: None Family History: Reviewed & Not Pertinent Patient has homicidal ideation: No - Past Medical History Cardiac Medical History: Reports: Hx Hypertension - preclampsia Pulmonary Medical History: Denies: Hx Tuberculosis Endocrine Medical History: Reports: Hx Diabetes Mellitus Type 2 - gestational Renal/ Medical History: Denies: Hx Peritoneal Dialysis Skin Medical History: Reports Hx MRSA Past Surgical History: Reports: Hx Section - x1 - Immunizations Immunizations up to date: Yes Hx Diphtheria, Pertussis, Tetanus Vaccination: Yes Review of Systems - Review of Systems Notes: Constitutional: Negative for fever. HENT: Negative for sore throat. Eyes: Negative for visual changes. Cardiovascular: Negative for chest pain. Respiratory: Negative for shortness of breath. Gastrointestinal: As per HPI. Genitourinary: As per HPI. Musculoskeletal: Negative for back pain. Skin: Negative for rash. Neurological: Negative for headaches, weakness or numbness. 10 point ROS negative except as marked above and in HPI. Physical Exam - Vital signs Vitals: Temp Pulse Resp BP Pulse Ox 97.8 F 80 16 137/80 H 100 07/31/20 07:01 07/31/20 07:01 07/31/20 07:01 07/31/20 07:01 07/31/20 07:01 - Notes Notes: GENERAL: Well-developed well-nourished female approximately stated age appearing in no acute distress. SKIN: Good turgor no rashes. HEAD: Normocephalic atraumatic. EYES: PERRLA. EOMI. Conjunctivae and sclerae clear. EARS: CANALS AND TMS CLEAR. NOSE: CLEAR. MOUTH: Moist mucosa. Good dentition. No stridor or edema. No drooling. NECK: Supple. No masses or thyromegaly. No adenopathy. Carotids 2+ without bruits. No JVD. BACK: Symmetrical without tenderness. CHEST: Respirations unlabored. Breath sounds clear and symmetrical. HEART: Regular rhythm. No murmur gallop or rub. ABDOMEN: Soft nontender without masses, organomegaly or rebound. Bowel sounds normally active. No bruits. GENITALIA: Deferred. EXTREMITIES: No edema. No calf tenderness. Cap refill less than 1.5 seconds. Dorsalis pedis and posterior tibial pulses 3+ and symmetrical. NEUROLOGICAL: GCS 15. Alert and oriented x3. Fluent speech. Cranial nerves II through XII intact. Sensorimotor and cerebellar normal. Normal tone. PSYCHIATRIC: Appropriate affect. Course - Re-evaluation Re-evalutation: 07/31/20 12:45 Patient appears to have emesis of with early IUP at about 7-1/2 weeks by ultrasound. Urine is remarkable for ketosis only. CBC and chemistry profile unremarkable. Patient received 1 L of D5LR IV and also got some IV Reglan. She did very well with this and subsequently tolerated p.o. fluids. I advised her of her results and she tells me she [facility] within the next week which I think would be totally appropriate. Findings, clinical impression and plan of treatment have been discussed with patient/family. Understanding of current findings and recommendations has been acknowledged by them and there is agreement regarding disposition and follow-up. - Vital Signs Vital signs: Temp Pulse Resp BP Pulse Ox 97.8 F 80 16 137/80 H 100 07/31/20 07:01 07/31/20 07:01 07/31/20 07:01 07/31/20 07:01 07/31/20 07:01 - Laboratory Results Result Diagrams: 07/31/20 08:08 07/31/20 08:08 Laboratory Results Interpreted: 07/31/20 07/31/20 07/31/20 08:08 08:08 08:08 MCH 26.4 L RDW 17.7 H Sodium 136.7 L Total Bilirubin 1.4 H Total Protein 8.6 H Beta HCG, Quant Urine Protein 100 H Urine Ketones 20 H Urine Blood MODERATE H Urine Urobilinogen 4.0 H Ur Leukocyte Esterase SMALL H Urine Ascorbic Acid 20 H Urine HCG, Qual POSITIVE H 07/31/20 08:08 MCH RDW Sodium Total Bilirubin Total Protein Beta HCG, Quant 41850.00 H Urine Protein Urine Ketones Urine Blood Urine Urobilinogen Ur Leukocyte Esterase Urine Ascorbic Acid Urine HCG, Qual Critical Laboratory Results Reviewed: Yes Attending or Supervising Physician who Reviewed Labs: [facility] [place] Radiology Results Radiology Results Interpreted: 07/31/20 12:44 Obstetrics Ultrasound 07/31/20 10:20 IMPRESSION: LIVING INTRAUTERINE . EGA 7 weeks 5 days Trimester of : First trimester - 0 to 13 weeks. Critical Radiology Results Reviewed: No Critical Results Discharge - Discharge Clinical Impression: Hyperemesis of , IUP 7 weeks EGA Condition: Stable Disposition: HOME, SELF-CARE Additional Instructions: Hyperemesis Gravidarum Hyperemesis gravidarum is the medical term for severe vomiting during . We don't know exactly why it occurs, but it's a common problem. Dehydration can occur. This reduces blood flow to the placenta, decreasing the baby's nourishment. The baby will also become dehydrated. There can be harmful changes in blood sodium, potassium, or acid balance. Our goal is to correct, and prevent, dehydration. For severe cases, we give IV fluids. Antinausea medication will be prescribed. (Don't be concerned about " defects" -- the risk to you and your baby from the hyperemesis is the biggest problem. The antinausea medication is very safe at this stage of .) Call the doctor if you have vaginal bleeding, abdominal pain, severe l ightheadedness or weakness, or other alarming symptoms. Increase oral fluids. Take prescribed medication. Follow-up with your primary physician or with clinic at the [facility]. Return here as needed for new or worsening symptoms: Pain that is worsening or unimproved Uncontrolled vomiting High fever or shaking chills Overall worsening Prescriptions: Metoclopramide HCl [Reglan 10 mg Tablet] 10 mg PO ACHS PRN #30 tablet PRN Reason: Referrals: CLEO WANG MD [Primary Care Provider] - Follow up as needed
--- NOTE | 2020-07-31 11:06 | RADIOLOGY REPORT (SQ) ---
EXAM DESCRIPTION: U/S TE2AEES TRNABD 1GES W/ODOP IMAGES COMPLETED DATE/TIME: 07/31/2020 9:51 am REASON FOR STUDY: Abdominal pain, first trimester COMPARISON: None. TECHNIQUE: Transabdominal static and realtime grayscale images acquired of the pelvis. Additional se lected spectral and color Doppler images recorded. All images stored on PACs. [facility], [place],[address] CLINICAL DATES: LMP 05/24/2020. Clinical gestational age 9 weeks 5 days. LIMITATIONS: None. FINDINGS: FETUS: Single Living intrauterine . ULTRASOUND EGA: 7 weeks 5 days ULTRASOUND ELIANA: 03/14/2021 EFW: Not applicable less than 20 weeks. CRL: 1.39 cm FHR: 182 beats per minute. SURVEY: No visualized anomalies. AMNIOTIC FLUID: Adequate amount. PLACENTA: Not yet developed due to early gestation. SUBCHORIONIC BLEED: Yes SIZE OF BLEED: Small UTERUS: No masses. No anomalies. CERVICAL LENGTH: 3 cm Closed. RIGHT ADNEXA: Normal ovary with normal vascular flow. No adnexal free fluid. No adnexal masses. LEFT ADNEXA: Normal ovary with normal vascular flow. No adnexal free fluid. No adnexal masses. FREE FLUID: None. OTHER: No other significant finding. IMPRESSION: LIVING INTRAUTERINE . EGA 7 weeks 5 days Trimester of : First trimester - 0 to 13 weeks. TECHNICAL DOCUMENTATION: JOB ID: [id number] 2010 [employer]- All Rights Reserved Reading location - IP/workstation name: [email or web address]
== END 2020-07-31 12:25 | disposition home or self-care (01) ==
LOC: ER 06:46
DX: O21.0 Mild hyperemesis gravidarum (principal); O26.899 Other specified pregnancy related conditions, unspecified trimester; R10.13 Epigastric pain; R53.1 Weakness; O99.280 Endocrine, nutritional and metabolic diseases complicating pregnancy, unspecified trimester; E88.89 Other specified metabolic disorders; O99.330 Smoking (tobacco) complicating pregnancy, unspecified trimester; F17.210 Nicotine dependence, cigarettes, uncomplicated; Z86.32 Personal history of gestational diabetes; Z87.59 Personal history of other complications of pregnancy, childbirth and the puerperium; Z3A.00 Weeks of gestation of pregnancy not specified
CPT/HCPCS: 99285; 96361; 96374; 36415; 84702; 83690; 85025; 81025; 80053; 81001; 76801; J2765; J7121